=== PATIENT | female | born 1960 | race African-American/Black ===

== ENCOUNTER 2020-07-20 08:44 | Outpatient (CLI) | payer OTHER, SELFPAY | END 2020-07-20 08:45 | disposition home or self-care (01) | LOC: ANHAUDIO 08:46 | DX: H69.91 Unspecified Eustachian tube disorder, right ear (principal) | CPT/HCPCS: 92557; 92567 ==

== ENCOUNTER 2025-01-16 16:36 | Emergency (ER) | payer MEDICARE, MEDICAID, SELFPAY ==
--- OUTSIDE RECORDS SUMMARY | 2025-01-16 16:38 | XMS_ITS | Clinical Summary ---
Author Organization [facility] at [facility] Office Center Address [address] [place] [address] Care Team Providers Care Gis Consultant Name Role Phone CathyRossana beasley IRONER HAND Unavailable [phone] Kenroy Sheikh MD Unavailable [phone] Adry Shay MD Primary Care Provider [phone] Jerson Shoemaker Unavailable Unavailable Kiera Sanders MD Unavailable [phone] Allergies No known active allergies Medications budesonide-formo teroL (Symbicort) 160-4.5 mcg/actuation inhalerIndicatio ns:Moderate persistent asthma with acute exacerbation Inhale 2 puffs 2 (two) times a day Rinse mouth with water after use. Do not swallow. 10.2 g 5 05/20/20 24 Active blood glucose diagnostic (glucose blood) stripIndications :Type 2 diabetes mellitus with diabetic neuropathy, without long-term current use of insulin (HCC) Use to check blood sugar twice a day 200 each 3 07/08/20 24 025 Active baclofen (LIORESAL) 10 mg tablet Take 1 tablet (10 mg total) by mouth 3 (three) times a day as needed for muscle spasms 90 tablet 5 09/16/20 24 025 Active albuterol HFA (PROVENTIL HFA,VENTOLIN HFA,PROAIR HFA) 90 mcg/actuation inhalerIndicatio ns:Moderate persistent asthma with acute exacerbation INHALE TWO PUFFS BY MOUTH EVERY FOUR TO SIX HOURS NEEDED 1 each 9 10/04/20 24 Active blood glucose diagnostic (glucose blood) stripIndications :Type 2 diabetes mellitus with diabetic neuropathy, without long-term current use of insulin (HCC) Use to check blood sugar once a day 100 each 3 10/27/19 25 026 Active blood-glucose meter kitIndications:T ype 2 diabetes mellitus with diabetic neuropathy, without long-term current use of insulin (HCC) Use to check blood sugar once a day 1 kit 10/27/19 25 Active lancets (GrowlifeTouch Delica Plus Lancet) 33 gauge miscIndications: Type 2 diabetes mellitus with diabetic neuropathy, without long-term current use of insulin (HCC) USE TO TEST BLOOD SUGAR ONCE DAILY 100 each 3 10/27/19 25 Active rosuvastatin (CRESTOR) 40 mg tablet Take 1 tablet (40 mg total) by mouth daily 90 tablet 1 10/27/19 25 Active lidocaine (LIDODERM) 5 % Place 1 patch on the skin daily Remove & discard patch within 12 hours or as directed by MD. 15 patch 1 10/27/[address] (PROTONIX) 40 mg EC tablet Take 1 tablet (40 mg total) by mouth daily 30 tablet 5 11/05/19 25 026 Active potassium chloride (KAYCIEL) solution 20 mEq/15 mL TAKE 15 MLS BY MOUTH ONCE EVERY DAY. 750 mL 3 11/10/19 25 Active nicotine (NICODERM CQ) 14 mgIndications:Samantha boswell nicotine dependence without complication Place 1 patch on the skin daily 30 patch 2 11/11/19 25 Active benzonatate (TESSALON) 100 mg capsuleIndicatio ns:Cough Take 1 capsule (100 mg total) by mouth every 8 (eight) hours 21 capsule 11/22/19 25 Active acetaminophen (TYLENOL) 500 mg tablet Take 1 tablet (500 mg total) by mouth every 6 (six) hours as needed for pain 30 tablet 11/22/19 25 Active guaiFENesin (ROBITUSSIN) syrup 100 mg/5 mL Take 5-10 mL (100-200 mg total) by mouth every 4 (four) hours as needed for cough 60 mL 11/22/19 25 Active famotidine (PEPCID) 20 mg tablet Take 1 tablet (20 mg total) by mouth 2 (two) times a day 30 tablet 12/10/19 25 Active Jardiance 25 mg tablet TAKE 1 TABLET BY MOUTH DAILY 90 tablet 01/01/20 25 Active fluticasone propionate (FLONASE) 50 mcg/actuation nasal spray ADMINISTER 1 SPRAY INTO EACH NOSTRIL DAILY 1 each 1 01/11/20 25 Active fluticasone propionate (FLONASE) 50 mcg/actuation nasal spray ADMINISTER 1 SPRAY INTO EACH NOSTRIL DAILY 1 each 2 09/27/20 24 025 Discontinued empagliflozin (Jardiance) 25 mg tablet TAKE 1 TABLET BY MOUTH DAILY 90 tablet 10/25/19 25 025 Discontinued Active Problems Problem Noted Date Diagnosed Date Encounter for screening for lung cancer 04/13/20 24 Assessment & Plan (04/13/2024 11:19 AM CDT): Patient is scheduled for lung scan today and she is followed by the circuit court clerk Epigastric pain 10/14/2023 Assessment & Plan (10/14/2023 1:11 PM HOSPITALITY HOST): Patient with chronic epigastric pain and heartburn. Will start her on Prilosec 40 mg daily and make a referral to see a beater engineer helper for further evaluation Allergic rhinitis 09/08/2023 Left sided sciatica 09/08/2023 Assessment & Plan (09/08/2023 4:33 PM HOSPITALITY HOST): Patient with left side sciatica. Tylenol does not help. Will start her on lidocaine patch, 12 hours on and 12 hours off. Will order MRI of the lumbar spine for further evaluation. Near syncope 09/08/2023 Assessment & Plan (07/07/2024 12:41 PM CDT): Patient complains of episodes of dizziness and near-syncope. Her Accu-Chek in the office is 110. Will order Accu-Chek machine and told her to check her sugar at least twice daily. Her blood pressure is on the low side. Stop amlodipine. Advised to follow up with her bi tri operator for these symptoms. Blood work was ordered. Will obtain CT of the head with no contrast. Will make a referral to see a neurologist. Seem that she had similar symptoms last year and I ordered CT of the head and Neurology referral but she never followed up on that. Discussed with her the importance of compliance with that. Advised to go to the ER for recurrent symptoms. I recommended that she does not drive for the time being till she gets evaluated. Will see her again for follow-up in about 3 weeks. Assessment & Plan (09/08/2023 4:32 PM HOSPITALITY HOST): Patient with headache and near-syncope. Exam is unremarkable. Will obtain CT of the head and make a referral to see a neurologist for further evaluation. Neck pain 08/13/2023 Sore throat 08/13/2023 Cervical cancer screening 08/11/2023 Encounter for well woman ifrah umñiz with routine gynecological exam 08/11/2023 Assessment & Plan (08/11/2023 5:30 PM HOSPITALITY HOST): Pap smear with HPV cotesting completed. Mammogram on file. We will notify the patient of all results. Follow up in one year or sooner if needed. Patient verbalizes understanding regarding plan of care and all questions answered. Left ear pain 07/14/2023 Assessment & Plan (07/14/2023 2:31 PM CDT): Patient with left earache. Was treated in the emergency room with Augmentin for 10 days. She has persistent symptoms. Ear exam is normal. She has mild tenderness in the left temporomandibular joint. Most likely she has TMJ. She was advised to take Aleve or Advil as needed. Patient can follow-up with her dentist Left knee pain 05/21/2023 Dysuria 05/21/2023 Assessment & Plan (08/11/2023 5:30 PM HOSPITALITY HOST): UA unremarkable. Discussed MOA of Jardiance and that she will likely get used to medication. Advised her to trial medication and follow up with Dr. Shay. Dental abscess 05/21/2023 Chest pain, unspecified type 04/12/2023 Localized swelling of left foot 04/12/2023 BMI 32.0-32.9,adult 02/17/2023 Colitis 11/18/2022 Assessment & Plan (11/18/2022 4:21 PM HOSPITALITY HOST): Patient was diagnosed with colitis and she was treated with antibiotics. She has no GI complaints. Diabetic neuropathy, type II diabetes mellitus 0 11/18/2022 Assessment & Plan (10/27/2024 3:59 PM HOSPITALITY HOST): Continue current medications, discussed low carbohydrate diet, advised to exercise on regular basis, advised to have annual eye exam. We will continue to monitor. Assessment & Plan (07/07/2024 7:50 AM CDT): Hemoglobin A1c 6.7. Continue current medications. Advised to have annual eye exam. Assessment & Plan (04/13/2024 7:48 AM CDT): Hemoglobin A1c 6.7. Continue current medications. Advised to have annual eye exam. Assessment & Plan (01/13/2024 12:07 PM CDT): Hemoglobin A1c 6.7. Continue current medications. Advised to have annual eye exam. Assessment & Plan (10/14/2023 1:11 PM HOSPITALITY HOST): Hemoglobin A1c 7.3. Increase Jardiance to 25 mg daily. Continue gabapentin. Advised to have annual eye exam. Assessment & Plan (05/21/2023 4:03 PM CDT): Hemoglobin A1c 7.3. Increase Jardiance to 25 mg daily. Continue gabapentin. Advised to have annual eye exam. Assessment & Plan (02/17/2023 4:22 PM CDT): Last hemoglobin A1c was 6.7. Increase gabapentin to 300 mg t.i.d.. Side effects were explained. Continue low carb diet. Discussed weight loss. Repeat hemoglobin A1c Chronic left maxillary sinusitis 11/12/2022 Seasonal allergic rhinitis due to pollen 023 Cellulitis of face 09/06/2022 Assessment & Plan (09/06/2022 10:36 AM HOSPITALITY HOST): Patient with mild cellulitis of the face that is improving. She will continue Keflex. She was advised strongly to call us back if she has persistent or recurrent symptoms. Screening for lung cancer 07/02/2022 Assessment & Plan (04/13/2024 7:53 AM CDT): Advised to have annual lung scan. Followed by the circuit court clerk Assessment & Plan (01/13/2024 12:10 PM CDT): Patient is followed by the circuit court clerk for lung cancer screening and advised to do the test every year. Assessment & Plan (07/02/2022 11:05 AM CDT): Patient is followed by the circuit court clerk for lung cancer screening and advised to do the test every year. I will order the test for her Mixed hyperlipidemia 03/01/2022 Assessment & Plan (10/27/2024 3:59 PM HOSPITALITY HOST): Continue Crestor and low-fat diet. Advised to have blood work done Assessment & Plan (07/07/2024 7:50 AM CDT): Continue Crestor and low-fat diet. Advised to have blood work done Assessment & Plan (04/13/2024 7:51 AM CDT): Continue Crestor and low-fat diet. Advised to have blood work done Assessment & Plan (01/13/2024 12:09 PM CDT): Cholesterol is elevated. Increase Crestor to 40 mg q.h.s.. Discussed low-fat diet. Repeat blood work in few months. Assessment & Plan (10/14/2023 1:11 PM HOSPITALITY HOST): Controlled on current medications. Continue low-fat diet. Will continue to monitor . Assessment & Plan (05/21/2023 12:42 PM CDT): Controlled on current medications. Continue low-fat diet. Will continue to monitor . Assessment & Plan (02/17/2023 12:15 PM CDT): Controlled on current medications. Continue low-fat diet. Will continue to monitor . Assessment & Plan (11/18/2022 3:23 PM HOSPITALITY HOST): Recent lipid panel looks good. I discussed again heart healthy diet. Recent labs reviewed with it. Lipid I am going to repeat her fasting lipids and the LFTs prior to next appointment. Encouraged her to be active as much as she can. Her soreness is the reproducible after she did the pushups. Advised her to contact me or you he has any persistent symptoms Assessment & Plan (09/06/2022 10:36 AM HOSPITALITY HOST): Controlled on current medications. Continue low-fat diet. Will continue to monitor . Assessment & Plan (07/02/2022 11:07 AM CDT): Patient said that she does not take Crestor. We discussed the importance of compliance with medication and low-fat diet. I will resume the medication. Order blood work before next visit. Assessment & Plan (03/29/2022 12:37 PM CDT): Controlled on Crestor and low-fat diet Encounter for colonoscopy due to history of colo elver polyp 02/08/2022 Systemic viral illness 02/08/2022 Gall bladder stones 01/10/2022 Assessment & Plan (01/10/2022 10:52 AM CDT): Surgical referral for possible cholecystectomy Mixed stress and urge urinary incontinence 11/23 LIZ (obstructive sleep apnea) 10/03/2021 Assessment & Plan (04/13/2024 7:51 AM CDT): Patient uses CPAP machine Assessment & Plan (01/13/2024 12:09 PM CDT): Patient uses CPAP machine Assessment & Plan (05/21/2023 12:42 PM CDT): Patient uses CPAP machine Assessment & Plan (02/17/2023 12:15 PM CDT): Patient uses CPAP machine Assessment & Plan (11/13/2022 2:51 PM HOSPITALITY HOST): Patient continue to wear her CPAP at 10 cm water pressure while sleeping. Her DME is [employer]. I did encourage the patient to increase the use of her CPAP. The patient states that she has seen an software release engineer. The patient states she is going to metal pickling equipment operator the medication that the software release engineer prescribed. The patient states that she did not tolerate a fullface mask. Assessment & Plan (08/07/2022 3:02 PM CDT): I did send an order over to [employer] to have the machine repaired/troubleshoot to determined functionality of the CPAP machine. Patient will continue CPAP at 10 cm water pressure. I have also ordered a full set of supplies. DME [employer] Assessment & Plan (07/29/2022 12:56 PM CDT): Patient continue to wear her CPAP at 10 cm water pressure while sleeping. DME [employer]. The patient was educated on the need to continue CPAP therapy at least 4 hours a night on 70% of the nights to reach optimal benefit of therapy. Assessment & Plan (07/02/2022 8:01 AM CDT): Patient does not use CPAP machine. She could not tolerate it Assessment & Plan (03/29/2022 12:34 PM CDT): Patient could not tolerate CPAP machine Assessment & Plan (12/21/2021 12:06 PM CDT): Patient could not tolerate CPAP machine. She was advised to follow up with the sleep specialist Assessment & Plan (10/03/2021 11:22 AM HOSPITALITY HOST): Due to the slightly elevated AHI and the patient stating that she is not getting enough pressure in the machine. I have turned the CPAP machine up to 10 cm water pressure. DME [employer]. The patient was educated on the need to continue CPAP therapy at least 4 hours a night on 70% of the nights to reach optimal benefit of therapy. Cough 09/21/2021 Assessment & Plan (09/21/2021 11:46 AM HOSPITALITY HOST): Patient was advised to continue Proventil inhaler p.r.n. and she can try Mucinex. If she has worsened symptoms or if she has fever or if she developed discolored mucus she will call back Dysphagia 03/14/2021 Assessment & Plan (09/21/2021 8:55 AM HOSPITALITY HOST): Managed by the beater engineer helper Assessment & Plan (06/22/2021 9:50 AM CDT): Status post dilatation Assessment & Plan (03/22/2021 9:34 AM CDT): Status post esophageal dilatation with persistent symptoms. She is followed by the GI doctor and she will have manometric study Helicobacter pylori gastritis 12/06/2020 Assessment & Plan (12/06/2020 10:23 AM HOSPITALITY HOST): Patient was started on antibiotics and she will continue the medications and she has follow-up with the beater engineer helper Spinal stenosis of lumbar re gion without neurogenic claudication 12/06/2020 Assessment & Plan (07/07/2024 7:51 AM CDT): Patient has history of spinal stenosis. We ordered MRI of the lumbar spine which was not done and we made a referral to see pain management which seems that she did not follow-up with that. Assessment & Plan (01/13/2024 12:09 PM CDT): Patient with history of severe spinal stenosis and chronic back pain. Will repeat MRI of the lumbar spine. We will make a referral to see pain management again. She has not interested in surgery. Assessment & Plan (10/14/2023 1:12 PM HOSPITALITY HOST): Advised to follow-up with the orthopedic doctor Assessment & Plan (05/21/2023 12:42 PM CDT): Patient is on gabapentin and followed by the orthopedic surgeon Assessment & Plan (07/02/2022 8:01 AM CDT): Patient is on gabapentin and followed by the orthopedic surgeon Assessment & Plan (03/29/2022 12:33 PM CDT): Patient takes gabapentin and followed by the computer specialist Assessment & Plan (09/21/2021 8:56 AM HOSPITALITY HOST): Continue gabapentin Assessment & Plan (06/22/2021 9:50 AM CDT): Continue gabapentin Assessment & Plan (03/22/2021 8:07 AM CDT): Patient is maintained on gabapentin currently stable Assessment & Plan (12/06/2020 10:23 AM HOSPITALITY HOST): Asymptomatic Chronic bilateral low back pain with left-sided sciatica 11/01/2020 Assessment & Plan (10/27/2024 3:58 PM HOSPITALITY HOST): Patient to follow-up with the pain management. She is on lidocaine patches. Assessment & Plan (01/13/2024 12:07 PM CDT): Patient complains of chronic back pain. She was seen by work station support specialist and pain management. She had injections in the past. Will repeat MRI of the lumbar spine Assessment & Plan (12/21/2021 12:05 PM CDT): Patient is currently stable Assessment & Plan (12/06/2020 10:23 AM HOSPITALITY HOST): X-ray showed degenerative disc disease and MRI from 2017 showed spinal stenosis. The patient is currently stable Assessment & Plan (11/01/2020 10:44 AM HOSPITALITY HOST): Patient was started recently on gabapentin. Patient has mild intermittent chronic back pain. She does not need pain medications at this time. Hypertension, essential 08/17/2020 Assessment & Plan (10/27/2024 4:00 PM HOSPITALITY HOST): Blood pressure is stable without medications Assessment & Plan (07/07/2024 12:41 PM CDT): Blood pressure is on the low side. There is no orthostasis. Stop amlodipine. Will evaluate her again in 3 weeks. Assessment & Plan (04/13/2024 7:49 AM CDT): Continue current medications. Discussed low-salt diet. Discussed exercise on regular basis. Will continue to monitor Assessment & Plan (01/13/2024 12:08 PM CDT): Continue current medications. Discussed low-salt diet. Discussed exercise on regular basis. Will continue to monitor Assessment & Plan (10/14/2023 1:11 PM HOSPITALITY HOST): Continue current medications. Discussed low-salt diet. Discussed exercise on regular basis. Will continue to monitor Assessment & Plan (05/21/2023 12:42 PM CDT): Continue current medications. Discussed low-salt diet. Discussed exercise on regular basis. Will continue to monitor Assessment & Plan (02/17/2023 12:15 PM CDT): Continue current medications. Discussed low-salt diet. Discussed exercise on regular basis. Will continue to monitor Assessment & Plan (11/18/2022 3:22 PM HOSPITALITY HOST): Blood pressure is well controlled. Continue low-salt diet and amlodipine. Assessment & Plan (07/02/2022 8:01 AM CDT): Continue current medications. Discussed low-salt diet. Discussed exercise on regular basis. Will continue to monitor Assessment & Plan (03/29/2022 8:05 AM CDT): Continue current medications. Discussed low-salt diet. Discussed exercise on regular basis. Will continue to monitor Assessment & Plan (12/21/2021 12:05 PM CDT): Continue current medications. Discussed low-salt diet. Discussed exercise on regular basis. Will continue to monitor Assessment & Plan (09/21/2021 8:56 AM HOSPITALITY HOST): Continue current medications. Discussed low-salt diet. Discussed exercise on regular basis. Will continue to monitor Assessment & Plan (06/22/2021 9:50 AM CDT): Continue current medications. Discussed low-salt diet. Discussed exercise on regular basis. Will continue to monitor Assessment & Plan (03/22/2021 8:06 AM CDT): Continue current medications. Discussed low-salt diet. Discussed exercise on regular basis. Will continue to monitor Assessment & Plan (12/06/2020 10:22 AM HOSPITALITY HOST): Continue current medications. Discussed low-salt diet. Discussed exercise on regular basis. Will continue to monitor Assessment & Plan (11/01/2020 10:44 AM HOSPITALITY HOST): Continue amlodipine and low-salt diet Allergic rhinitis due to allergen 08/17/2020 Assessment & Plan (12/21/2021 12:05 PM CDT): Continue Flonase and I will add Claritin 10 mg daily Assessment & Plan (11/01/2020 10:44 AM HOSPITALITY HOST): Controlled on Claritin and Flonase GERD (gastroesophageal reflux disease) 0 Assessment & Plan (05/14/2024 11:58 AM CDT): Patient with the chronic gastroesophageal reflux symptoms. She is on Prilosec 40 mg twice daily. She went to the ER because of burning sensation in the chest wall area. The workup was negative. She also was evaluated by ENT Few days ago. Patient was advised to follow up with her beater engineer helper as she continues to have these symptoms on chronic basis. She was advised to avoid food that triggers the symptoms. Further recommendations per the beater engineer helper Assessment & Plan (04/13/2024 7:48 AM CDT): Maintained on Prilosec and followed by the Gastroenterology Assessment & Plan (01/10/2022 10:52 AM CDT): Maintained on Prilosec and followed by the Gastroenterology Assessment & Plan (12/06/2020 10:22 AM HOSPITALITY HOST): Continue Prilosec Prediabetes 06/15/2020 Overview (05/21/2023): A1C 6.4 10/2019 Abnormal EKG 02/23/2020 Shortness of breath 02/23/2020 Assessment & Plan (01/10/2022 10:53 AM CDT): Patient went to the ER because of shortness breath and cough. The workup was essentially unremarkable. Chest x-ray was unremarkable. Blood work was okay. Patient is currently asymptomatic. She has follow-up to see circuit court clerk. Discussed smoking cessation. Advised to try nicotine patches. Other chest pain 02/23/2020 Assessment & Plan (11/18/2022 4:20 PM HOSPITALITY HOST): Patient with atypical chest pain. Most likely it is muscular in origin. It had subsided. She is followed by bi tri operator. Recent cardiac workup was negative. Assessment & Plan (11/01/2020 10:44 AM HOSPITALITY HOST): Patient has atypical chest pain. She had normal stress test in February 2020. I advised her to follow up with the bi tri operator. She had an appointment with him recently but she did not keep it. We give her the information to call the bi tri operator and make a follow-up. She understands the importance of that. Preoperative clearance 02/23/2020 Tobacco abuse 02/23/2020 Assessment & Plan (04/13/2024 11:19 AM CDT): Patient quit smoking in November 2022 but she started smoking again last month. She smokes less than 5 cigarettes daily. She wants to quit smoking. We will start her on nicotine patches. Assessment & Plan (01/13/2024 12:10 PM CDT): Patient quit smoking in November 2022 Assessment & Plan (05/21/2023 12:42 PM CDT): Patient quit smoking in November 2022 Assessment & Plan (02/17/2023 4:24 PM CDT): Patient quit smoking in November 2022 Assessment & Plan (11/18/2022 3:22 PM HOSPITALITY HOST): She quit smoking 2 months ago. Encouraged her to abstain from smoking. Assessment & Plan (07/02/2022 8:02 AM CDT): Discussed smoking cessation and different methods to help with that. Discussed the risks of smoking including COPD, CAD and lung cancer etc. Total time spent was 3 minutes. Assessment & Plan (03/29/2022 8:05 AM CDT): Discussed smoking cessation again Assessment & Plan (01/10/2022 10:52 AM CDT): Discussed smoking cessation and different methods to help with that. Discussed the risks of smoking including COPD, CAD and lung cancer etc. Total time spent was 3 minutes. Assessment & Plan (12/21/2021 12:05 PM CDT): Discussed smoking cessation and different methods to help with that. Discussed the risks of smoking including COPD, CAD and lung cancer etc. Total time spent was 3 minutes. Will try her on nicotine patches Assessment & Plan (09/21/2021 11:47 AM HOSPITALITY HOST): Discussed smoking cessation and different methods to help with that. Discussed the risks of smoking including COPD, CAD and lung cancer etc. patient does CT lung screen through the circuit court clerk. Total time spent was 3 minutes. Assessment & Plan (06/22/2021 9:51 AM CDT): Patient said that she smokes five cigarettes daily. Discussed smoking cessation and different methods to help with that. Discussed the risks of smoking including COPD, CAD and lung cancer etc. Total time spent was 3 minutes. Assessment & Plan (03/22/2021 9:35 AM CDT): Discussed smoking cessation and different methods to help with that. Discussed the risks of smoking including COPD, CAD and lung cancer etc. patient will be started on nicotine patch and side effects were explained. Total time spent was 4 minutes. Assessment & Plan (12/06/2020 10:22 AM HOSPITALITY HOST): Discussed smoking cessation and different methods to help with that. Discussed the risks of smoking including COPD, CAD and lung cancer etc. Total time spent was 3 minutes. Assessment & Plan (11/01/2020 10:44 AM HOSPITALITY HOST): Discussed smoking cessation and different methods to help with that. Discussed the risks of smoking including COPD, CAD and lung cancer etc. Total time spent was 3 minutes. Serous otitis media 09/15/2019 Acute sinusitis 09/15/2019 Assessment & Plan (04/13/2024 11:18 AM CDT): Patient was seen in the ER couple of days ago for possible sinus infection. She was started on doxycycline. She has an appointment to see the ENT doctor next week. Acute otitis media 09/15/2019 COPD (chronic obstructive pulmonary disease) Assessment & Plan (10/27/2024 4:00 PM HOSPITALITY HOST): Patient is maintained on Symbicort and followed by the circuit court clerk Assessment & Plan (07/07/2024 7:53 AM CDT): Patient is maintained on Symbicort and followed by the circuit court clerk Resolved Problems Problem Noted Date Diagnosed Date Resolved Date Controlled type 2 diabetes m ellitus without complication, without long-term current use of insulin 03/29/2022 02/16/2023 Assessment & Plan (11/18/2022 4:21 PM HOSPITALITY HOST): Continue low calorie diet and encouraged exercise on regular basis Assessment & Plan (07/02/2022 8:02 AM CDT): Continue current medications, discussed low carbohydrate diet, advised to exercise on regular basis, advised to have annual eye exam. We will continue to monitor. Assessment & Plan (03/29/2022 8:10 AM CDT): Hemoglobin A1c 6.9. We had very lengthy discussion about the importance of keeping sugar under control with diet and exercise. Discussed medications. Advised to have annual eye exam. Discussed complications of diabetes including CAD and CVA and chronic kidney disease and others Hypersomnia 05/11/2021 08/07/2022 Snoring 03/22/2021 08/07/2022 Assessment & Plan (05/11/2021 12:37 PM CDT): I recommended that the patient completed a nocturnal polysomnogram split night protocol if necessary, no MSLT. Assessment & Plan (03/22/2021 9:34 AM CDT): Will make a referral for sleep study Encounters Date Type Department Care Team Description 12/10/2024 [facility] Outreach [facility] Accountable Care Organization [address] [place] [id number] Keisha Wright MA 12/09/2024 7:06 AM HOSPITALITY HOST - 12/09/2024 11:45 AM [facility] Emergency [address] [address] Gastroesophageal reflux disease without esophagitis (Primary Dx) Discharge Disposition: Discharge to home or self care 11/22/2024 10:39 AM HOSPITALITY HOST - 11/22/2024 11:25 AM [facility] Emergency [address] [address] COVID-19 (Primary Dx) Discharge Disposition: Discharge to home or self care 11/11/2024 10:30 AM HOSPITALITY HOST Office Visit [facility] Pulmonology [facility] [address] [phone] Kiera Sanders MD Chronic obstructive pulmonary disease, unspecified COPD type (HCC) (Primary Dx); Moderate persistent asthma without complication; Chronic rhinitis; Cigarette nicotine dependence without complication 11/10/2024 Telephone [facility] Internal Medicine [address] [place] [phone] Yohannes Hernandez MA 11/05/2024 Telephone [facility] Internal Medicine [address] [place] [phone] Adry Shay MD Med Refill 11/03/2024 2:30 PM HOSPITALITY HOST Lab [facility] Lab [address] [place] [id number] Near syncope; Type 2 diabetes mellitus with diabetic neuropathy, without long-term current use of insulin ([facility]); Mixed hyperlipidemia; Low blood potassium 11/03/2024 1:13 PM HOSPITALITY HOST - 11/03/2024 11:59 PM HOSPITALITY HOST Hospital Encounter [facility] Respiratory [address] [place] [phone] Moderate persistent asthma without complication; Chronic obstructive pulmonary disease, unspecified COPD type ([facility]) Discharge Disposition: Discharge to home or self care 10/27/2024 3:45 PM HOSPITALITY HOST Office Visit [facility] Internal Medicine [address] [place] [phone] Adry Shay MD Chronic bilateral low back pain with left-sided sciatica (Primary Dx); Type 2 diabetes mellitus with diabetic neuropathy, without long-term current use of insulin (HCC); BMI 24.0-24.9, adult; Screening for tuberculosis; Mixed hyperlipidemia; Simple chronic bronchitis (HCC) from Last 3 Months Immunizations Immunization Administration Dates Next Due Influenza, Quadrivalent, Spl it, Preservative Free, Intramuscular 07/14/2023,07/02/2022,09/21/2021 Influenza, Trivalent, Preser vative Free, Intramuscular 10/27/2024 Moderna SARS-CoV-2 Monovalen t Vaccination (12+ YRS) 06/15/2021 PPD TEST 11/03/2024,10/27/2024 Pfizer SARS-CoV-2 Monovalent Vaccination (12+ Yrs) PURPLE 05/27/2022 Pneumococcal Polysaccharide PPV23 09/06/2022 Tdap 11/01/2020 ZOSTER Recombinant 02/28/2024 Surgical History Surgery Date Site/Laterality Comments TUBAL LIGATION TOTAL ABDOMINAL HYSTERECTOMY W/ BILATERAL SALPINGOOPHORECTOMY 10/06/1997 - 10/05/1998 she has a CERVIX UPPER GASTROINTESTINAL ENDOSCOPY LAPAROSCOPIC CHOLECYSTECTOMY 05/20/2022 ESOPHAGOGASTRODUODENOSCOPY Medical History Medical History Date Comments Allergic rhinitis 08/17/2020 GERD (gastroesophageal reflux disease) 0 Neuropathy Spinal stenosis Dysphagia Patient takes me dications with apple sauce Chronic constipation LIZ (obstructive sleep apnea) History of esophageal dilatation Lumbar facet arthropathy Anterolisthesis of lumbosacral spine 01/08/2022 Grade 1 L5 on S1 DDD (degenerative disc disease), lumbar Lumbarization, vertebra 01/08/2022 S1 Kidney stone Hypertension Controlled type 2 diabetes m ellitus without complication, without long-term current use of insulin ([facility]) 03/29/2022 COPD (chronic obstructive pu lmonary disease) ([facility]) Diabetes ([facility]) Acid reflux disease Ear problems Family History Medical History Relation Name Comments Hypertension Father Hypertension Maternal Grandmother Hypertension Mother Relation Name Status Comments Father Maternal Grandmother Mother Social History Tobacco Use Types Packs/Day Years Used Date Smoking Tobacco: Former Cigarettes 1.5 45.8 1 977 - 04/05/2024 Passive Smoke Exposure: Past Smokeless Tobacco: Never Tobacco Cessation:Counseling Given: Not Answered Alcohol Use Standard Drinks/Week Comments Not Currently 0 (1 standard drink = 0.6 oz pur e alcohol) seldom Social Connection and Isolat ion Panel [NHANES] Answer Date Recorded In a typical week, how many times do you talk on the phone with family, friends, or neighbors? More than three times a week 04/14/2023 How often do you get togethe r with friends or relatives? More than three times a week 04/14/2023 How often do you attend chur [employer] or caodaism services? Never 04/14/2023 Do you belong to any clubs o r organizations such as jewish groups, unions, fraternal or athletic groups, or school groups? No 04/14/2023 How often do you attend meet ings of the clubs or organizations you belong to? Never 04/14/2023 Are you , , di vorced, , never , or living with a partner? Never 04/14/2023 AUDIT-C Answer Date Recorded Q1: How often do you have a drink containing alc ohol? Monthly or less 10/27/2024 Q2: How many drinks containi ng alcohol do you have on a typical day when you are drinking? 1 or 2 10/27/2024 Q3: How often do you have si x or more drinks on one occasion? Never 10/27/2024 Overall Financial Resource Strain (CARDIA) Answe r Date Recorded How hard is it for you to pa y for the very basics like food, housing, medical care, and heating? Not very hard 04/14/2023 PHQ-2 Answer Date Recorded PHQ-2 Total Score (If total score is 3 or more points, staff should administer the PHQ-9) 0 10/27/2024 Hunger Vital Sign Answer Date Recorded Within the past 12 months, y ou worried that your food would run out before you got the money to buy more. Never true 04/14/20 23 Within the past 12 months, t he food you bought just didn't last and you didn't have money to get more. Never true 04/14/2023 PRAPARE - Transportation Answer Date Re corded In the past 12 months, has l ack of transportation kept you from medical appointments or from getting medications? No 04/05 In the past 12 months, has l ack of transportation kept you from meetings, work, or from getting things needed for daily living? No 04/14/2023 Housing Stability Vital Sign Answer Daljit e Recorded In the last 12 months, was t here a time when you were not able to pay the mortgage or rent on time? No 04/14/2023 In the last 12 months, how many places have you lived? 1 04/14/2023 In the last 12 months, was t here a time when you did not have a steady place to sleep or slept in a senior living (including now)? No 04/14/2023 Personal Safety Answer Date Recorded Have you ever been in or are you currently in a harmful physical or emotional relationship or is someone making you feel afraid or unsafe? Denies 12/09/2024 Comments No Sex and Gender Information Value Date Recorded Sex Assigned at Not on file Legal Sex Female 12:24 AM HOSPITALITY HOST Gender Identity Not on file Sexual Orientation Not on file Obstetrics History Para Term AB IAB SAB Ectopic Multiple Livin g Live Births 5 5 5 5 5 Date Outcome GA Total Labor Labor//3rd Weight Sex Type Anes PTL Sejal A1 A5 Name Clin 1973 Term F Vag-S pont Living 1977 Term M Vag-S pont Living 1978 Term F Vag-S pont Living 1979 Term F Vag-S pont Living 1980 Term F Vag-S pont Living Last Filed Vital Signs Vital Sign Reading Time Taken Comments Blood Pressure 165/93 12/09/2024 11:34 AM HOSPITALITY HOST Pulse 63 12/09/2024 11:34 AM HOSPITALITY HOST Temperature 36.9 C (98.4 F) 12/09/2024 6:36 AM HOSPITALITY HOST Respiratory Rate 21 12/09/2024 11:34 AM HOSPITALITY HOST Oxygen Saturation 95% 12/09/2024 11:34 AM HOSPITALITY HOST Inhaled Oxygen Concentration - - Weight 73 kg (160 lb 15 oz) 12/09/2024 6:[address] Height 170 cm (5' 6.93 ) 12/09/2024 6:36 AM HOSPITALITY HOST Body Mass Index 25.26 12/09/2024 6:36 AM HOSPITALITY HOST Plan of Treatment Health Maintenance Due Date Last Done Comments Osteoporosis Screening-Bone Density Scan 1960 Hepatitis B Screening 12/17/1977 Foot Exam 07/02/2023 07/02/2022 Pneumococcal vaccine 65+ (2 of 2 - PCV) 09/06/2023 09/06/2022 Zoster Vaccine (2 of 2) 04/24/2024 02/28/2024 Albumin Creatinine Ratio, Urine 05/21/2024 , 07/02/2022 Covid-19 Vaccine (2023-2 5 season) 2024 05/27/2022, 05/27/2022, 06/15/2021, Additional history exists Dilated Eye Exam 07/03/2024 07/03/2023 Well Visit 65+ 12/17/2024 08/11/2023, 01/17/2021 Breast Cancer Screening-Mammogram 12/29/2024 12/30/2023, 10/17/2022, 02/22/2021, Additional history exists Lung Cancer Screening 04/14/2025 04/13/2024 , 07/24/2022, 05/29/2021, Additional history exists Hemoglobin A1C 05/03/2025 11/03/2024, 12/05, 05/21/2023, Additional history exists Depression Screening 10/27/2025 10/27/2024, 07/07/2024, 04/13/2024, Additional history exists Fall Risk Assessment 10/27/2025 10/27/2024, 07/07/2024, 04/13/2024, Additional history exists Lipid Panel 11/03/2025 11/03/2024, 07/0 06/2024, 12/30/2023, Additional history exists eGFR 12/09/2025 12/09/2024, 10/07, 09/14/2024, Additional history exists Colon Cancer Screening-Colonoscopy 03/17/2027 03/17/2024, 11/24/2020 DTaP/Tdap/Td Vaccine (2 - Td or Tdap) 11/01/2030 11/01/2020 Hepatitis C Screening Completed 05/21/2023 Cervical Cancer Screening Discontinued 08/11/2023, 04/2021 Colon Cancer Screening-CT Colonography Discontinued 03/17/2024, 11/24/2020 Colon Cancer Screening-DNA Stool Discontinued 03/17/20, 11/24/2020 Colon Cancer Screening-FIT Discontinued 03/17/2024, Colon Cancer Screening-Sigmoidoscopy Discontinued 03/17/2024, 11/24/2020 Influenza Vaccine Completed 10/27/2024, , 07/02/2022, Additional history exists Procedures Procedure Name Priority Date/Time Associated Diagnosis Comments TROPONIN T HIGH-SENSITIVITY 4-HR Timed 12/09/2024 10:30 AM HOSPITALITY HOST URINALYSIS AND REFLEX TO MICROSCOPIC AND CULTURE STAT 12/09/2024 9:[address] CHEST ABDOMEN PELVIS W CONTRAST ED 12/09/2024 9:06 AM HOSPITALITY HOST XR CHEST 1 VIEW ED 12/09/2024 7:13 AM HOSPITALITY HOST EGFR STAT 12/09/2024 6:53 AM HOSPITALITY HOST DIFFERENTIAL AUTO STAT 12/09/2024 6:5 3 AM HOSPITALITY HOST LIPASE STAT 12/09/2024 6:53 AM HOSPITALITY HOST TROPONIN T HIGH-SENSITIVITY SERIES (BASELINE, 2HR, 4HR, 6HR) STAT 12/09/2024 6:53 AM HOSPITALITY HOST COMPREHENSIVE METABOLIC PANEL STAT 12/09/2024 6:53 AM HOSPITALITY HOST CBC WITH AUTO DIFFERENTIAL STAT 12/09/2024 6:53 AM HOSPITALITY HOST INFLUENZA A/B, RSV, AND COVID-19 PCR STAT 12/09/2024 6:53 AM HOSPITALITY HOST STREPTOCOCCUS GROUP A PCR STAT 12/09/2024 6:53 AM HOSPITALITY HOST ECG 12-LEAD STAT 12/09/2024 6:44 AM HOSPITALITY HOST XR CHEST PA LATERAL 2 VIEWS ED 11/22/2024 10:20 AM HOSPITALITY HOST STREPTOCOCCUS GROUP A PCR STAT 11/22/2024 10:04 AM HOSPITALITY HOST INFLUENZA A/B, RSV, AND COVID-19 PCR STAT 11/22/2024 10:04 AM HOSPITALITY HOST PULMONARY FUNCTION TEST (PFT) Routine 11/03/2024 2:31 PM HOSPITALITY HOST Moderate persistent asthma without complication Chronic obstructive pulmonary disease, unspecified COPD type (HCC) EGFR Routine 11/03/2024 1:28 PM HOSPITALITY HOST Type 2 diabetes mellitus with diabetic neuropathy, without long-term current use of insulin (HCC) DIFFERENTIAL AUTO Routine 11/03/2024 1:2 8 PM HOSPITALITY HOST Near syncope COMPREHENSIVE METABOLIC PANEL Routine 11/03/2024 1:28 PM HOSPITALITY HOST Type 2 diabetes mellitus with diabetic neuropathy, without long-term current use of insulin (HCC) LIPID PANEL Routine 11/03/2024 1:28 PM HOSPITALITY HOST Type 2 diabetes mellitus with diabetic neuropathy, without long-term current use of insulin (HCC) Mixed hyperlipidemia HEMOGLOBIN A1C Routine 11/03/2024 1:28 PM HOSPITALITY HOST Type 2 diabetes mellitus with diabetic neuropathy, without long-term current use of insulin (HCC) CBC WITH AUTO DIFFERENTIAL Routine 11/03/2024 1:28 PM HOSPITALITY HOST Near syncope PPD TEST Routine 11/01/2024 1:00 PM HOSPITALITY HOST Encounter for PPD test CT LUNG CANCER SCREENING Schedule Routine, Read Routine (OP Routine) 04/13/2024 1:04 PM CDT Personal history of nicotine dependence COLONOSCOPY Routine 03/17/2024 2:28 PM CDT SCREENING MAMMOGRAM BILATERAL W DARIUSZ Schedule Routine, Read Routine (OP Routine) 12/30/2023 1:35 PM CDT Breast cancer screening by mammogram PAP AND HIGH RISK HPV, REFLEX TO GENOTYPING Routine 08/11/2023 11:56 AM HOSPITALITY HOST Cervical cancer screening HM DIABETES EYE EXAM Routine 07/03/2023 HEPATITIS C ANTIBODY Routine 05/21/2023 4:28 PM CDT Screening due ALBUMIN CREATININE RATIO, URINE Routine 05/21/2023 4:23 PM CDT Type 2 diabetes mellitus with diabetic neuropathy, without long-term current use of insulin (HCC) from Last 3 Months or Most Recently Relevant to Health Maintenance Results * Troponin T high-sensitivity 4-hour (12/09/2024 10:30 AM HOSPITALITY HOST) Trop T hs 13 <=14 ng/L Comment: Interpretive Data For further hscTnT resources including the diagnostic algorithm and an aid in interpretation, copy and paste this link: https://nrl.testcatalog.org/show/hsTrop Current Interpretive Data last revised 2020. Trop T hs delta 3 ng/L [facility] Trop T hs interp Insignificant [facility] Blood 12/09/2024 10:3 0 AM HOSPITALITY HOST 12/09/2024 10:34 AM HOSPITALITY HOST Estephanie [facility] BLOOD ORDERABLES Final Re sult Performing Organization Address [facility] Co de Phone Number HUNTER [phone] [facility] [place] [address] * (ABNORMAL) Urinalysis reflex to microscopic and culture Urine (12/09/2024 9:57 AM HOSPITALITY HOST) Color, ur Straw Yellow Clarity, ur Clear Clear [facility] Specific gravity, ur 1.038(H) 1.003 - 1.[address] [facility] pH, urine 7.[address] [facility] Comment: Interpretive Data U rine pH is affected by diet, medications, systemic acid-base disturbances, and renal tubular function. pH may affect urinary stone formation. For example, urine pH below 6.0 may help reduce the tendency for calcium phosphate stones and pH greater than 6.0 may reduce the tendency for uric acid stone formation. Source: [facility] Current Interpretive Data was last revised on 2017 Protein, ur ql Negative Negative [facility] Glucose, ur ql 3+(A) Negative [facility] Ketones, ur Negative Negative [facility] Bilirubin, ur Negative Negative [facility] Blood, ur Negative Negative [facility] Urobilinogen, ur <2.0 <2.0 mg/dL [facility] Nitrite, ur Negative Negative [facility] Leukocyte esterase, ur Negative Negative [facility] UA reflex comment Reflex conditions for microscopic UA and culture not met. [facility] Urine 12/09/2024 9:57 AM HOSPITALITY HOST 12/09/2024 10:01 AM HOSPITALITY HOST Estephanie [facility] MICROBIOLOGY - GENERAL OR DERABLES Final Result Performing Organization Address [facility]ZIP Co de Phone Number HUNTER [address] [facility] [place] [address] * CT Chest Abdomen Pelvis W Contrast (12/09/2024 9:06 AM HOSPITALITY HOST) Anatomical Region Laterality Modality Body N/A Computed Tomogra phy 12/09/2024 9:53 AM HOSPITALITY HOST Narrative 12/09/2024 10:05 AM HOSPITALITY HOST EXAM DESCRIPTION: CT CHEST ABDOMEN PELVIS W CONTRAST REASON FOR STUDY: heartburn, upper abd pain, N/V Patient complains of a sore throat for 2 days with epigastric pain and nausea and vomiting. History of hysterectomy and lap sriram TECHNIQUE: CT scan of the chest, abdomen, and pelvis performed with intravenous and without oral contrast using helical scanning technique with dynamic intravenous contrast injection. Reconstructed coronal and sagittal MPR images reviewed. All images stored on PACS. Automated exposure control was used as a dose optimization technique for this examination. CONTRAST TYPE/DOSE: 100mL of IOVERSOL 350 MG IODINE/ML INTRAVENOUS SYRINGE injected via intravenous COMPARISON: 09/14/2024, 07/09/2024, 05/07/2024, 09/03/2023 FINDINGS: CHEST LUNGS: There is no pneumonic consolidation within either lung. There is minimal scarring and atelectasis present. There is atelectasis within the medial right middle lobe, similar to the prior study. Granuloma in the lateral right lower lobe. Central airways patent. PLEURA: No effusion. No pneumothorax. MEDIASTINUM/JAYLON: The visualized thyroid gland is unremarkable. There are scattered mediastinal nodes, including calcified nodes most evident in the right hilar and subcarinal stations. There is mild thickening of the mid and distal esophagus suggested. Consider reflux or esophagitis. Small hiatal hernia HEART: The heart is normal in size without a pericardial effusion. There are coronary artery calcifications. VASCULATURE CHEST: Thoracic aorta is normal in caliber. No dissection. Atherosclerotic changes are noted. There is mild enlargement of the main pulmonary trunk as can be seen in the setting of pulmonary artery hypertension. AXILLA: No adenopathy. CHEST WALL: No masses. No subcutaneous air. HARDWARE/LINES/TUBES: None. MUSCULOSKELETAL CHEST: There is cervical and thoracic spondylosis with degenerative disc disease. Small sclerotic focus in the T4 vertebral body is stable. ABDOMEN/PELVIS LIVER: The liver is stable in size. Mild steatosis. Subcentimeter hypodensity in the centrum of the liver on axial image number 29 is stable. No suspicious hepatic lesion. GALLBLADDER: Surgically absent. BILE DUCTS: Within normal limits post cholecystectomy, grossly stable from prior examination. SPLEEN: Normal size. Granulomas. PANCREAS: No identified cystic or solid masses. No significant calcifications. No adjacent inflammation or peripancreatic fluid collections. Pancreatic duct not dilated. ADRENALS: Subtle thickening of the adrenal glands, nonspecific, stable. KIDNEYS/URINARY TRACT: No suspicious cystic or solid mass. No hydronephrosis or hydroureter. The urinary bladder is unremarkable. GI: The stomach is decompressed, accentuating wall thickness, similar to the prior examination. Duodenal sweep is normal in configuration. Small bowel loops are normal in caliber. No wall thickening or obstruction. The appendix is normal. There is mild increased stool burden within the right hemicolon. The left hemicolon is largely decompressed, limiting evaluation. PERITONEUM: There is no free intraperitoneal air. There is no free fluid. No mesenteric lymphadenopathy. RETROPERITONEUM: No retroperitoneal mass or adenopathy. REPRODUCTIVE: No significant abnormality. VASCULATURE ABDOMEN: Abdominal aorta is atherosclerotic, without aneurysm or dissection. There is lumbar spondylosis and degenerative disc disease. This leads to central canal stenosis and neural foraminal narrowing which appears moderate to severe at the L 4 -5 level. This can be further evaluated with MRI. There is mild osteoarthritis of the hips. No acute osseous abnormality. MUSCULOSKELETAL ABDOMEN PELVIS: No acute finding. OTHER: No significant abnormality. IMPRESSION: Mild thickening of the mid and distal esophagus with small hiatal hernia.. Consider reflux or esophagitis. This can be further evaluated with endoscopy. Mild prominence of gastric wall is likely due to decompression though could also be evaluated with endoscopy if warranted clinically. No consolidation, effusion or pneumothorax. No bowel obstruction, free air or free fluid. Mild increased stool burden within the right hemicolon. Lumbar spondylosis and degenerative disc disease causing what appears to be moderate to severe stenosis at the L4-5 level. This can be further evaluated with MRI. Additional findings as above. THIS IS AN ELECTRONICALLY VERIFIED FINAL REPORT 12/09/2024 10:05 AM - Electronically signed by Ginny Yuen M.D. TW T: Report ID: [id number] Reading Location: [id number] Procedure Note Ginny Yuen MD - 12/09/2024 EXAM DESCRIPTION: CT CHEST ABDOMEN PELVIS W CONTRAST REASON FOR STUDY: heartburn, upper abd pain, N/V Patient complains of a sore throat for 2 days with epigastric pain andnausea and vomiting. History of hysterectomy and lap sriram TECHNIQUE: CT scan of the chest, abdomen, and pelvis performed with intravenous and without oral contrast using helical scanning techniquewith dynamic intravenous contrast injection. Reconstructed coronal and sagittalMPR images reviewed. All images stored on PACS. Automated exposure control was used as a dose optimization technique for this examination. CONTRAST TYPE/DOSE: 100mL of IOVERSOL 350 MG IODINE/ML INTRAVENOUS SYRINGE injected via intravenous COMPARISON: 09/14/2024, 07/09/2024, 05/07/2024, 09/03/2023 FINDINGS: CHEST LUNGS: There is no pneumonic consolidation within either lung. There is minimal scarring and atelectasis present. There is atelectasis within the medial right middle lobe, similar to the prior study. Granuloma in the lateral right lower lobe. Central airways patent. PLEURA: No effusion. No pneumothorax. MEDIASTINUM/JAYLON: The visualized thyroid gland is unremarkable. Thereare scattered mediastinal nodes, including calcified nodes most evident in the right hilar and subcarinal stations. There is mild thickening of the midand distal esophagus suggested. Consider reflux or esophagitis. Small hiatal hernia HEART: The heart is normal in size without a pericardial effusion.There are coronary artery calcifications. VASCULATURE CHEST: Thoracic aorta is normal in caliber. No dissection. Atherosclerotic changes are noted. There is mild enlargement of the main pulmonary trunk as can be seen in the setting of pulmonary artery hypertension. AXILLA: No adenopathy. CHEST WALL: No masses. No subcutaneous air. HARDWARE/LINES/TUBES: None. MUSCULOSKELETAL CHEST: There is cervical and thoracic spondylosis with degenerative disc disease. Small sclerotic focus in the T4 vertebral bodyis stable. ABDOMEN/PELVIS LIVER: The liver is stable in size. Mild steatosis. Subcentimeter hypodensity in the centrum of the liver on axial image number 29 isstable. No suspicious hepatic lesion. GALLBLADDER: Surgically absent. BILE DUCTS: Within normal limits post cholecystectomy, grossly stablefrom prior examination. SPLEEN: Normal size. Granulomas. PANCREAS: No identified cystic or solid masses. No significant calcifications. No adjacent inflammation or peripancreatic fluidcollections. Pancreatic duct not dilated. ADRENALS: Subtle thickening of the adrenal glands, nonspecific, stable. KIDNEYS/URINARY TRACT: No suspicious cystic or solid mass. No hydronephrosis or hydroureter. The urinary bladder is unremarkable. GI: The stomach is decompressed, accentuating wall thickness, similar tothe prior examination. Duodenal sweep is normal in configuration. Smallbowel loops are normal in caliber. No wall thickening or obstruction. Theappendix is normal. There is mild increased stool burden within the righthemicolon. The left hemicolon is largely decompressed, limiting evaluation. PERITONEUM: There is no free intraperitoneal air. There is no freefluid. No mesenteric lymphadenopathy. RETROPERITONEUM: No retroperitoneal mass or adenopathy. REPRODUCTIVE: No significant abnormality. VASCULATURE ABDOMEN: Abdominal aorta is atherosclerotic, withoutaneurysm or dissection. There is lumbar spondylosis and degenerative disc disease.This leads to central canal stenosis and neural foraminal narrowing whichappears moderate to severe at the L 4 -5 level. This can be further evaluatedwith MRI. There is mild osteoarthritis of the hips. No acute osseousabnormality. MUSCULOSKELETAL ABDOMEN PELVIS: No acute finding. OTHER: No significant abnormality. IMPRESSION: Mild thickening of the mid and distal esophagus with small hiatalhernia.. Consider reflux or esophagitis. This can be further evaluated withendoscopy. Mild prominence of gastric wall is likely due to decompression thoughcould also be evaluated with endoscopy if warranted clinically. No consolidation, effusion or pneumothorax. No bowel obstruction, free air or free fluid. Mild increased stool burden within the right hemicolon. Lumbar spondylosis and degenerative disc disease causing what appears sujata moderate to severe stenosis at the L4-5 level. This can be furtherevaluated with MRI. Additional findings as above. THIS IS AN ELECTRONICALLY VERIFIED FINAL REPORT 12/09/2024 10:05 AM - Electronically signed by Ginny Yuen M.D. TW T: Report ID: [id number] Reading Location: [id number] Estephanie GERMAN IMG CT PROCEDURES Final Resul t * XR Chest 1 Vw Portable (if patient condition/safety warrant portable) (12/09/2024 7:13 AM HOSPITALITY [facility]OST) Anatomical Region Laterality Modality Body, Chest N/A Computed Radiogr aphy 12/09/2024 7:19 AM HOSPITALITY [facility]OST Narrative 12/09/2024 7:19 AM [facility]OSPITAL[facility]OST EXAM DESCRIPTION: XR CHEST 1 VIEW REASON FOR STUDY: chest pain Pt states I woke up from acid reflux, it felt like it was burning the back of my throat. I usually take tums for my acid reflux. My throat just feels sore now. I've also had this pain in my left side of my stomach for a few days. Pt reports epigastric pain this am, denies SOB, reports hx of GERD. TECHNIQUE: Single-view COMPARISON: 11/22/2024 FINDINGS: Central vascularity have normal caliber. Aortic arch well-defined on the left. Lungs are well expanded without consolidation, effusion or pneumothorax. Bony hypertrophic changes obscures the apices. Granulomatous calcifications hilar regions. IMPRESSION: No acute findings. THIS IS AN ELECTRONICALLY VERIFIED FINAL REPORT 12/09/2024 7:19 AM - Electronically signed by Lorenzo Maria M.D. RB T: Report ID: [id number] Reading Location: [id number] Procedure Note Lorenzo Maria MD - 12/09/2024 EXAM DESCRIPTION: XR CHEST 1 VIEW REASON FOR STUDY: chest pain Pt states I woke up from acid reflux, it felt like it was burning theback of my throat. I usually take tums for my acid reflux. My throat just feelssore now. I've also had this pain in my left side of my stomach for a fewdays. Pt reports epigastric pain this am, denies SOB, reports hx of GERD. TECHNIQUE: Single-view COMPARISON: 11/22/2024 FINDINGS: Central vascularity have normal caliber. Aortic arch well-defined on theleft. Lungs are well expanded without consolidation, effusion or pneumothorax. Bony hypertrophic changes obscures the apices. Granulomatouscalcifications hilar regions. IMPRESSION: No acute findings. THIS IS AN ELECTRONICALLY VERIFIED FINAL REPORT 12/09/2024 7:19 AM - Electronically signed by Lorenzo Maria M.D. RB T: Report ID: [id number] Reading Location: [id number] Estephanie GERMAN IMG XR PROCEDURES Final Resul t * Troponin T high-sensitivity series (baseline, 2hr, 4hr, 6hr) (12/09/2024 6:53 AM HOSPITAL[facility]OST) Trop T hs 10 <=14 ng/L Comment: Interpretive Data For further hscTnT resources including the diagnostic algorithm and an aid in interpretation, copy and paste this link: [email or web address].testcatalog.org/[email or web address] Current Interpretive Data last revised 2020. Blood 12/09/2024 6:53 AM HOSPITAL[facility]OST 12/09/2024 6:56 AM HOSPITAL[facility]OST Estephanie GERMAN LAB BLOOD ORDERABLES Final Re sult [facility] [address] [facility] Department [place] [address] * Influenza A/B, RSV, and COVID-19 PCR Nasopharyngeal (12/09/2024 6:53 AM HOSPITALITY HOST) [facility] COVID-19 RNA Negative Negative Influenza A RNA Negative Negative [facility] Influenza B RNA Negative Negative [facility] RSV RNA Negative Negative [facility] Comment: Interpretive data: Testing performed by [facility]. This test is performed using the [employer] Xpert Xpress CoV-2/Flu/RSV plus assay. This is a multiplex, real-time reverse transcriptase PCR assay intended for the qualitative detection of nucleic acid from SARS-CoV-2, influenza A, influenza B, and respiratory syncytial virus. This assay has been cleared by the [place] Food and Drug administration. The performance characteristics have been verified by the [facility]. Results must be considered in the clinical context, and a negative result does not rule out infection. Interpretive Data last revised 2023 Nasopharyngeal 12/09/2024 6: 53 AM [facility]PITAL[facility]OST 12/09/2024 6:56 AM H[facility]ITAL[facility]OST Narrative [facility] - 12/09/2024 7:39 AM HOSPITALITY HOST Is the Patient experiencing symptoms consistent with COVID?->Unknown Estephanie GERMAN LAB MICROBIOLOGY - GENERAL OR DERABLES Final Result Performing Organization Address [facility] Co de Phone Number [id number] [address] * Streptococcus Group A PCR Throat (12/09/2024 6:53 AM HOSPITALITY HOST) Strep A DNA Not Detected Not Detected Comment: This test is performed using the [employer] Xpert Group A Streptococcal Assay. This is a qualitative, real-time PCR assay that detects Group A Strep using throat specimens from patients suspected of having streptococcal pharyngitis. This assay does not detect other beta-hemolytic streptococci including Group C or Group G. Group C and G have been associated with pharyngitis and, occasionally, acute nephritis but do not cause rheumatic fever. If suspected, order Throat Culture, Routine. This assay has been cleared by the US Food and Drug Administration, and its performance characteristics have been verified by the performing laboratory. Throat 12/09/2024 6:53 AM HOSPITALITY [facility]OST 12/09/2024 6:56 AM HOSPITALITY HOST Estephanie GERMAN LAB MICROBIOLOGY - GENERAL OR DERABLES Final Result Performing Organization Address [facility] de Phone Number [address] [address] * eGFR (12/09/2024 6:53 AM HOSPITALITY HOST) Pathologist [facility] eGFR 86 >=60 mL/min/1. 73 m2 Comment: Interpretive Data Reference Interval Normal >/= 90 mL/min/1.73m2 Mildly decreased* 60 - 89 mL/min/1.73m2 Mildly to moderately decreased 45 - 59 mL/min/1.73m2 Moderately to severely decreased 30 - 44 mL/min/1.73m2 Severely decreased 15 - 29 mL/min/1.73m2 Kidney Failure < 15 mL/min/1.73m2 *Relative to young adult level Estimated glomerular filtration rate is determined by the 2020 CKD-EPI equation recommended by the National Kidney Foundation (A Unifying Approach to GFR Estimation: Recommendations of the NKF-ASK Task Force on Reassessing the Inclusion of Race in Diagnosing Kidney Disease, JASN 2020). The CKD-EPI equation should not be used for patients with unstable renal function and has not been validated in children and those over 70. Current interpretive data was last reviewed 2021. Blood 12/09/2024 6:53 AM HOSPITALITY HOST 12/09/2024 6:56 AM HOSPITALITY HOST us Estephanie GERMAN LAB BLOOD ORDERABLES Final Re sult [facility] [address] [facility] Department [place] [address] * Differential, auto (12/09/2024 6:53 AM HOSPITALITY HOST) Neutrophil abs 2.4 1.5 - 6.5 K/cumm Imm gran abs 0.0 0.0 - 0.1 K/cumm [facility] Lymphocyte abs 3.3 0.8 - 3.3 K/cumm [facility] Monocyte abs 0.4 0.2 - 0.8 K/cumm [facility] Eosinophil abs 0.1 0.0 - 0.5 K/cumm [facility] Basophil abs 0.0 0.0 - 0.1 K/cumm [facility] Neutrophil pct 38.8 % [facility] Comment: Interpretive Data Percent cell count reference ranges are not reported, since discordance with absolute values may lead to misinterpretation of CBC data. Current Interpretive Data was last revised on 2018. Imm gran pct 0.2 % [facility] Comment: Interpretive Data Percent cell count reference ranges are not reported, since discordance with absolute values may lead to misinterpretation of CBC data. Current Interpretive Data was last revised on 2018. Lymphocyte pct 51.9 % [facility] Comment: Interpretive Data Percent cell count reference ranges are not reported, since discordance with absolute values may lead to misinterpretation of CBC data. Current Interpretive Data was last revised on 2018. Monocyte pct 6.9 % [facility] Comment: Interpretive Data Percent cell count reference ranges are not reported, since discordance with absolute values may lead to misinterpretation of CBC data. Current Interpretive Data was last revised on 2018. Eosinophil pct 1.6 % [facility] Comment: Interpretive Data Percent cell count reference ranges are not reported, since discordance with absolute values may lead to misinterpretation of CBC data. Current Interpretive Data was last revised on 2018. Basophil pct 0.6 % [facility] Comment: Interpretive Data Percent cell count reference ranges are not reported, since discordance with absolute values may lead to misinterpretation of CBC data. Current Interpretive Data was last revised on 2018. Blood 12/09/2024 6:53 AM HOSPITALITY HOST 12/09/2024 6:56 AM HOSPITALITY HOST us Estephanie GERMAN LAB BLOOD ORDERABLES Final Re sult [place] [id number] [facility] Department [place] [address] * (ABNORMAL) CBC with auto differential (12/09/2024 6:53 AM HOSPITALITY HOST) WBC 6.3 3.8 - 9.9 K/cumm Hgb 14.7 11.9 - 15.5 g/dL [facility] Hct 45.9(H) 35.6 - 45.5 % [facility] Plt 200 150 - 400 K/cumm [facility] MPV 9.5 9.1 - 12.[address] [facility] RBC 5.12 3.90 - 5.20 M/cumm [facility] MCV 89.6 81.3 - 96.[address] [facility] MCH 28.7 27.1 - 33.[address] [facility] MCHC 32.0(L) 32.3 - 35.7 g/dL [facility] RDW CV 13.5 11.1 - 14.9 % [facility] RDW SD 44.4 35.7 - 48.[address] [facility] NRBC abs 0.00 0.00 - 0.01 K/cumm [facility] Blood Venous blood specimen / Unknown 12/09/2024 6:53 AM HOSPITALITY HOST 12/09/2024 6:56 AM HOSPITALITY HOST Etsephanie Israel [place] LAB BLOOD ORDERABLES Final Re sult Performing Organization Address [facility] Co de Phone Number [address] [address] * Lipase (12/09/2024 6:53 AM HOSPITALITY HOST) [facility] Lipase 44 10 - 99 Units/L Blood 12/09/2024 6:53 AM HOSPITALITY HOST 12/09/2024 6:56 AM HOSPITALITY HOST Estephanie Jhonatan [place] LAB BLOOD ORDERABLES Final Re sult Performing Organization Address [facility] de Phone Number [address] [address] * (ABNORMAL) Comprehensive metabolic panel (12/09/2024 6:53 AM HOSPITALITY HOST) [facility] Sodium 143 135 - 145 mmol/L Potassium, pl 3.4 3.3 - 4.9 mmol/L [facility] Chloride 106 97 - 110 mmol/L [facility] CO2 27 22 - 32 mmol/L [facility] Anion gap 10 2 - 15 mmol/L [facility] BUN 7 6 - 25 mg/dL [facility] Creatinine 0.77 0.60 - 1.10 mg/dL [facility] Glucose 110 70 - 199 mg/dL [facility] Comment: Interpretive Data Fasting glucose >/= 126 mg/dl is diagnostic for diabetes. Fasting is defined as no caloric intake for at least 8 hours. Fasting glucose between 100 mg/dl to 125 mg/dl is diagnostic of prediabetes. In a patient with classic symptoms of hyperglycemia or hyperglycemic crisis, a random glucose >/= 200 mg/dl is diagnostic for diabetes. In the absence of unequivocal hyperglycemia, results should be confirmed by repeat testing. The classification and Diagnosis of Diabetes Diabetes Care 2021; 46: S19-S40. Current interpretive data was last revised 2022. Calcium 10.9(H) 8.5 - 10.3 mg/dL [facility] Bilirubin, total 0.3 0.1 - 1.2 mg/dL [facility] Protein, pl 7.3 6.5 - 8.5 g/dL [facility] Albumin 4.3 3.5 - 5.0 g/dL [facility] Alk phos 102 40 - 130 Units/L [facility] ALT 11 7 - 45 Units/L [facility] AST 24 10 - 45 Units/L [facility] Blood 12/09/2024 6:53 AM HOSPITALITY HOST 12/09/2024 6:56 AM HOSPITALITY HOST Estephanie GERMAN LAB BLOOD ORDERABLES Final Re sult [place] [address] [facility] Department [place] [address] * ECG 12 lead (12/09/2024 6:44 AM HOSPITALITY HOST) Ventricular Rate EKG/Min 65 BPM [facility] Atrial Rate 65 BPM [facility] CT-Interval (MSEC) 144 ms [facility] QRS-Interval (MSEC) 84 ms [facility] QT-Interval (MSEC) 402 ms [facility] QTc 418 ms [facility] P [place] 65 degrees [facility] R [place] 16 degrees [facility] T [place] 230 degrees [facility] Diagnosis Normal sinus rhythm T wave abnormality, consider inferior ischemia T wave abnormality, consider anterolateral ischemia Abnormal ECG Confirmed by CHELSI PEÑA M.D. ([id number]) on 12/09/2024 4:55:50 PM [facility] 12/09/2024 6:44 AM HOSPITALITY HOST 12/09/2024 4:55 PM HOSPITALITY HOST Jimy Mccallum MD ECG ORDERABLES Final Result [facility] [employer] [facility] * XR Chest PA Lateral 2 Views (11/22/2024 10:20 AM HOSPITALITY HOST) Anatomical Region Laterality Modality Body, Chest N/A Computed Radiogr aphy 11/22/2024 10:3 6 AM HOSPITALITY HOST Narrative 11/22/2024 10:40 AM HOSPITALITY HOST EXAM DESCRIPTION: XR CHEST PA LATERAL 2 VIEWS REASON FOR STUDY: cough Pt states cough, sob, n\d, intermittent fever and chills x5 days TECHNIQUE: 2 radiographic view(s) of the chest. COMPARISON: 09/14/2024 chest radiograph and chest CT FINDINGS: LUNGS: Calcified granuloma in the right mid lung. Mild opacity at the left lung base is favored to be atelectasis. No pleural effusion or pneumothorax identified. HEART/MEDIASTINUM: Mild cardiomegaly. Mediastinal contours are otherwise unremarkable. LINES/TUBES: None. BONES: No acute displaced fracture or aggressive bone lesion is seen. Multilevel degenerative disc disease noted. Visualized upper abdomen is unremarkable. IMPRESSION: Mild left basilar opacity, favored to be atelectasis. Please correlate clinically to exclude small focus of pneumonia. Mild cardiomegaly. THIS IS AN ELECTRONICALLY VERIFIED FINAL REPORT 11/22/2024 10:40 AM - Electronically signed by Chavez Berger M.D. MZ T: Report ID: [id number] Reading Location: [place] [address] Procedure Note Chavez Berger MD - 11/22/2024 EXAM DESCRIPTION: XR CHEST PA LATERAL 2 VIEWS REASON FOR STUDY: cough Pt states cough, sob, n\d, intermittent fever and chills x5 days TECHNIQUE: 2 radiographic view(s) of the chest. COMPARISON: 09/14/2024 chest radiograph and chest CT FINDINGS: LUNGS: Calcified granuloma in the right mid lung. Mild opacityat the left lung base is favored to be atelectasis. No pleural effusion or pneumothorax identified. HEART/MEDIASTINUM: Mild cardiomegaly. Mediastinal contours are otherwise unremarkable. LINES/TUBES: None. BONES: No acute displaced fracture or aggressive bone lesion is seen. Multilevel degenerative disc disease noted. Visualized upper abdomen is unremarkable. IMPRESSION: Mild left basilar opacity, favored to be atelectasis. Please correlate clinically to exclude small focus of pneumonia. Mild cardiomegaly. THIS IS AN ELECTRONICALLY VERIFIED FINAL REPORT 11/22/2024 10:40 AM - Electronically signed by Chavez Berger M.D. MZ T: Report ID: [id number] Reading Location: [id number] Estephanie GERMAN IMG XR PROCEDURES Final Resul t * (ABNORMAL) Influenza A/B, RSV, and COVID-19 PCR Nasopharyngeal (11/22/2024 10:04 AM HOSPITALITY HOST) COVID-19 RNA Positive(A) Negative Influenza A RNA Negative Negative [facility] Influenza B RNA Negative Negative [facility] RSV RNA Negative Negative [facility] Comment: Interpretive data: Testing performed by [facility]. This test is performed using the [employer] Xpert Xpress CoV-2/Flu/RSV plus assay. This is a multiplex, real-time reverse transcriptase PCR assay intended for the qualitative detection of nucleic acid from SARS-CoV-2, influenza A, influenza B, and respiratory syncytial virus. This assay has been cleared by the [place] Food and Drug administration. The performance characteristics have been verified by the [facility]. Results must be considered in the clinical context, and a negative result does not rule out infection. Interpretive Data last revised 2023 Nasopharyngeal 11/22/2024 10 :04 AM HOSPITALITY HOST 11/22/2024 10:09 AM HOSPITALITY HOST Narrative [facility] - 11/22/2024 11:00 AM HOSPITALITY HOST Is the Patient experiencing symptoms consistent with COVID?->Yes Estephanie GERMAN LAB MICROBIOLOGY - GENERAL OR DERABLES Final Result [facility] [address] [facility] Department of Laboratories [place], [place] [id number] * Streptococcus Group A PCR Throat (11/22/2024 10:04 AM HOSPITALITY HOST) Strep A DNA Not Detected Not Detected Comment: This test is performed using the [employer] Xpert Group A Streptococcal Assay. This is a qualitative, real-time PCR assay that detects Group A Strep using throat specimens from patients suspected of having streptococcal pharyngitis. This assay does not detect other beta-hemolytic streptococci including Group C or Group G. Group C and G have been associated with pharyngitis and, occasionally, acute nephritis but do not cause rheumatic fever. If suspected, order Throat Culture, Routine. This assay has been cleared by the US Food and Drug Administration, and its performance characteristics have been verified by the performing laboratory. Throat 11/22/2024 10:0 4 AM HOSPITALITY HOST 11/22/2024 10:09 AM HOSPITALITY HOST Estephanie GERMAN LAB MICROBIOLOGY - GENERAL OR DERABLES Final Result [place] [address] [facility] Department [place] [address] * Pulmonary Function Test - (11/03/2024 2:31 PM HOSPITALITY HOST) FVC POST 1.98 L 11/03/2024 2:29 PM [facility] FEV1 POST 1.47 L 11/03/2024 2:29 PM [facility] [id number] 74.33 % 11/03/2024 2:29 PM [facility] XAM65-49% POST 1.14 L/s 11/03/2024 2:29 PM [facility] PEF POST 4.83 L/s 11/03/2024 2:29 PM [facility] DLCOc SB 11.72 ml/(min*mm Hg) 11/03/2024 2:29 PM [facility] DLCO/VA PRE 3.71 ml/(min*mm Hg*L) 11/03/2024 2:29 PM [facility] VA 3.16 L 11/03/2024 2:29 PM [facility] TLC PRE 4.35 L 11/03/2024 2:29 PM [facility] VC PRE 1.93 L 11/03/2024 2:29 PM [facility] IC PRE 1.51 L 11/03/2024 2:29 PM [facility] FRC PL PRE 2.83 L 11/03/2024 2:29 PM [facility] ERV PRE 0.40 L 11/03/2024 2:29 PM [facility] RV PRE 2.42 L 11/03/2024 2:29 PM [facility] RAW PRE 4.59 cmH2O*s/L 11/03/2024 2:29 PM [facility] VTG 3.01 L 11/03/2024 2:29 PM [facility] FVC PRE 1.90 L 11/03/2024 2:29 PM [facility] FEV1 PRE 1.46 L 11/03/2024 2:29 PM [facility] [id number] 76.66 % 11/03/2024 2:29 PM [facility] CEA46-23% PRE 1.25 L/s 11/03/2024 2:29 PM [facility] PEF PRE 5.28 L/s 11/03/2024 2:29 PM [facility] Anatomical Region Laterality Modality PFT 11/03/2024 1:43 PM HOSPITALITY HOST Impressions 11/04/2024 8:14 PM HOSPITALITY HOST 1. Normal spirometry and lung volumes 2. [id number] gas trapping 3. Moderate diffusion impairment 4. During 6 minute walk test the patient ambulated 830 ft on ambient air with lowest oxygen saturation of 96% Electronically signed by Tuan Joseph MD Pulmonary & Critical Care Narrative 11/04/2024 8:14 PM HOSPITALITY HOST PULMONARY FUNCTION TESTS Yarelis Javier 63 y.o. 11/04/2024 INTERPRETATION Please see technologist's comments mentioned in attached results report. SPIROMETRY: Pre bronchodilator FEV1 is 74 % predicted, FVC is 76 % predicted, FEV1/FVC is 0.77 Bronchodilator response: No Inspection of the patient's flow-volume loops shows: Normal configuration of the inspiratory and expiratory limbs. LUNG VOLUMES: Lung volumes by body plethysmography: TLC is 91 % predicted, RV is 126 % predicted DLCO: Unadjusted for hemoglobin and carboxyhemoglobin DLCO is 54 % predicted us Kiera Sanders MD PFT ORDERABLES Final Result * eGFR (11/03/2024 1:28 PM HOSPITALITY HOST) eGFR 81 >=60 mL/min/1. 73 m2 Comment: Interpretive Data Reference Interval Normal >/= 90 mL/min/1.73m2 Mildly decreased* 60 - 89 mL/min/1.73m2 Mildly to moderately decreased 45 - 59 mL/min/1.73m2 Moderately to severely decreased 30 - 44 mL/min/1.73m2 Severely decreased 15 - 29 mL/min/1.73m2 Kidney Failure < 15 mL/min/1.73m2 *Relative to young adult level Estimated glomerular filtration rate is determined by the 2020 CKD-EPI equation recommended by the National Kidney Foundation (A Unifying Approach to GFR Estimation: Recommendations of the NKF-ASK Task Force on Reassessing the Inclusion of Race in Diagnosing Kidney Disease, JASN 2020). The CKD-EPI equation should not be used for patients with unstable renal function and has not been validated in children and those over 70. Current interpretive data was last reviewed 2021. Blood 11/03/2024 1:28 PM HOSPITALITY HOST 11/03/2024 1:46 PM HOSPITALITY HOST Adry Shay MD LAB BLOOD ORDERABLES Final Result [place] [address] [facility] Department [place] [address] * (ABNORMAL) Differential, auto (11/03/2024 1:28 PM HOSPITALITY HOST) Neutrophil abs 2.3 1.5 - 6.5 K/cumm Imm gran abs 0.0 0.0 - 0.1 K/cumm [facility] Lymphocyte abs 3.7(H) 0.8 - 3.3 K/cumm [facility] Monocyte abs 0.5 0.2 - 0.8 K/cumm [facility] Eosinophil abs 0.1 0.0 - 0.5 K/cumm [facility] Basophil abs 0.0 0.0 - 0.1 K/cumm [facility] Neutrophil pct 34.9 % [facility] Comment: Interpretive Data Percent cell count reference ranges are not reported, since discordance with absolute values may lead to misinterpretation of CBC data. Current Interpretive Data was last revised on 2018. Imm gran pct 0.2 % [facility] Comment: Interpretive Data Percent cell count reference ranges are not reported, since discordance with absolute values may lead to misinterpretation of CBC data. Current Interpretive Data was last revised on 2018. Lymphocyte pct 55.5 % [facility] Comment: Interpretive Data Percent cell count reference ranges are not reported, since discordance with absolute values may lead to misinterpretation of CBC data. Current Interpretive Data was last revised on 2018. Monocyte pct 7.4 % [facility] Comment: Interpretive Data Percent cell count reference ranges are not reported, since discordance with absolute values may lead to misinterpretation of CBC data. Current Interpretive Data was last revised on 2018. Eosinophil pct 1.4 % [facility] Comment: Interpretive Data Percent cell count reference ranges are not reported, since discordance with absolute values may lead to misinterpretation of CBC data. Current Interpretive Data was last revised on 2018. Basophil pct 0.6 % [facility] Comment: Interpretive Data Percent cell count reference ranges are not reported, since discordance with absolute values may lead to misinterpretation of CBC data. Current Interpretive Data was last revised on 2018. Blood 11/03/2024 1:28 PM [facility]OSPITAL[facility]OST 11/03/2024 1:55 PM HOSPITALITY HOST Adry Shay MD LAB BLOOD ORDERABLES Final Result [facility] [address] [facility] Department [place] [address] * CBC with auto differential (11/03/2024 1:28 PM HOSPITALITY HOST) WBC 6.7 3.8 - 9.9 K/cumm Hgb 14.7 11.9 - 15.5 g/dL [facility] Hct 45.5 35.6 - 45.5 % [facility] Plt 199 150 - 400 K/cumm [facility] MPV 9.3 9.1 - 12.[address] [facility] RBC 5.01 3.90 - 5.20 M/cumm [facility] MCV 90.8 81.3 - 96.[address] [facility] MCH 29.3 27.1 - 33.[address] [facility] MCHC 32.3 32.3 - 35.7 g/dL [facility] RDW CV 13.2 11.1 - 14.9 % [facility] RDW SD 44.2 35.7 - 48.[address] [facility] NRBC abs 0.00 0.00 - 0.01 K/cumm [facility] Blood 11/03/2024 1:28 PM HOSPITALITY HOST 11/03/2024 1:55 PM HOSPITALITY HOST Adry Shay MD LAB BLOOD ORDERABLES Final Result Performing Organization Address [facility] de Phone Number [address] [place] [address] * (ABNORMAL) Hemoglobin A1c (11/03/2024 1:28 PM HOSPITALITY HOST) Hgb A1C 6.8(H) 4.0 - 5.6 % Estimated Average Glucose 148 mg/dL [facility] Comment: The ADA recommends reporting an estimated Average Glucose (eAG) with all Hemoglobin A1c results using the equation derived from a study of 507 normal and diabetic adults. Minority populations were underrepresented and children were not included. (Diabetes Care 31:7988-4541, 2008). The eAG is not equivalent to a fasting glucose. Blood 11/03/2024 1:28 PM HOSPITALITY HOST 11/03/2024 1:46 PM HOSPITALITY HOST Adry Shay MD LAB BLOOD ORDERABLES Final Result Performing Organization Address [facility] Co de Phone Number [address] [address] * Lipid panel (11/03/2024 1:28 PM HOSPITALITY HOST) Cholesterol 142 30 - 199 mg/dL Comment: Interpretive Data Ages < or = 19 years Acceptable: <170 mg/dL Borderline high: 170-199 mg/dL High: >or= 200 mg/dL Ages > or = 20 years Desirable: <200 mg/dL Borderline high: 200-239 mg/dL High: >or= 240 mg/dL Literature References: 1. Expert Panel on Integrated Guidelines for Cardiovascular Health and Risk Reduction in Children and Adolescents. Pediatrics 2011;128:S213 2. NCEP Expert Panel. Circulation 2004;110:227 Current Interpretive Data was last revised on 2018. Triglycerides 108 <=149 mg/dL [facility] Comment: Interpretive Data Ages < or = 9 years Acceptable: <75 mg/dL Borderline high: 75-99 mg/dL High: >or= 100 mg/dL Ages 10 to 20 years Acceptable: <90 mg/dL Borderline high: 90-129 mg/dL High: >or= 130 mg/dL Ages > or = 20 years Desirable: <150 mg/dL Borderline high: 150-199 mg/dL High: 200-499 mg/dL Very high: >or= 499 mg/dL Literature References: 1. Expert Panel on Integrated Guidelines for Cardiovascular Health and Risk Reduction in Children and Adolescents. Pediatrics 2011;128:S213 2. NCEP Expert Panel. Circulation 2004;110:227 Current Interpretive Data was last revised on 2018. HDL 67 >=40 mg/dL [facility] Comment: Interpretive Data Ages < or = 19 years Acceptable: >45 mg/dL Borderline low: 40-45 mg/dL Low: <40 mg/dL Ages > or = 20 years Desirable: >or= 60 mg/dL Low: <40 mg/dL Literature References: 1. Expert Panel on Integrated Guidelines for Cardiovascular Health and Risk Reduction in Children and Adolescents. Pediatrics 2011;128:S213 2. NCEP Expert Panel. Circulation 2004;110:227 Current Interpretive Data was last revised on 2018. LDL, calculated 56 <=129 mg/dL [facility] Comment: Interpretive Data Ages < or = 19 years Acceptable: <110 mg/dL Borderline high: 110-129 mg/dL High: >or= 130 mg/dL Ages > or = 20 years Optimal: <100 mg/dL Near optimal: 100-129 mg/dL Borderline high: 130-159 mg/dL High: >160 mg/dL Calculated using the Shahid LDL-C estimating equation. This equation was implemented on 2024. Prior to this date LDL-C was estimated using the Friedewald equation. Literature References: 1. Expert Panel on Integrated Guidelines for Cardiovascular Health and Risk Reduction in Children and Adolescents. Pediatrics 2011;128:S213 2. NCEP Expert Panel. Circulation 2004;110:227 3. Shahid Muñiz et al. LACEY Cardiol. 2020 February 03;5(5):540-548. doi: 10.1001/[email or web address].2020.0013 Current Interpretive Data was last revised on 2024. Non-HDL Cholesterol 75 mg/dL [facility] Comment: Interpretive Data Ages < or = 19 years Acceptable: <120 mg/dL Borderline high: 120-144 mg/dL High: >145 mg/dL Ages > or = 20 years When triglycerides are >200 mg/dL, Non-HDL cholesterol is a secondary target of therapy with treatment goals that are 30 mg/dL greater than the LDL cholesterol target. Literature References: 1. Expert Panel on Integrated Guidelines for Cardiovascular Health and Risk Reduction in Children and Adolescents. Pediatrics 2011;128:S213 2. NCEP Expert Panel. Circulation 2004;110:227 Current Interpretive Data was last revised on 2018. Chol/HDL ratio 2 [facility] Blood 11/03/2024 1:28 PM HOSPITALITY HOST 11/03/2024 1:46 PM HOSPITALITY HOST Narrative [facility] - 11/03/2024 2:22 PM HOSPITALITY HOST Has the patient been fasting for 8 hours or more?->Yes Adry Shay MD LAB BLOOD ORDERABLES Final Result [place] [id number] [facility] Department [place] [address] * (ABNORMAL) Comprehensive metabolic panel (11/03/2024 1:28 PM HOSPITALITY HOST) Sodium 142 135 - 145 mmol/L Potassium, pl 3.2(L) 3.3 - 4.9 mmol/L [facility] Chloride 106 97 - 110 mmol/L [facility] CO2 25 22 - 32 mmol/L [facility] Anion gap 11 2 - 15 mmol/L [facility] BUN 7 6 - 25 mg/dL [facility] Creatinine 0.81 0.60 - 1.10 mg/dL [facility] Glucose 119 70 - 199 mg/dL [facility] Comment: Interpretive Data Fasting glucose >/= 126 mg/dl is diagnostic for diabetes. Fasting is defined as no caloric intake for at least 8 hours. Fasting glucose between 100 mg/dl to 125 mg/dl is diagnostic of prediabetes. In a patient with classic symptoms of hyperglycemia or hyperglycemic crisis, a random glucose >/= 200 mg/dl is diagnostic for diabetes. In the absence of unequivocal hyperglycemia, results should be confirmed by repeat testing. The classification and Diagnosis of Diabetes Diabetes Care 2021; 46: S19-S40. Current interpretive data was last revised 2022. Calcium 10.4(H) 8.5 - 10.3 mg/dL [facility] Bilirubin, total 0.2 0.1 - 1.2 mg/dL [facility] Protein, pl 7.2 6.5 - 8.5 g/dL [facility] Albumin 4.2 3.5 - 5.0 g/dL [facility] Alk phos 99 40 - 130 Units/L [facility] ALT <5(L) 7 - 45 Units/L [facility] AST 20 10 - 45 Units/L [facility] Blood 11/03/2024 1:28 PM HOSPITALITY HOST 11/03/2024 1:46 PM HOSPITALITY HOST Adry Shay MD LAB BLOOD ORDERABLES Final Result [facility] [address] [facility] Department [place] [address] * PPD Test (11/01/2024 1:00 PM HOSPITALITY HOST) TB Skin Test Negative Negative Induration 0 mm Other 11/01/2024 1:00 PM HOSPITALITY HOST Adry Shay MD POINT OF CARE TEST ORDERABL ES Final Result * CT Lung Cancer Screening (04/13/2024 1:04 PM CDT) Anatomical Region Laterality Modality Chest N/A Computed Tomogra phy 04/14/2024 11:0 0 AM CDT Narrative 04/14/2024 11:05 AM CDT EXAM DESCRIPTION: CT LUNG CANCER SCREENING REASON FOR STUDY: Screening CT of the chest in a former smoker with a 92 pack year smoking history. Additional history: The patient stopped smoking 2 years ago.. TECHNIQUE: Low dose CT scan of the chest was performed without intravenous contrast using helical scanning technique. The exam extends from the lung apices through the lung bases. Automatic exposure control was used as a dose optimization technique. NOTE: This study was performed for the specific purposes of lung cancer screening and is not an alternative to diagnostic chest CT. RADIATION DOSE: CT dose index volume (CTDIvol) = 1.53 mGy COMPARISON: CT chest 04/12/2023 FINDINGS: SMOKING RELATED LUNG DISEASE: Minimal upper lobe predominant pulmonary emphysema. LUNG NODULES: No suspicious lung nodules identified. CORONARY ARTERY CALCIFICATION: Severe coronary artery calcifications. OTHER: A calcified lung granulomas noted in the right lower lobe. No focal consolidation, pneumothorax, or pleural effusion. The central airways are clear. No mediastinal mass. No enlarged thoracic lymph nodes. Calcified mediastinal and hilar nodes are consistent with prior granulomatous disease. The heart is normal in size. No pericardial effusion. Mild atherosclerotic calcifications of the thoracic aorta. No thoracic aortic aneurysm. No acute fractures or suspicious osseous lesions. The visualized upper abdomen is normal. IMPRESSION: No suspicious lung nodules. Mild pulmonary emphysema. Severe coronary artery calcifications. Lung-RADS category 1S: Negative. Finding other than a pulmonary nodule which is potentially clinically significant. Recommendation: Low dose Screening CT of chest in 12 months. THIS IS AN ELECTRONICALLY VERIFIED FINAL REPORT 04/14/2024 11:05 AM - Electronically signed by Jimy Vargas M.D. KR T: Report ID: [id number] Reading Location: [place] [address] Procedure Note Jimy Vargas MD - 04/14/2024 EXAM DESCRIPTION: CT LUNG CANCER SCREENING REASON FOR STUDY: Screening CT of the chest in a former smoker with a92 pack year smoking history. Additional history: The patient stopped smoking2 years ago.. TECHNIQUE: Low dose CT scan of the chest was performed without intravenous contrast using helical scanning technique. The exam extends from the lung apices through the lung bases. Automatic exposure control was used as adose optimization technique. NOTE: This study was performed for the specific purposes of lung cancer screening and is not an alternative to diagnostic chest CT. RADIATION DOSE: CT dose index volume (CTDIvol) = 1.53 mGy COMPARISON: CT chest 04/12/2023 FINDINGS: SMOKING RELATED LUNG DISEASE: Minimal upper lobe predominant pulmonary emphysema. LUNG NODULES: No suspicious lung nodules identified. CORONARY ARTERY CALCIFICATION: Severe coronary artery calcifications. OTHER: A calcified lung granulomas noted in the right lower lobe. Nofocal consolidation, pneumothorax, or pleural effusion. The central airways are clear. No mediastinal mass. No enlarged thoracic lymph nodes. Calcified mediastinal and hilar nodes are consistent with prior granulomatousdisease. The heart is normal in size. No pericardial effusion. Mildatherosclerotic calcifications of the thoracic aorta. No thoracic aortic aneurysm. Noacute fractures or suspicious osseous lesions. The visualized upper abdomen is normal. IMPRESSION: No suspicious lung nodules. Mild pulmonary emphysema. Severe coronary artery calcifications. Lung-RADS category 1S: Negative. Finding other than a pulmonary nodulewhich is potentially clinically significant. Recommendation: Low dose Screening CT of chest in 12 months. THIS IS AN ELECTRONICALLY VERIFIED FINAL REPORT 04/14/2024 11:05 AM - Electronically signed by Jimy Vargas M.D. KR T: Report ID: [id number] Reading Location: [id number] Kiera Sanders MD IMG CT PROCEDURES Final Resul t * Colonoscopy (03/17/2024 2:28 PM CDT) Anatomical Region Laterality Modality Other [facility] Provider ENDOSCOPY PROCEDURES Gail l Result * Screening Mammogram Bilateral W Dariusz (12/30/2023 1:35 PM CDT) Anatomical Region Laterality Modality Breast Bilateral Mammography Impressions 12/30/2023 3:06 PM CDT BI-RADS ATLAS category (overall): 1 - Negative There is no mammographic evidence of malignancy. A 1 year screening mammogram is recommended. The patient has been or will be contacted. We recommend annual screening mammography for women at average risk of breast cancer beginning at age 40, based on guidelines of the [employer] (ACR Practice Parameter for the Performance of Screening and Diagnostic Mammography) and [employer]. For women with and elevated risk of breast cancer, please refer to the ACR Practice Parameter for specific screening recommendations. The patient will be entered into a reminder system with a target due date of 1 year for her next screening exam. Narrative 12/30/2023 3:06 PM CDT Screening Mammogram Bilateral W Dariusz: 12/30/23 The study was acquired using full field digital technology and interpreted from soft copy. 2D digital mammographic views, as well as 3D digital tomosynthesis were performed in the CC and MLO projections. CLINICAL: Breast cancer screening by mammogram. No relevant medical history has been documented for this patient. No known family history of breast cancer. COMPARISONS: 10/17/2022 Screening Mammogram Bilateral W Dariusz 02/22/2021 Screening Mammogram Bilateral W Dariusz BREAST TISSUE: The breasts are almost entirely fatty. FINDINGS: No suspicious masses, suspicious calcifications, or other suspicious findings are seen within either breast. There has been no suspicious change. Adry Shay MD IMG MAMMO PROCEDURES Final Result * Pap and High Risk HPV and Genotyping (Cytology Component) (08/11/2023 11:56 AM HOSPITALITY HOST) Thin prep (Pap test) 08/11/2023 11:56 AM HOSPITALITY HOST 08/12/2023 11:56 AM HOSPITALITY HOST Narrative PATHOLOGY [facility] - 08/18/2023 10:[address] [facility] Department of Pathology [address] [place] [address] Final Report with Addendum Note to Patients: This report may contain a detailed description of human tissue sent by a health care provider to the laboratory for pathologic evaluation. The content of this report is essential for diagnosis and may provide important critical findings. This information may be unfamiliar to patients to review without a medical professional present. It is advised that the patient review this report in the presence of a health care provider who can answer questions and explain the details. Patient Name: YARELIS JAVIER Address: [address] [place] [address] Gender: F : 1960 (Age: 62) Service: Location: [facility] : [id number] [facility] #: [id number] Patient Type: [facility] SPECIMEN Taken: 08/11/2023 Received: 08/12/2023 Accessioned:: 08/12/2023 Reported: 08/18/2023 Physician(s): Mai Casas NP [facility] Diagnosis: SOURCE OF SPECIMEN SCREENING THIN PREP IMAGED PAP w/ HPV: STATEMENT OF ADEQUACY - Specimen satisfactory for interpretation; endocervical/transformation zone component absent or insufficient GENERAL CATEGORIZATION: - Negative for intraepithelial lesion or malignancy MIREYA Kwong(ASCP)MIREYA Goode(ASCP) Report Electronically Reviewed and Signed Out By MIREYA Goode(ASCP) 08/18/2023 10:04:14Addenda: HPV Test Interpretation (Normal-Negative for High Risk HPV) HPV HR 16 vaginal- Negative HPV HR 18 vaginal- Negative HPV HR non 16/18 vaginal- Negative Comment: The following High Risk HPV types were not detected: 31, 33, 35, 39, 45, 51, 52, 56, 58, 59, 66, and 68 ADDITIONAL INFORMATION Testing was performed using the dinah HPV assay ([employer] This test has been modified from the digital program manager's instructions. Its performance characteristics were determined by [facility] in a manner consistent with CLIA requirements. This test has not been cleared or approved by the U.S. Food and Drug Administration. Test Performed by: [place] [address] Rate Marker: Lokesh Christianson M.D. Ph.D.; CLIA# [id number] MIREYA Kwong(ASCP)Report Electronically Reviewed and Signed Out By RAFFAELE KwongASCP) 08/15/2023 14:58:55 Specimen(s) Received: A: SCREENING THIN PREP IMAGED PAP w/ HPV Clinical History: Last Menstrual Period: >10 years Menstrual History: Supra-Cervical Hysterectomy Previous Negative Pap Contraceptive History: No The Pap test is a screening test used to aid in the detection of cervical cancer and its precursors. It should not be the sole means by which malignant and premalignant lesions are diagnosed. Both false negative and false positive results may occur. It also has poor sensitivity for the detection of endometrial lesions and should not be used to evaluate suspected endometrial abnormalities. For these reasons it is most important to obtain Pap tests at regular intervals. The performance characteristics of some immunohistochemical stains, fluorescence in-situ hybridization tests and immunophenotyping by flow cytometry cited in this report (if any) were determined by the Surgical Pathology Department at [facility] as part of an ongoing manager quality compliance program and in compliance with federally mandated regulations drawn from the Clinical Laboratory Improvement Act of 1988 (CLIA '88). Some of these tests rely on the use of analyte specific reagents and are subject to specific labeling requirements by the US Food and Drug Administration. Such diagnostic tests may only be performed in a facility that is certified by the Department of Health and Human Services as a high complexity laboratory under CLIA '88. The FDA has determined that such clearance or approval is not necessary. This test is used for clinical purposes. It should not be regarded as investigational or for research. Nevertheless, federal rules concerning the medical use of analyte specific reagents require that the following disclaimer be attached to the report: This test was developed and its performance characteristics determined by the Surgical Pathology Department [facility]. It has not been cleared or approved by the U. S. Food and Drug Administration. Mai Casas NP LAB CYTOLOGY ORDERABLES Final Result PATHOLOGY [facility] * DIABETES EYE EXAM (07/03/2023) Impressions Jensen Bradford - 07/03/2023 No Diabetic Retiopathy Historical Provider HEALTH MAINTENANCE Final Result * Hepatitis C antibody (05/21/2023 4:28 PM CDT) Hep C Ab Nonreactive Nonreactive [facility] Comment: Interpretive Data Nonreactive: Antibodies to HCV not detected. Does NOT exclude the possibility of recent exposure to HCV. Equivocal: Equivocal for HCV antibodies. Supplemental molecular testing will be automatically performed to determine infection status in accordance with current CDC screening recommendations. Reactive: Positive for HCV antibodies. This may represent current or past HCV infection. Supplemental molecular testing will be automatically performed to determine current infection status in accordance with current CDC screening recommendations. Interpretive data was last revised on 2019. Blood 05/21/2023 4:28 PM CDT 05/21/2023 5:14 PM CDT Adry Shay MD LAB MICROBIOLOGY - GENERAL ORDERABLES Final Result Performing Organization Address [facility] de Phone Number [facility] [address] [address] * Albumin Creatinine Ratio, Urine (05/21/2023 4:23 PM CDT) Albumin Ur 38.8 mg/L [facility] Comment: Interpretive Data No reference range established. Current interpretive data was last revised 2019. Creatinine Ur 393.0 mg/dL [facility] Comment: Interpretive Data No reference range established. Current interpretive data was last revised 2019. Albumin Creatinine Ratio, Ur 10 1 - 29 mg/g [facility] Urine 05/21/2023 4:23 PM CDT 05/21/2023 4:42 PM CDT Adry Shay MD LAB URINE ORDERABLES Final Result Performing Organization Address [facility] de Phone Number [facility] [address] [address] from Last 3 Months or Most Recently Relevant to Health Maintenance Additional Health Concerns Infection Onset Date Last Indicated COVID: Recovered Comment:Added based on recent COVID infection. 12/02/2024 025 Insurance [facility] MEDICARE IDPA MEDICARE [facility] Advance Directives For more information, please contact: [phone] * Full Code (Latest Code Status on File) Date Activated Date Inactivated Comments 04/12/2023 12:57 PM 04/14/2023 9:33 PM * Full Code Date Activated Date Inactivated Comments 08/16/2021 1:02 PM 08/16/2021 7:27 PM * Full Code Date Activated Date Inactivated Comments 05/09/2021 1:52 PM 05/09/2021 7:11 PM * Full Code Date Activated Date Inactivated Comments 03/14/2021 4:50 PM 03/16/2021 3:17 PM Care Teams Gis Consultant Relationship Specialty Start Date End Date Adry Shay MD [address] [facility] [place] [address] PCP - General Internal Medicine 10/02/20 Rossana Nayak NP 12/09/19 Kenroy Sheikh MD [facility] [facility] [address] Senior It Auditor Cardiology 02/23/20 Jerson Shoemaker, RESIDENCE SUPERVISOR Speech Language Pathologist Speech Therapy 09/12/22 Kiera Sanders MD [address] [facility] [address] [facility] [place] [address] Consulting Physician Pulmonary Disease 09/21/24
--- OUTSIDE RECORDS SUMMARY | 2025-01-16 16:39 | XMS_ITS | Clinical Summary ---
Author Organization [facility] Address [address] [place] [address] Care Team Providers Care Geophysics Teacher Name Role Phone Rossana Nayak KATARZYNA-OPERATIONS TECH Primary Care Provider Source Comments [facility],non-owned Affiliates and Associated Physician Practices is amultiple site organization consisting of ambulatory clinics and hospital sitesin [place], [place], [place] and [place]. This disclosure is being madepursuant to the Care Everywhere program and may not contain all information available regarding this patient. Last updated 18.[facility] Allergies No known active allergies Medications * Be aware that medications may not be up to date on this document. Alwaysverify current medications with the patient. amLODIPine (NORVASC) 10 MG tablet Take 10 mg by mouth DAILY. 7 Active methocarbamol (ROBAXIN) 750 MG tablet 7 Active losartan (COZAAR) 25 MG tablet Take by mouth. 7 Active cyclobenzaprine (FLEXERIL) 10 MG tablet 7 Active naproxen (NAPROSYN) 500 MG tablet Take 1 tablet by mouth 2 times daily 30 tablet 1 0 Active diclofenac sodium (VOLTAREN) 1 % gel Apply 2 (two) g to affected area 4 times daily 100 g 1 1 Active gabapentin (NEURONTIN) 100 MG capsule Take 1 (one) capsule by mouth at bedtime 30 capsule 1 1 Active lidocaine (LIDODERM) 5 % patchIndications: Lumbar stenosis with neurogenic claudication Apply 1 (one) patch to skin once daily as needed Apply to low back once daily, as needed. 5 patch 1 2 Active Social History Tobacco Use Types Packs/Day Years Used Date Smoking Tobacco: Every Day Cigarettes Smokeless Tobacco: Never Comments Unknown Sex and Gender Information Value Date Recorded Sex Assigned at Not on file Legal Sex Female 5:14 PM CLINICAL INFORMATICS SPEC Gender Identity Not on file Sexual Orientation Not on file Last Filed Vital Signs Vital Sign Reading Time Taken Comments Blood Pressure 156/94 01/16/2022 9:30 PM CDT Pulse 58 01/16/2022 9:23 PM CDT Temperature 36.7 C (98 F) 01/16/2022 9:23 PM CDT Respiratory Rate 14 01/16/2022 9:23 PM CDT Oxygen Saturation 98% 01/16/2022 9:30 PM CDT Inhaled Oxygen Concentration - - Weight 78 kg (172 lb) 01/02/2022 2:19 PM CDT Height 160 cm (5' 3 ) 11/26/2019 9:07 AM CLINICAL INFORMATICS SPEC Body Mass Index 30.47 11/26/2019 9:07 AM CLINICAL INFORMATICS SPEC Plan of Treatment Health Maintenance Due Date Last Done Comments BONE DENSITY TESTING 1960 COLOGUARD (AGES 45-75) - COL ON CA SCREENING [address] COLONOGRAPHY - COLON CA SCREENING 1960 FIT - COLON CA SCREENING 1959 FLEX SIG - COLON CA SCREENING 1960 MAMMOGRAM 1959 PAP SMEAR 1959 HIV SCREENING 12/17/1974 HEPATITIS C SCREENING 12/13/1977 DTAP/TDAP/TD VACCINES (1 - Tdap) 12/17/1978 PNEUMOCOCCAL VACCINE 50+ (1 of 2 - PCV) 12/17/1978 PNEUMOCOCCAL VACCINE (1 of 2 - PCV) 12/17/1978 ZOSTER VACCINE (1 of 2) 12/17/2009 COVID-19 VACCINE (3 - 2023-2 5 season) 2024 06/15/2021, 05/15/2021 DEPRESSION SCREENING 10/06/2024 INFLUENZA VACCINE (Season Ended) 2025 09/21/2021 LIPID TESTING 01/10/2027 01/10/2022 COLONOSCOPY - COLON CA SCREENING 11/24/2030 11/24/2020 Colorectal Cancer Screening 11/24/2030 Respiratory Syncytial Virus (RSV) Vaccine Pt: or over 60 yrs (1 - 1-dose 75+ series) 12/17/2034 HEPATITIS B VACCINE Aged Out No longe r eligible based on patient's age to complete this topic HIB VACCINE Aged Out No longer eligi ble based on patient's age to complete this topic HPV VACCINE Aged Out No longer eligi ble based on patient's age to complete this topic MENINGOCOCCAL (Group B) VACCINE SHARED DECISION-MAKING Aged Out No longer eligible based on patient's age to complete this topic MENINGOCOCCAL GROUPS A/C/Y/W VACCINE Aged Out No longer eligible b ased on patient's age to complete this topic Insurance [facility] Care Teams Geophysics Teacher Relationship Specialty Start Date End Date Rossana Nayak APRN-JERI [address] [place] [phone] PCP - General 03/05/17
--- OUTSIDE RECORDS SUMMARY | 2025-01-16 16:39 | XMS_ITS | Encounter Summary ---
Author Organization [facility] Address [address] [place] [address] Care Team Providers Care Finishing Pan Operator Name Role Phone Rossana Nayak NP Primary Care Provider [phone] Deondre Donnelly MD Unavailable [phone] Encounter Details Date Type Department Care Team (Late st Contact Info) Description 12/09/2019 Abstract [facility] at [facility], [facility] [address] [place] [address] Car [place] MA Social History Tobacco Use Types Packs/Day Years Used Date Smoking Tobacco: Every Day Cigarettes Smokeless Tobacco: Never Alcohol Use Standard Drinks/Week Comments Not Currently 0 (1 standard drink = 0.6 oz pur e alcohol) Comments No Sex and Gender Information Value Date Recorded Sex Assigned at Not on file Legal Sex Female 6:47 PM CDT Gender Identity Not on file Sexual Orientation Not on file documented as of this encounter Plan of Treatment Not on file documented as of this encounter Procedures Procedure Name Priority Date/Time Associated Diagnosis Comments CBC (OUTSIDE LAB) Routine 11/29/2019 BASIC METABOLIC PANEL Routine 11/29/2019 CBC (OUTSIDE LAB) Routine 11/02/2019 COMPREHENSIVE METABOLIC PANEL Routine 11/02/2019 documented in this encounter Results * CBC (OUTSIDE LAB) (11/29/2019) [facility] WBC 5.2 HGB 14.5 HCT 45 PLT 240 11/29/2019 us Doc [facility] Abstract LAB-OUTSIDE/ABSTRACTED Final Result * BASIC METABOLIC PANEL (11/29/2019) SODIUM S/P/B 140 POTASSIUM S/P/B 3.8 CO2 26 CHLORIDE S/P/B 101 BUN 7 CREATININE S/P/B 1.0 0.5 - 1.0 EGFR NON-AFR. AMER. 73 <=90 11/29/2019 us Doc [facility] Abstract LABORATORY Final Result * CBC (OUTSIDE LAB) (11/02/2019) WBC 5.8 HGB 14.6 HCT 45.3 PLT 267 11/02/2019 us Doc [facility] Abstract LAB-OUTSIDE/ABSTRACTED Final Result * COMPREHENSIVE METABOLIC PANEL (11/02/2019) SODIUM S/P/B 138 POTASSIUM S/P/B 3.5 CO2 26 CHLORIDE S/P/B 103 GLUCOSE 117 mg/dL CALCIUM S/P/B 9.6 BUN 7 CREATININE S/P/B 0.8 0.5 - 1.0 EGFR NON-AFR. AMER. 75 <=90 ALKALINE PHOSPHATASE S/P/B 72 ALT 10 AST 13 BILIRUBIN TOTAL S/P/B 0.2 ALBUMIN S/P/B 4.3 3.5 - 5.0 TOTAL PROTEIN S/P/B 7.3 GLOBULIN 3.0 11/02/2019 us Doc [facility] Abstract LABORATORY Final Result documented in this encounter Visit Diagnoses Not on filedocumented in this encounter Care Teams Finishing Pan Operator Relationship Specialty Start Date End Date Rossana Nayak NP [address] [facility] [address] [place] [address] PCP - General 02/15/17 Deondre Donnelly MD [facility]. [address] [place] [address] [place] Sales Enablement Analyst CARDIOVASCULAR DISEASE 12/05/19 documented as of this encounter
--- OUTSIDE RECORDS SUMMARY | 2025-01-16 16:39 | XMS_ITS | Clinical Summary ---
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 Gender Identity Not on file Sexual Orientation Not on file Plan of Treatment Health Maintenance Due Date Last Done Comments Hepatitis C Virus (HCV) Screening 1960 TdaP Immunization 1960 Pap Smear 12/17/1980 Cervical Cancer Screening (CCS) 12/17/1989 HPV/Cotest 12/17/1989 Colonoscopy 12/17/2004 Colorectal Cancer Screening 12/17/2004 Cologuard 12/17/2009 Immunochemical Fecal Occult Blood 12/17/2009 Mammogram 12/17/2009 Pneumococcal Immunization (5 0+ years) (1 of 1 - PCV) 12/17/2009 Zoster Immunization (1 of 2) 12/17/2009 Influenza Immunization (#1) 2024 SARS-COV-2 Immunization (2023-25 season) 2024 Respiratory Syncytial Virus (RSV) Immunization (Adult) (1 - 1-dose 75+ series) 12/17/2034 Hepatitis B Immunization Aged Out No longer eligible based on patient's age to complete this topic Meningococcal Immunization (ACWY) Aged Out No longer eligible based on patient's age to complete this topic Pneumococcal Immunization Combined Aged Out No longer eligible based on patient's age to complete this topic Rotavirus Immunization Aged Out No lo nger eligible based on patient's age to complete this topic
--- OUTSIDE RECORDS SUMMARY | 2025-01-16 16:39 | XMS_ITS | Referral Summary ---
Author Organization [facility] (formerly [facility] Address [address] [place] [address] Care Team Providers Care Master In Chancery Name Role Phone Rossana Nayak TRACTOR DRIVER TEAMSTER Unavailable [phone] Kenroy Sheikh MD Unavailable [phone] Adry Shay MD Primary Care Provider [phone] Jerson Shoemaker Unavailable Unavailable Kiera Sanders MD Unavailable [phone] Encounters Date Type Department Care Team Description 12/10/2024 [facility] Outreach [facility] Accountable Care Organization [address] [place] [id number] Keisha Wright MA 12/09/2024 7:06 AM PLANT OPERATIONS ENGINEER - 12/09/2024 11:45 AM PLANT OPERATIONS ENGINEER Emergency [address] [address] Gastroesophageal reflux disease without esophagitis (Primary Dx) Discharge Disposition: Discharge to home or self care 11/22/2024 10:39 AM PLANT OPERATIONS ENGINEER - 11/22/2024 11:25 AM PLANT OPERATIONS ENGINEER Emergency [address] [address] COVID-19 (Primary Dx) Discharge Disposition: Discharge to home or self care 11/11/2024 10:30 AM PLANT OPERATIONS ENGINEER Office Visit [facility] Pulmonology [address] [phone] Kiera Sanders MD Chronic obstructive pulmonary disease, unspecified COPD type (HCC) (Primary Dx); Moderate persistent asthma without complication; Chronic rhinitis; Cigarette nicotine dependence without complication 11/10/2024 Telephone [facility] Internal Medicine [address] [place] [phone] Yohannes Hernandez MA 11/05/2024 Telephone [facility] Internal Medicine [address] [place] [phone] Adry Shay MD Med Refill 11/03/2024 2:30 PM PLANT OPERATIONS ENGINEER Lab [facility] Lab [address] [place] [phone] Near syncope; Type 2 diabetes mellitus with diabetic neuropathy, without long-term current use of insulin ([facility]); Mixed hyperlipidemia; Low blood potassium 11/03/2024 1:13 PM PLANT OPERATIONS ENGINEER - 11/03/2024 11:59 PM PLANT OPERATIONS ENGINEER Hospital Encounter [facility] Respiratory [address] [place] [phone] Moderate persistent asthma without complication; Chronic obstructive pulmonary disease, unspecified COPD type (HCC) Discharge Disposition: Discharge to home or self care 10/27/2024 3:45 PM PLANT OPERATIONS ENGINEER Office Visit [facility] Internal Medicine [address] [place] [phone] Adry Shay MD Chronic bilateral low back pain with left-sided sciatica (Primary Dx); Type 2 diabetes mellitus with diabetic neuropathy, without long-term current use of insulin ([facility]); BMI 24.0-24.9, adult; Screening for tuberculosis; Mixed hyperlipidemia; Simple chronic bronchitis (HCC) from Last 3 Months Allergies No known active allergies Medications budesonide-formo teroL (Symbicort) 160-4.5 mcg/actuation inhalerIndicatio ns:Moderate persistent asthma with acute exacerbation Inhale 2 puffs 2 (two) times a day Rinse mouth with water after use. Do not swallow. 10.2 g 5 05/20/20 24 Active blood glucose diagnostic (glucose blood) stripIndications :Type 2 diabetes mellitus with diabetic neuropathy, without long-term current use of insulin ([facility]) Use to check blood sugar twice a [...] neuropathy, without long-term current use of insulin ([facility]) Use to check blood sugar once a day 100 each 3 10/27/19 25 026 Active blood-glucose meter kitIndications:T ype 2 diabetes mellitus with diabetic neuropathy, without long-term current use of insulin ([facility]) Use to check blood sugar once a day 1 kit 10/27/19 25 Active lancets (Reimageuch Delica Plus Lancet) 33 gauge miscIndications: Type 2 diabetes mellitus with diabetic neuropathy, without long-term current use of insulin ([facility]) USE TO TEST BLOOD SUGAR ONCE DAILY 100 each 3 10/27/19 25 Active rosuvastatin (CRESTOR) 40 mg tablet Take 1 tablet (40 mg total) by mouth daily 90 tablet 1 10/27/19 25 Active lidocaine (LIDODERM) 5 % Place 1 patch on the skin daily Remove & discard patch within 12 hours or as directed by . 15 patch 1 10/27/19 25 Active pantoprazole [...] today and she is followed by the hair clipper power Epigastric pain 10/14/2023 Assessment & Plan (10/14/2023 1:11 PM PLANT OPERATIONS ENGINEER): Patient with chronic epigastric pain and heartburn. Will start her on Prilosec 40 mg daily and make a referral to see a government gauger for further evaluation Allergic rhinitis 09/08/2023 Left sided sciatica 09/08/2023 Assessment & Plan (09/08/2023 4:33 PM PLANT OPERATIONS ENGINEER): Patient with left side sciatica. Tylenol does [...] amlodipine. Advised to follow up with her non destructive evaluation specialist for these symptoms. Blood work was ordered. [...] weeks. Assessment & Plan (09/08/2023 4:32 PM PLANT OPERATIONS ENGINEER): Patient with headache and near-syncope. Exam is unremarkable. Will obtain CT of the head and make a referral to see a neurologist for further evaluation. Neck pain 08/13/2023 Sore throat 08/13/2023 Cervical cancer screening 08/11/2023 Encounter for well woman ifrah muñiz with routine gynecological exam 08/11/2023 Assessment & Plan (08/11/2023 5:30 PM PLANT OPERATIONS ENGINEER): Pap smear with HPV cotesting completed. Mammogram [...] 05/21/2023 Assessment & Plan (08/11/2023 5:30 PM PLANT OPERATIONS ENGINEER): UA unremarkable. Discussed MOA of Jardiance and that she will likely get used to medication. Advised her to trial medication and follow up with Dr. Shay. Dental abscess 05/21/2023 Chest pain, unspecified type 04/12/2023 Localized swelling of left foot 04/12/2023 BMI 32.0-32.9,adult 02/17/2023 Colitis 11/18/2022 Assessment & Plan (11/18/2022 4:21 PM PLANT OPERATIONS ENGINEER): Patient was diagnosed with colitis and she was treated with antibiotics. She has no GI complaints. Diabetic neuropathy, type II diabetes mellitus 0 11/18/2022 Assessment & Plan (10/27/2024 3:59 PM PLANT OPERATIONS ENGINEER): Continue current medications, discussed low carbohydrate diet, [...] exam. Assessment & Plan (10/14/2023 1:11 PM PLANT OPERATIONS ENGINEER): Hemoglobin A1c 7.3. Increase Jardiance to 25 [...] 09/06/2022 Assessment & Plan (09/06/2022 10:36 AM PLANT OPERATIONS ENGINEER): Patient with mild cellulitis of the face that is improving. She will continue Keflex. She was advised strongly to call us back if she has persistent or recurrent symptoms. Screening for lung cancer 07/02/2022 Assessment & Plan (04/13/2024 7:53 AM CDT): Advised to have annual lung scan. Followed by the hair clipper power Assessment & Plan (01/13/2024 12:10 PM CDT): Patient is followed by the hair clipper power for lung cancer screening and advised to do the test every year. Assessment & Plan (07/02/2022 11:05 AM CDT): Patient is followed by the hair clipper power for lung cancer screening and advised to do the test every year. I will order the test for her Mixed hyperlipidemia 03/01/2022 Assessment & Plan (10/27/2024 3:59 PM PLANT OPERATIONS ENGINEER): Continue Crestor and low-fat diet. Advised to [...] months. Assessment & Plan (10/14/2023 1:11 PM PLANT OPERATIONS ENGINEER): Controlled on current medications. Continue low-fat diet. Will continue to monitor . Assessment & Plan (05/21/2023 12:42 PM CDT): Controlled on current medications. Continue low-fat diet. Will continue to monitor . Assessment & Plan (02/17/2023 12:15 PM CDT): Controlled on current medications. Continue low-fat diet. Will continue to monitor . Assessment & Plan (11/18/2022 3:23 PM PLANT OPERATIONS ENGINEER): Recent lipid panel looks good. I discussed [...] symptoms Assessment & Plan (09/06/2022 10:36 AM PLANT OPERATIONS ENGINEER): Controlled on current medications. Continue low-fat diet. [...] machine Assessment & Plan (11/13/2022 2:51 PM PLANT OPERATIONS ENGINEER): Patient continue to wear her CPAP at 10 cm water pressure while sleeping. Her DME is [employer]. I did encourage the patient to increase the use of her CPAP. The patient states that she has seen an cellophane worker. The patient states she is going to pickle pumper the medication that the cellophane worker prescribed. The patient states that she did not tolerate a fullface mask. Assessment & Plan (08/07/2022 3:02 PM CDT): I did send an order over to [facility] to have the machine repaired/troubleshoot to determined functionality of the CPAP machine. Patient will continue CPAP at 10 cm water pressure. I have also ordered a full set of supplies. DME [employer] Assessment & Plan (07/29/2022 12:56 PM CDT): Patient continue to wear her CPAP at 10 cm water pressure while sleeping. DME company [employer]. The patient was educated on the need [...] specialist Assessment & Plan (10/03/2021 11:22 AM PLANT OPERATIONS ENGINEER): Due to the slightly elevated AHI and the patient stating that she is not getting enough pressure in the machine. I have turned the CPAP machine up to 10 cm water pressure. [facility] [employer]. The patient was educated on the need to continue CPAP therapy at least 4 hours a night on 70% of the nights to reach optimal benefit of therapy. Cough 09/21/2021 Assessment & Plan (09/21/2021 11:46 AM PLANT OPERATIONS ENGINEER): Patient was advised to continue Proventil inhaler p.r.n. and she can try Mucinex. If she has worsened symptoms or if she has fever or if she developed discolored mucus she will call back Dysphagia 03/14/2021 Assessment & Plan (09/21/2021 8:55 AM PLANT OPERATIONS ENGINEER): Managed by the government gauger Assessment & Plan (06/22/2021 9:50 AM CDT): Status post dilatation Assessment & Plan (03/22/2021 9:34 AM CDT): Status post esophageal dilatation with persistent symptoms. She is followed by the GI doctor and she will have manometric study Helicobacter pylori gastritis 12/06/2020 Assessment & Plan (12/06/2020 10:23 AM PLANT OPERATIONS ENGINEER): Patient was started on antibiotics and she will continue the medications and she has follow-up with the government gauger Spinal stenosis of lumbar re gion without [...] surgery. Assessment & Plan (10/14/2023 1:12 PM PLANT OPERATIONS ENGINEER): Advised to follow-up with the orthopedic doctor Assessment & Plan (05/21/2023 12:42 PM CDT): Patient is on gabapentin and followed by the orthopedic surgeon Assessment & Plan (07/02/2022 8:01 AM CDT): Patient is on gabapentin and followed by the orthopedic surgeon Assessment & Plan (03/29/2022 12:33 PM CDT): Patient takes gabapentin and followed by the corrections specialist Assessment & Plan (09/21/2021 8:56 AM PLANT OPERATIONS ENGINEER): Continue gabapentin Assessment & Plan (06/22/2021 9:50 AM CDT): Continue gabapentin Assessment & Plan (03/22/2021 8:07 AM CDT): Patient is maintained on gabapentin currently stable Assessment & Plan (12/06/2020 10:23 AM PLANT OPERATIONS ENGINEER): Asymptomatic Chronic bilateral low back pain with left-sided sciatica 11/01/2020 Assessment & Plan (10/27/2024 3:58 PM PLANT OPERATIONS ENGINEER): Patient to follow-up with the pain management. She is on lidocaine patches. Assessment & Plan (01/13/2024 12:07 PM CDT): Patient complains of chronic back pain. She was seen by orthopedic specialist and pain management. She had injections in the past. Will repeat MRI of the lumbar spine Assessment & Plan (12/21/2021 12:05 PM CDT): Patient is currently stable Assessment & Plan (12/06/2020 10:23 AM PLANT OPERATIONS ENGINEER): X-ray showed degenerative disc disease and MRI from 2017 showed spinal stenosis. The patient is currently stable Assessment & Plan (11/01/2020 10:44 AM PLANT OPERATIONS ENGINEER): Patient was started recently on gabapentin. Patient has mild intermittent chronic back pain. She does not need pain medications at this time. Hypertension, essential 08/17/2020 Assessment & Plan (10/27/2024 4:00 PM PLANT OPERATIONS ENGINEER): Blood pressure is stable without medications Assessment [...] monitor Assessment & Plan (10/14/2023 1:11 PM PLANT OPERATIONS ENGINEER): Continue current medications. Discussed low-salt diet. Discussed [...] monitor Assessment & Plan (11/18/2022 3:22 PM PLANT OPERATIONS ENGINEER): Blood pressure is well controlled. Continue low-salt [...] monitor Assessment & Plan (09/21/2021 8:56 AM PLANT OPERATIONS ENGINEER): Continue current medications. Discussed low-salt diet. Discussed [...] monitor Assessment & Plan (12/06/2020 10:22 AM PLANT OPERATIONS ENGINEER): Continue current medications. Discussed low-salt diet. Discussed exercise on regular basis. Will continue to monitor Assessment & Plan (11/01/2020 10:44 AM PLANT OPERATIONS ENGINEER): Continue amlodipine and low-salt diet Allergic rhinitis due to allergen 08/17/2020 Assessment & Plan (12/21/2021 12:05 PM CDT): Continue Flonase and I will add Claritin 10 mg daily Assessment & Plan (11/01/2020 10:44 AM PLANT OPERATIONS ENGINEER): Controlled on Claritin and Flonase GERD (gastroesophageal reflux disease) Assessment & Plan (05/14/2024 11:58 AM CDT): Patient with the chronic gastroesophageal reflux symptoms. She is on Prilosec 40 mg twice daily. She went to the ER because of burning sensation in the chest wall area. The workup was negative. She also was evaluated by ENT Few days ago. Patient was advised to follow up with her government gauger as she continues to have these symptoms on chronic basis. She was advised to avoid food that triggers the symptoms. Further recommendations per the government gauger Assessment & Plan (04/13/2024 7:48 AM CDT): Maintained on Prilosec and followed by the Gastroenterology Assessment & Plan (01/10/2022 10:52 AM CDT): Maintained on Prilosec and followed by the Gastroenterology Assessment & Plan (12/06/2020 10:22 AM PLANT OPERATIONS ENGINEER): Continue Prilosec Prediabetes 06/15/2020 Overview (05/21/2023): A1C 6.4 10/2019 Abnormal EKG 02/23/2020 Shortness of breath 02/23/2020 Assessment & Plan (01/10/2022 10:53 AM CDT): Patient went to the ER because of shortness breath and cough. The workup was essentially unremarkable. Chest x-ray was unremarkable. Blood work was okay. Patient is currently asymptomatic. She has follow-up to see hair clipper power. Discussed smoking cessation. Advised to try nicotine patches. Other chest pain 02/23/2020 Assessment & Plan (11/18/2022 4:20 PM PLANT OPERATIONS ENGINEER): Patient with atypical chest pain. Most likely it is muscular in origin. It had subsided. She is followed by non destructive evaluation specialist. Recent cardiac workup was negative. Assessment & Plan (11/01/2020 10:44 AM PLANT OPERATIONS ENGINEER): Patient has atypical chest pain. She had normal stress test in February 2020. I advised her to follow up with the non destructive evaluation specialist. She had an appointment with him recently but she did not keep it. We give her the information to call the non destructive evaluation specialist and make a follow-up. She understands the [...] 2022 Assessment & Plan (11/18/2022 3:22 PM PLANT OPERATIONS ENGINEER): She quit smoking 2 months ago. Encouraged [...] patches Assessment & Plan (09/21/2021 11:47 AM PLANT OPERATIONS ENGINEER): Discussed smoking cessation and different methods to help with that. Discussed the risks of smoking including COPD, CAD and lung cancer etc. patient does CT lung screen through the hair clipper power. Total time spent was 3 minutes. Assessment [...] minutes. Assessment & Plan (12/06/2020 10:22 AM PLANT OPERATIONS ENGINEER): Discussed smoking cessation and different methods to help with that. Discussed the risks of smoking including COPD, CAD and lung cancer etc. Total time spent was 3 minutes. Assessment & Plan (11/01/2020 10:44 AM PLANT OPERATIONS ENGINEER): Discussed smoking cessation and different methods to [...] disease) Assessment & Plan (10/27/2024 4:00 PM PLANT OPERATIONS ENGINEER): Patient is maintained on Symbicort and followed by the hair clipper power Assessment & Plan (07/07/2024 7:53 AM CDT): Patient is maintained on Symbicort and followed by the hair clipper power Resolved Problems Problem Noted Date Diagnosed Date Resolved Date Controlled type 2 diabetes mary kay tripathi without complication, without long-term current use of insulin 03/29/2022 02/16/2023 Assessment & Plan (11/18/2022 4:21 PM PLANT OPERATIONS ENGINEER): Continue low calorie diet and encouraged exercise [...] Will make a referral for sleep study Immunizations Immunization Administration Dates Next Due Influenza, Quadrivalent, Spl it, Preservative Free, Intramuscular 07/14/2023,07/02/2022,09/21/2021 Influenza, Trivalent, Preser vative Free, Intramuscular 10/27/2024 Moderna SARS-CoV-2 Monovalen t Vaccination (12+ YRS) 06/15/2021 PPD TEST 11/03/2024,10/27/2024 Pfizer SARS-CoV-2 Monovalent Vaccination (12+ Yrs) PURPLE 05/27/2022 Pneumococcal Polysaccharide PPV23 09/06/2022 Tdap 11/01/2020 ZOSTER Recombinant 02/28/2024 Social History Tobacco Use Types Packs/Day Years [...] 04/14/2023 How often do you attend chur ch or judaism services? Never 04/14/2023 Do you belong to any clubs o r organizations such as judaism groups, unions, fraternal or athletic groups, or [...] on file Legal Sex Female 12:24 AM PLANT OPERATIONS ENGINEER Gender Identity Not on file Sexual Orientation Not on file Last Filed Vital Signs Vital Sign Reading Time Taken Comments Blood Pressure 165/93 12/09/2024 11:34 AM PLANT OPERATIONS ENGINEER Pulse 63 12/09/2024 11:34 AM PLANT OPERATIONS ENGINEER Temperature 36.9 C (98.4 F) 12/09/2024 6:36 AM PLANT OPERATIONS ENGINEER Respiratory Rate 21 12/09/2024 11:34 AM PLANT OPERATIONS ENGINEER Oxygen Saturation 95% 12/09/2024 11:34 AM PLANT OPERATIONS ENGINEER Inhaled Oxygen Concentration - - Weight 73 kg (160 lb 15 oz) 12/09/2024 6:[address] Height 170 cm (5' 6.93 ) 12/09/2024 6:36 AM PLANT OPERATIONS ENGINEER Body Mass Index 25.26 12/09/2024 6:36 AM PLANT OPERATIONS ENGINEER Plan of Treatment Not on file Procedures Procedure Name Priority Date/Time Associated Diagnosis Comments TROPONIN T HIGH-SENSITIVITY 4-HR Timed 12/09/2024 10:30 AM PLANT OPERATIONS ENGINEER URINALYSIS AND REFLEX TO MICROSCOPIC AND CULTURE STAT 12/09/2024 9:57 AM PLANT OPERATIONS ENGINEER CT CHEST ABDOMEN PELVIS W CONTRAST ED 12/09/2024 9:06 AM PLANT OPERATIONS ENGINEER XR CHEST 1 VIEW ED 12/09/2024 7:13 AM PLANT OPERATIONS ENGINEER EGFR STAT 12/09/2024 6:53 AM PLANT OPERATIONS ENGINEER DIFFERENTIAL AUTO STAT 12/09/2024 6:5 3 AM PLANT OPERATIONS ENGINEER LIPASE STAT 12/09/2024 6:53 AM PLANT OPERATIONS ENGINEER TROPONIN T HIGH-SENSITIVITY SERIES (BASELINE, 2HR, 4HR, 6HR) STAT 12/09/2024 6:53 AM PLANT OPERATIONS ENGINEER COMPREHENSIVE METABOLIC PANEL STAT 12/09/2024 6:53 AM PLANT OPERATIONS ENGINEER CBC WITH AUTO DIFFERENTIAL STAT 12/09/2024 6:53 AM PLANT OPERATIONS ENGINEER INFLUENZA A/B, RSV, AND COVID-19 PCR STAT 12/09/2024 6:53 AM PLANT OPERATIONS ENGINEER STREPTOCOCCUS GROUP A PCR STAT 12/09/2024 6:53 AM PLANT OPERATIONS ENGINEER ECG 12-LEAD STAT 12/09/2024 6:44 AM PLANT OPERATIONS ENGINEER XR CHEST PA LATERAL 2 VIEWS ED 11/22/2024 10:20 AM PLANT OPERATIONS ENGINEER STREPTOCOCCUS GROUP A PCR STAT 11/22/2024 10:04 AM PLANT OPERATIONS ENGINEER INFLUENZA A/B, RSV, AND COVID-19 PCR STAT 11/22/2024 10:04 AM PLANT OPERATIONS ENGINEER PULMONARY FUNCTION TEST (PFT) Routine 11/03/2024 2:31 PM PLANT OPERATIONS ENGINEER Moderate persistent asthma without complication Chronic obstructive pulmonary disease, unspecified COPD type (HCC) EGFR Routine 11/03/2024 1:28 PM PLANT OPERATIONS ENGINEER Type 2 diabetes mellitus with diabetic neuropathy, without long-term current use of insulin (HCC) DIFFERENTIAL AUTO Routine 11/03/2024 1:2 8 PM PLANT OPERATIONS ENGINEER Near syncope COMPREHENSIVE METABOLIC PANEL Routine 11/03/2024 1:28 PM PLANT OPERATIONS ENGINEER Type 2 diabetes mellitus with diabetic neuropathy, without long-term current use of insulin (HCC) LIPID PANEL Routine 11/03/2024 1:28 PM PLANT OPERATIONS ENGINEER Type 2 diabetes mellitus with diabetic neuropathy, without long-term current use of insulin (HCC) Mixed hyperlipidemia HEMOGLOBIN A1C Routine 11/03/2024 1:28 PM PLANT OPERATIONS ENGINEER Type 2 diabetes mellitus with diabetic neuropathy, without long-term current use of insulin (HCC) CBC WITH AUTO DIFFERENTIAL Routine 11/03/2024 1:28 PM PLANT OPERATIONS ENGINEER Near syncope PPD TEST Routine 11/01/2024 1:00 PM PLANT OPERATIONS ENGINEER Encounter for PPD test CT LUNG CANCER SCREENING Schedule Routine, Read Routine (OP Routine) 04/13/2024 1:04 PM CDT Personal history of nicotine dependence COLONOSCOPY Routine 03/17/2024 2:28 PM CDT SCREENING MAMMOGRAM BILATERAL W DARIUSZ Schedule Routine, Read Routine (OP Routine) 12/30/2023 1:35 PM CDT Breast cancer screening by mammogram PAP AND HIGH RISK HPV, REFLEX TO GENOTYPING Routine 08/11/2023 11:56 AM PLANT OPERATIONS ENGINEER Cervical cancer screening HM DIABETES EYE EXAM Routine 07/03/2023 HEPATITIS C ANTIBODY Routine 05/21/2023 4:28 PM CDT Screening due ALBUMIN CREATININE RATIO, URINE Routine 05/21/2023 4:23 PM CDT Type 2 diabetes mellitus with diabetic neuropathy, without long-term current use of insulin (HCC) from Last 3 Months or Most Recently Relevant to Health Maintenance Results * Troponin T high-sensitivity 4-hour (12/09/2024 10:30 AM PLANT OPERATIONS ENGINEER) Trop T hs 13 <=14 ng/L Comment: Interpretive Data For further hscTnT resources including the diagnostic algorithm and an aid in interpretation, copy and paste this link: [email or web address].testcatalog.org/[email or web address] Current Interpretive Data last revised 2020. Trop T hs delta 3 ng/L [facility] Trop T hs interp Insignificant [facility] Blood 12/09/2024 10:3 0 AM PLANT OPERATIONS ENGINEER 12/09/2024 10:34 AM PLANT OPERATIONS ENGINEER Estephanie [facility] BLOOD ORDERABLES Final Re sult [facility] [address] [facility] Department [place] [address] * (ABNORMAL) Urinalysis reflex to microscopic and culture Urine (12/09/2024 9:57 AM PLANT OPERATIONS ENGINEER) Pathologist [facility] Color, ur Straw Yellow Clarity, ur Clear Clear [facility] Specific gravity, ur 1.038(H) 1.003 - 1.030 [facility] pH, urine 7.0 [facility] Comment: Interpretive Data U rine pH is affected by diet, medications, systemic acid-base disturbances, and renal tubular function. pH may affect urinary stone formation. For example, urine pH below 6.0 may help reduce the tendency for calcium phosphate stones and pH greater than 6.0 may reduce the tendency for uric acid stone formation. Source: [facility] Current Interpretive Data was last revised on 2017 Protein, ur ql Negative Negative [facility] Glucose, ur ql 3+(A) Negative [facility] Ketones, ur Negative Negative [facility] Bilirubin, ur Negative Negative [facility] Blood, ur Negative Negative [facility] Urobilinogen, ur <2.0 <2.0 mg/dL [facility] Nitrite, ur Negative Negative [facility] Leukocyte esterase, ur Negative Negative [facility] UA reflex comment Reflex conditions for microscopic UA and culture not met. [facility] Urine 12/09/2024 9:57 AM PLANT OPERATIONS ENGINEER 12/09/2024 10:01 AM PLANT OPERATIONS ENGINEER [facility] MICROBIOLOGY - GENERAL OR DERABLES Final Result [facility] [address] [facility] Department [place] [address] * CT Chest Abdomen Pelvis W Contrast (12/09/2024 9:06 AM PLANT OPERATIONS ENGINEER) Anatomical Region Laterality Modality Body N/A Computed Tomogra phy 12/09/2024 9:53 AM PLANT OPERATIONS ENGINEER Narrative 12/09/2024 10:05 AM PLANT OPERATIONS ENGINEER EXAM DESCRIPTION: CT CHEST ABDOMEN PELVIS W [...] Ginny Yuen M.D. TW T: Report ID: [id number] Reading Location: [id number] Procedure Note Ginny Yuen MD - 12/09/2024 [...] Ginny Yuen M.D. TW T: Report ID: [id number] Reading Location: [place] [address] PROCEDURES Final Resul t * XR Chest 1 Vw Portable (if patient condition/safety warrant portable) (12/09/2024 7:13 AM PLANT OPERATIONS ENGINEER) Anatomical Region Laterality Modality Body, Chest N/A Computed Radiogr aphy 12/09/2024 7:19 AM PLANT OPERATIONS ENGINEER Narrative 12/09/2024 7:19 AM PLANT OPERATIONS ENGINEER EXAM DESCRIPTION: XR CHEST 1 VIEW REASON [...] Lorenzo Maria M.D. RB T: Report ID: [id number] Reading Location: [id number] Procedure Note Lorenzo Maria MD - 12/09/2024 [...] Lorenzo Maria M.D. RB T: Report ID: [id number] Reading Location: [place] [address] Estephanie GERMAN IMG XR PROCEDURES Final Resul t * Troponin T high-sensitivity series (baseline, 2hr, 4hr, 6hr) (12/09/2024 6:53 AM PLANT OPERATIONS ENGINEER) Trop T hs 10 <=14 ng/L Comment: Interpretive Data For further hscTnT resources including the diagnostic algorithm and an aid in interpretation, copy and paste this link: [email or web address].testcatalog.org/show/hsTrop Current Interpretive Data last revised 2020. Blood 12/09/2024 6:53 AM PLANT OPERATIONS ENGINEER 12/09/2024 6:56 AM PLANT OPERATIONS ENGINEER Estephanie GERMAN LAB BLOOD ORDERABLES Final Re sult [facility] [address] [facility] Department [place] [address] * Influenza A/B, RSV, and COVID-19 PCR Nasopharyngeal (12/09/2024 6:53 AM PLANT OPERATIONS ENGINEER) Pathologist [facility] COVID-19 RNA Negative Negative Influenza A RNA Negative Negative [facility] Influenza B RNA Negative Negative [facility] RSV RNA Negative Negative [facility] Comment: Interpretive data: Testing performed by [facility]. This test is performed using the EDUS Xpert Xpress CoV-2/Flu/RSV plus assay. This is a multiplex, real-time reverse transcriptase PCR assay intended for the qualitative detection of nucleic acid from SARS-CoV-2, influenza A, influenza B, and respiratory syncytial virus. This assay has been cleared by the [place] Food and Drug administration. The performance characteristics have been verified by the [facility]. Results must be considered in the clinical context, and a negative result does not rule out infection. Interpretive Data last revised 2023 Nasopharyngeal 12/09/2024 6: 53 AM PLANT OPERATIONS ENGINEER 12/09/2024 6:56 AM PLANT OPERATIONS ENGINEER N[facility]ative [facility] 12/09/2024 7:39 AM PLANT OPERATIONS ENGINEER Is the Patient experiencing symptoms consistent with COVID?->Unknown [facility] Jhonatan PA LAB MICROBIOLOGY - GENERAL OR DERABLES Final Result Performing Organization Address [facility] Co de Phone Number [address] [address] * Streptococcus Group A PCR Throat (12/09/2024 6:53 AM PLANT OPERATIONS ENGINEER) Pathologist [facility] Strep A DNA Not Detected Not Detected Comment: This test is performed using the EDUS Xpert Group A Streptococcal Assay. This is [...] the performing laboratory. Throat 12/09/2024 6:53 AM PLANT OPERATIONS ENGINEER 12/09/2024 6:56 AM PLANT OPERATIONS ENGINEER [facility] Jhonatan OR LAB MICROBIOLOGY - GENERAL OR DERABLES Final Result Performing Organization Address [facility] de Phone Number [address] [address] * eGFR (12/09/2024 6:53 AM PLANT OPERATIONS ENGINEER) Pathologist [facility] eGFR 86 >=60 mL/min/1. 73 m2 Comment: [...] last reviewed 2021. Blood 12/09/2024 6:53 AM PLANT OPERATIONS ENGINEER 12/09/2024 6:56 AM PLANT OPERATIONS ENGINEER us Estephanie GERMAN LAB BLOOD ORDERABLES Final Re sult [place] [id number] [facility] Department of Laboratories [place], [place] [id number] * Differential, auto (12/09/2024 6:53 AM PLANT OPERATIONS ENGINEER) Neutrophil abs 2.4 1.5 - 6.5 K/cumm Imm gran abs 0.0 0.0 - 0.1 K/cumm [facility] Lymphocyte abs 3.3 0.8 - 3.3 K/cumm [facility] Monocyte abs 0.4 0.2 - 0.8 K/cumm [facility] Eosinophil abs 0.1 0.0 - 0.5 K/cumm [facility] Basophil abs 0.0 0.0 - 0.1 K/cumm [facility] Neutrophil pct 38.8 % [facility] Comment: Interpretive Data Percent cell count reference ranges are not reported, since discordance with absolute values may lead to misinterpretation of CBC data. Current Interpretive Data was last revised on 2018. Imm gran pct 0.2 % [facility] Comment: Interpretive Data Percent cell count reference ranges are not reported, since discordance with absolute values may lead to misinterpretation of CBC data. Current Interpretive Data was last revised on 2018. Lymphocyte pct 51.9 % [facility] Comment: Interpretive Data Percent cell count reference ranges are not reported, since discordance with absolute values may lead to misinterpretation of CBC data. Current Interpretive Data was last revised on 2018. Monocyte pct 6.9 % [facility] Comment: Interpretive Data Percent cell count reference ranges are not reported, since discordance with absolute values may lead to misinterpretation of CBC data. Current Interpretive Data was last revised on 2018. Eosinophil pct 1.6 % [facility] Comment: Interpretive Data Percent cell count reference ranges are not reported, since discordance with absolute values may lead to misinterpretation of CBC data. Current Interpretive Data was last revised on 2018. Basophil pct 0.6 % [facility] Comment: Interpretive Data Percent cell count reference ranges are not reported, since discordance with absolute values may lead to misinterpretation of CBC data. Current Interpretive Data was last revised on 2018. Blood 12/09/2024 6:53 AM PLANT OPERATIONS ENGINEER 12/09/2024 6:56 AM PLANT OPERATIONS ENGINEER us Estephanie GERMAN LAB BLOOD ORDERABLES Final Re sult [facility] [address] [facility] Department [place] [address] * (ABNORMAL) CBC with auto differential (12/09/2024 6:53 AM PLANT OPERATIONS ENGINEER) WBC 6.3 3.8 - 9.9 K/cumm Hgb 14.7 11.9 - 15.5 g/dL [facility] Hct 45.9(H) 35.6 - 45.5 % [facility] Plt 200 150 - 400 K/cumm [facility] MPV 9.5 9.1 - 12.3 fL [facility] RBC 5.12 3.90 - 5.20 M/cumm [facility] MCV 89.6 81.3 - 96.4 fL [facility] MCH 28.7 27.1 - 33.3 pg [facility] MCHC 32.0(L) 32.3 - 35.7 g/dL [facility] RDW CV 13.5 11.1 - 14.9 % [facility] RDW SD 44.4 35.7 - 48.1 fL [facility] NRBC abs 0.00 0.00 - 0.01 K/cumm [facility] Blood Venous blood specimen / Unknown 12/09/2024 6:53 AM PLANT OPERATIONS ENGINEER 12/09/2024 6:56 AM PLANT OPERATIONS ENGINEER Estephanie Avelaro PA LAB BLOOD ORDERABLES Final Re sult Performing Organization Address [facility] Co de Phone Number [address] [place] [address] * Lipase (12/09/2024 6:53 AM PLANT OPERATIONS ENGINEER) Pathologist [facility] Lipase 44 10 - 99 Units/L Blood 12/09/2024 6:53 AM PLANT OPERATIONS ENGINEER 12/09/2024 6:56 AM PLANT OPERATIONS ENGINEER Estephanie Jhonatan OR LAB BLOOD ORDERABLES Final Re sult Performing Organization Address [facility] de Phone Number [address] [address] * (ABNORMAL) Comprehensive metabolic panel (12/09/2024 6:53 AM PLANT OPERATIONS ENGINEER) [facility] Sodium 143 135 - 145 mmol/L Potassium, pl 3.4 3.3 - 4.9 mmol/L [facility] Chloride 106 97 - 110 mmol/L [facility] CO2 27 22 - 32 mmol/L [facility] Anion gap 10 2 - 15 mmol/L [facility] BUN 7 6 - 25 mg/dL [facility] Creatinine 0.77 0.60 - 1.10 mg/dL [facility] Glucose 110 70 - 199 mg/dL [facility] Comment: Interpretive Data Fasting glucose >/= [...] classification and Diagnosis of Diabetes Diabetes Care 202; 46: S19-S40. Current interpretive data was last revised 2022. Calcium 10.9(H) 8.5 - 10.3 mg/dL [facility] Bilirubin, total 0.3 0.1 - 1.2 mg/dL [facility] Protein, pl 7.3 6.5 - 8.5 g/dL [facility] Albumin 4.3 3.5 - 5.0 g/dL [facility] Alk phos 102 40 - 130 Units/L [facility] ALT 11 7 - 45 Units/L [facility] AST 24 10 - 45 Units/L [facility] Blood 12/09/2024 6:53 AM PLANT OPERATIONS ENGINEER 12/09/2024 6:56 AM PLANT OPERATIONS ENGINEER us Estephanie GERMAN LAB BLOOD ORDERABLES Final Re sult Performing Organization Address [facility] Co de Phone Number [facility] [address] [facility] Department [place] [address] * ECG 12 lead (12/09/2024 6:44 AM PLANT OPERATIONS ENGINEER) Ventricular Rate EKG/Min 65 BPM [facility] Atrial Rate 65 BPM [facility] MD-Interval (MSEC) 144 ms [facility] QRS-Interval (MSEC) 84 ms [facility] QT-Interval (MSEC) 402 ms [facility] QTc 418 ms [facility] P [place] 65 degrees [facility] R [place] 16 degrees [facility] T [place] 230 degrees [facility] Diagnosis Normal sinus rhythm T wave abnormality, consider inferior ischemia T wave abnormality, consider anterolateral ischemia Abnormal ECG Confirmed by CHELSI PEÑA M.D. ([id number]) on 12/09/2024 4:55:50 PM [facility] 12/09/2024 6:44 AM PLANT OPERATIONS ENGINEER 12/09/2024 4:55 PM PLANT OPERATIONS ENGINEER us Jimy Mccallum MD ECG ORDERABLES Final Result Performing Organization Address [facility] Co de Phone Number [facility] * XR Chest PA Lateral 2 Views (11/22/2024 10:20 AM PLANT OPERATIONS ENGINEER) Anatomical Region Laterality Modality Body, Chest N/A Computed Radiogr aphy 11/22/2024 10:3 6 AM PLANT OPERATIONS ENGINEER Narrative 11/22/2024 10:40 AM PLANT OPERATIONS ENGINEER EXAM DESCRIPTION: XR CHEST PA LATERAL 2 [...] Chavez Berger M.D. MZ T: Report ID: [id number] Reading Location: [id number] Procedure Note Chavez Berger MD - 11/22/2024 [...] Chavez Berger M.D. MZ T: Report ID: [id number] Reading Location: [id number] Estephanie GERMAN IMG XR PROCEDURES Final Resul t * (ABNORMAL) Influenza A/B, RSV, and COVID-19 PCR Nasopharyngeal (11/22/2024 10:04 AM PLANT OPERATIONS ENGINEER) Pathologist [facility] COVID-19 RNA Positive(A) Negative Influenza A RNA Negative Negative [facility] Influenza B RNA Negative Negative [facility] RSV RNA Negative Negative [facility] Comment: Interpretive data: Testing performed by [facility]. This test is performed using the EDUS Xpert Xpress CoV-2/Flu/RSV plus assay. This is a multiplex, real-time reverse transcriptase PCR assay intended for the qualitative detection of nucleic acid from SARS-CoV-2, influenza A, influenza B, and respiratory syncytial virus. This assay has been cleared by the [place] Food and Drug administration. The performance characteristics have been verified by the [facility]. Results must be considered in the clinical context, and a negative result does not rule out infection. Interpretive Data last revised 2023 Nasopharyngeal 11/22/2024 10 :04 AM PLANT OPERATIONS ENGINEER 11/22/2024 10:09 AM PLANT OPERATIONS ENGINEER Narrative [facility] - 11/22/2024 11:00 AM PLANT OPERATIONS ENGINEER Is the Patient experiencing symptoms consistent with COVID?->Yes Estephanie GERMAN LAB MICROBIOLOGY - GENERAL OR DERABLES Final Result [facility] [address] [facility] Department [place] [address] * Streptococcus Group A PCR Throat (11/22/2024 10:04 AM PLANT OPERATIONS ENGINEER) Strep A DNA Not Detected Not Detected Comment: This test is performed using the EDUS Xpert Group A Streptococcal Assay. This is [...] performing laboratory. Throat 11/22/2024 10:0 4 AM PLANT OPERATIONS ENGINEER 11/22/2024 10:09 AM PLANT OPERATIONS ENGINEER Estephanie GERMAN LAB MICROBIOLOGY - GENERAL OR DERABLES Final Result [facility] [address] [facility] Department [place] [address] * Pulmonary Function Test - (11/03/2024 2:31 PM PLANT OPERATIONS ENGINEER) FVC POST 1.98 L 11/03/2024 2:29 PM [facility] FEV1 POST 1.47 L 11/03/2024 2:29 PM [facility] [id number] 74.33 % 11/03/2024 2:29 PM [facility] KXZ88-88% POST 1.14 L/s 11/03/2024 2:29 PM [facility] PEF POST 4.83 L/s 11/03/2024 2:29 PM [facility] DLCOc SB 11.72 ml/(min*mm Hg) 11/03/2024 2:29 PM [facility] DLCO/VA PRE 3.71 ml/(min*mm Hg*L) 11/03/2024 2:29 PM [facility] VA 3.16 L 11/03/2024 2:29 PM [facility] TLC PRE 4.35 L 11/03/2024 2:29 PM [facility] VC PRE 1.93 L 11/03/2024 2:29 PM [facility] IC PRE 1.51 L 11/03/2024 2:29 PM [facility] FRC PL PRE 2.83 L 11/03/2024 2:29 PM [facility] ERV PRE 0.40 L 11/03/2024 2:29 PM [facility] RV PRE 2.42 L 11/03/2024 2:29 PM [facility] RAW PRE 4.59 cmH2O*s/L 11/03/2024 2:29 PM [facility] VTG 3.01 L 11/03/2024 2:29 PM [facility] FVC PRE 1.90 L 11/03/2024 2:29 PM [facility] FEV1 PRE 1.46 L 11/03/2024 2:29 PM [facility] [id number] 76.66 % 11/03/2024 2:29 PM [facility] WEA95-51% PRE 1.25 L/s 11/03/2024 2:29 PM [facility] PEF PRE 5.28 L/s 11/03/2024 2:29 PM [facility] Anatomical Region Laterality Modality PFT 11/03/2024 1:43 PM PLANT OPERATIONS ENGINEER Impressions 11/04/2024 8:14 PM PLANT OPERATIONS ENGINEER 1. Normal spirometry and lung volumes 2. [id number]-dh-[id number] gas trapping 3. Moderate diffusion impairment 4. During 6 minute walk test the patient ambulated 830 ft on ambient air with lowest oxygen saturation of 96% Electronically signed by Tuan Joseph MD Pulmonary & Critical Care Narrative 11/04/2024 8:14 PM PLANT OPERATIONS ENGINEER PULMONARY FUNCTION TESTS Yarelis Leora Javier 63 y.o. 11/04/2024 INTERPRETATION Please see [...] Final Result * eGFR (11/03/2024 1:28 PM PLANT OPERATIONS ENGINEER) eGFR 81 >=60 mL/min/1. 73 m2 Comment: [...] last reviewed 2021. Blood 11/03/2024 1:28 PM PLANT OPERATIONS ENGINEER 11/03/2024 1:46 PM PLANT OPERATIONS ENGINEER Adry Shay MD LAB BLOOD ORDERABLES Final Result [place] [id number] [facility] Department [place] [address] * (ABNORMAL) Differential, auto (11/03/2024 1:28 PM PLANT OPERATIONS ENGINEER) Pathologist [facility] Neutrophil abs 2.3 1.5 - 6.5 K/cumm Imm gran abs 0.0 0.0 - 0.1 K/cumm [facility] Lymphocyte abs 3.7(H) 0.8 - 3.3 K/cumm [facility] Monocyte abs 0.5 0.2 - 0.8 K/cumm [facility] Eosinophil abs 0.1 0.0 - 0.5 K/cumm [facility] Basophil abs 0.0 0.0 - 0.1 K/cumm [facility] Neutrophil pct 34.9 % [facility] Comment: Interpretive Data Percent cell count reference ranges are not reported, since discordance with absolute values may lead to misinterpretation of CBC data. Current Interpretive Data was last revised on 2018. Imm gran pct 0.2 % [facility] Comment: Interpretive Data Percent cell count reference ranges are not reported, since discordance with absolute values may lead to misinterpretation of CBC data. Current Interpretive Data was last revised on 2018. Lymphocyte pct 55.5 % [facility] Comment: Interpretive Data Percent cell count reference ranges are not reported, since discordance with absolute values may lead to misinterpretation of CBC data. Current Interpretive Data was last revised on 2018. Monocyte pct 7.4 % [facility] Comment: Interpretive Data Percent cell count reference ranges are not reported, since discordance with absolute values may lead to misinterpretation of CBC data. Current Interpretive Data was last revised on 2018. Eosinophil pct 1.4 % [facility] Comment: Interpretive Data Percent cell count reference ranges are not reported, since discordance with absolute values may lead to misinterpretation of CBC data. Current Interpretive Data was last revised on 2018. Basophil pct 0.6 % [facility] Comment: Interpretive Data Percent cell count reference ranges are not reported, since discordance with absolute values may lead to misinterpretation of CBC data. Current Interpretive Data was last revised on 2018. Blood 11/03/2024 1:28 PM PLANT OPERATIONS ENGINEER 11/03/2024 1:55 PM PLANT OPERATIONS ENGINEER Adry Shay MD LAB BLOOD ORDERABLES Final Result [facility] [address] [facility] Department of Laboratories [place], [place] [id number] * CBC with auto differential (11/03/2024 1:28 PM PLANT OPERATIONS ENGINEER) Pathologist [facility] WBC 6.7 3.8 - 9.9 K/cumm Hgb 14.7 11.9 - 15.5 g/dL [facility] Hct 45.5 35.6 - 45.5 % [facility] Plt 199 150 - 400 K/cumm [facility] MPV 9.3 9.1 - 12.3 fL [facility] RBC 5.01 3.90 - 5.20 M/cumm [facility] MCV 90.8 81.3 - 96.4 fL [facility] MCH 29.3 27.1 - 33.3 pg [facility] MCHC 32.3 32.3 - 35.7 g/dL [facility] RDW CV 13.2 11.1 - 14.9 % [facility] RDW SD 44.2 35.7 - 48.1 fL [facility] NRBC abs 0.00 0.00 - 0.01 K/cumm [facility] Blood 11/03/2024 1:28 PM PLANT OPERATIONS ENGINEER 11/03/2024 1:55 PM PLANT OPERATIONS ENGINEER Adry Shay MD LAB BLOOD ORDERABLES Final Result Performing Organization Address [facility] de Phone Number [address] [place] [address] * (ABNORMAL) Hemoglobin A1c (11/03/2024 1:28 PM PLANT OPERATIONS ENGINEER) Hgb A1C 6.8(H) 4.0 - 5.6 % Estimated Average Glucose 148 mg/dL [facility] Comment: The ADA recommends reporting an estimated Average Glucose (eAG) with all Hemoglobin A1c results using the equation derived from a study of 507 normal and diabetic adults. Minority populations were underrepresented and children were not included. (Diabetes Care 31:7967-6329, 2008). The eAG is not equivalent to a fasting glucose. Blood 11/03/2024 1:28 PM PLANT OPERATIONS ENGINEER 11/03/2024 1:46 PM PLANT OPERATIONS ENGINEER Adry Shay MD LAB BLOOD ORDERABLES Final Result Performing Organization Address [facility] Co de Phone Number [address] [place] [address] * Lipid panel (11/03/2024 1:28 PM PLANT OPERATIONS ENGINEER) Pathologist [facility] Cholesterol 142 30 - 199 mg/dL Comment: [...] mg/dL High: >160 mg/dL Calculated using the Key LDL-C estimating equation. This equation was implemented on 2024. Prior to this date LDL-C was estimated using the Friedewald equation. Literature References: 1. Expert Panel on Integrated Guidelines for Cardiovascular Health and Risk Reduction in Children and Adolescents. Pediatrics 2011;128:S213 2. NCEP Expert Panel. Circulation 2004;110:227 3. Shahid M et al. LACEY Cardiol. 2020 February 03;5(5):540-548. doi: 10.1001/jamacardio.2020.0013 Current Interpretive Data was last revised on 2024. Non-HDL Cholesterol 75 mg/dL [facility] Comment: Interpretive Data Ages < or = [...] last revised on 2018. Chol/HDL ratio 2 [facility] Blood 11/03/2024 1:28 PM PLANT OPERATIONS ENGINEER 11/03/2024 1:46 PM PLANT OPERATIONS ENGINEER Narrative [facility] - 11/03/2024 2:22 PM PLANT OPERATIONS ENGINEER Has the patient been fasting for 8 hours or more?->Yes Adry Shay MD LAB BLOOD ORDERABLES Final Result [facility] [address] [facility] Department [place] [address] * (ABNORMAL) Comprehensive metabolic panel (11/03/2024 1:28 PM PLANT OPERATIONS ENGINEER) Pathologist [facility] Sodium 142 135 - 145 mmol/L Potassium, pl 3.2(L) 3.3 - 4.9 mmol/L [facility] Chloride 106 97 - 110 mmol/L [facility] CO2 25 22 - 32 mmol/L [facility] Anion gap 11 2 - 15 mmol/L [facility] BUN 7 6 - 25 mg/dL [facility] Creatinine 0.81 0.60 - 1.10 mg/dL [facility] Glucose 119 70 - 199 mg/dL [facility] Comment: Interpretive Data Fasting glucose >/= [...] 2022. Calcium 10.4(H) 8.5 - 10.3 mg/dL [facility] Bilirubin, total 0.2 0.1 - 1.2 mg/dL [facility] Protein, pl 7.2 6.5 - 8.5 g/dL [facility] Albumin 4.2 3.5 - 5.0 g/dL [facility] Alk phos 99 40 - 130 Units/L [facility] ALT <5(L) 7 - 45 Units/L [facility] AST 20 10 - 45 Units/L [facility] Blood 11/03/2024 1:28 PM PLANT OPERATIONS ENGINEER 11/03/2024 1:46 PM PLANT OPERATIONS ENGINEER Adry Shay MD LAB BLOOD ORDERABLES Final Result Performing Organization Address City/State/[facility] Co de Phone Number [facility] [address] [facility] Department [place] [address] * PPD Test (11/01/2024 1:00 PM PLANT OPERATIONS ENGINEER) TB Skin Test Negative Negative Induration 0 mm Other 11/01/2024 1:00 PM PLANT OPERATIONS ENGINEER Adry Shay MD POINT OF CARE TEST [...] Jimy Vargas M.D. KR T: Report ID: [id number] Reading Location: [id number] Procedure Note Jimy Vargas MD - 04/14/2024 [...] Jimy Vargas M.D. KR T: Report ID: [id number] Reading Location: [id number] Kiera Sanders MD IMG CT PROCEDURES Final Resul t * Colonoscopy (03/17/2024 2:28 PM CDT) Anatomical Region Laterality Modality Other Historical Provider ENDOSCOPY PROCEDURES Gail l Result * [...] age 40, based on guidelines of the [employer] (ACR Practice Parameter for the Performance of Screening and Diagnostic Mammography) and [employer]. For women [...] and Genotyping (Cytology Component) (08/11/2023 11:56 AM PLANT OPERATIONS ENGINEER) Thin prep (Pap test) 08/11/2023 11:56 AM PLANT OPERATIONS ENGINEER 08/12/2023 11:56 AM PLANT OPERATIONS ENGINEER Narrative PATHOLOGY [facility] - 08/18/2023 10:04 AM PLANT OPERATIONS ENGINEER [facility] Department of Pathology [address] [place] [address] Final Report with Addendum Note to Patients: [...] the details. Patient Name: YARELIS JAVIER Address: [address] [place] [address] Gender: F : 1960 (Age: 62) Service: Location: [facility] #: [id number] Patient Type: [facility] SPECIMEN Taken: 08/11/2023 Received: 08/12/2023 Accessioned:: 08/12/2023 Reported: 08/18/2023 Physician(s): Mai Casas NP [facility] Diagnosis: SOURCE OF SPECIMEN SCREENING THIN PREP IMAGED PAP w/ HPV: STATEMENT OF ADEQUACY - Specimen satisfactory for interpretation; endocervical/transformation zone component absent or insufficient GENERAL CATEGORIZATION: - Negative for intraepithelial lesion or malignancy MIREYA Kwong(ASCP)MIREYA Goode(ASCP) Report Electronically Reviewed and Signed Out By MIREYA Goode(ASC) 08/18/2023 10:04:14Addenda: HPV Test Interpretation (Normal-Negative for High Risk HPV) HPV HR 16 vaginal- Negative HPV HR 18 vaginal- Negative HPV HR non 16/18 vaginal- Negative Comment: The following High Risk HPV types were not detected: 31, 33, 35, 39, 45, 51, 52, 56, 58, 59, 66, and 68 ADDITIONAL INFORMATION Testing was performed using the dinah HPV assay ([employer] This test has been modified from the operator lights's instructions. Its performance characteristics were determined by [facility] in a manner consistent with CLIA requirements. This test has not been cleared or approved by the U.S. Food and Drug Administration. Test Performed by: [place] [address] Samples And Repairs Preparer: Lokesh Christianson M.D. Ph.D.; CLIA# [id number] MIREYA Kwong(ASC)Report Electronically Reviewed and Signed Out By RAFFAELE KwongASC) 08/15/2023 14:58:55 Specimen(s) Received: A: SCREENING THIN [...] determined by the Surgical Pathology Department at [facility] as part of an ongoing water quality specialist program and in compliance with federally mandated [...] characteristics determined by the Surgical Pathology Department [facility]. It has not been cleared or approved by the [place] Food and Drug Administration. Mai Casas NP LAB CYTOLOGY ORDERABLES Final Result PATHOLOGY [facility] * DIABETES EYE EXAM (07/03/2023) Impressions [...] GENERAL ORDERABLES Final Result Performing Organization Address [facility] Co de Phone Number HUNTER [address] [place] [address] * Albumin Creatinine Ratio, Urine (05/21/2023 4:23 [...] URINE ORDERABLES Final Result Performing Organization Address [facility] de Phone Number [id number] [address] from Last 3 Months or Most Recently Relevant to Health Maintenance Additional Health Concerns Infection Onset Date Last Indicated COVID: Recovered Comment:Added based on recent COVID infection. 12/02/2024 025 Insurance [facility] MEDICARE [employer] MEDICARE [facility] Address: [address] [address] [place] [address] [facility] Advance Directives For more information, please contact: [phone] * Full Code (Latest Code Status on File) Date Activated Date Inactivated Comments 04/12/2023 12:57 PM 04/14/2023 9:33 PM * Full Code Date Activated Date Inactivated Comments 08/16/2021 1:02 PM 08/16/2021 7:27 PM * Full Code Date Activated Date Inactivated Comments 05/09/2021 1:52 PM 05/09/2021 7:11 PM * Full Code Date Activated Date Inactivated Comments 03/14/2021 4:50 PM 03/16/2021 3:17 PM Care Teams Master In Chancery Relationship Specialty Start Date End Date Adry Shay MD [address] [place] [id number] PCP - General Internal Medicine 10/02/20 Rossana Nayak NP 12/09/19 Kenroy Sheikh MD [address] [place] [address] Manager Hvac Cardiology 02/23/20 Jerson Shoemaker, CIVIL ESTIMATOR Speech Language Pathologist Speech Therapy 09/12/22 Kiera Sanders MD [facility] [facility] [address] [facility] [place] [address] Consulting Physician Pulmonary Disease 09/21/24
--- OUTSIDE RECORDS SUMMARY | 2025-01-16 16:39 | XMS_ITS | Data Portability ---
[facility] Address [address] [place] [address] Care Team Providers Care Judicial Administrative Assistant Name Role Phone TARIK [facility]U [facility] SHAUN LIEBERMAN Primary Care Provider Assessment No assessment recorded. Plan of Treatment Reminders Order Date Submit Date Provider Last Modified By Organization Details Last Modified Time Details Appointments None recorded. Lab rapid strep group A, throat 2023 024 [place] [id number] In-Office Order, Internal Use Only DO Not Attach Compendium DO Not Attach Compendium, Do Not Delete/merge, [id number] 18:22:51 influenza virus A + B + SARS-CoV- 2 (COVID19) Ag panel, rapid IA, upper respirato ry specimen 2023 024 [place] [id number] In-Office Order, Internal Use Only DO Not Attach Compendium DO Not Attach Compendium, Do Not Delete/merge, [id number] 18:22:51 influenza virus A + B + SARS-CoV- 2 (COVID19) Ag panel, rapid IA, upper respirato ry specimen 2023 024 DOMINIK In-Office Order, Internal Use Only DO Not Attach Compendium DO Not Attach Compendium, Do Not Delete/merge, [id number] 18:21:43 rapid strep group A, throat 2023 024 DOMINIK In-Office Order, Internal Use Only DO Not Attach Compendium DO Not Attach Compendium, Do Not Delete/merge, [id number] 18:29:55 Referral orthopedi c spine surgeon referral 2020 021 SAL[facility] (Orthopedic Surgery), [address] [place], [address], 17:50:25 physical therapist referral 2020 021 freeman Not available 16:18:15 Procedures None recorded. Surgeries None recorded. Imaging None recorded. Medication Orders Zithromax Z-Víctor [address] [id number], [address] [place] [address], [id number], 5 13:26:44 Medrol (Víctor) 4 mg tablets in a dose pack [address] [facility] #[id number], [address] [place] [address], [id number], 5 13:26:43 ketorolac 30 mg/mL (1 mL) injection solution 2024 025 [email or web address] Not available 5 13:36:01 prednison e 50 mg tablet 2024 025 [email or web address] Not available 13:36:33 cetirizin e 10 mg tablet [address] [facility] #[id number], [address] [place] [address], [id number], 4 18:22:58 Pataday Once Daily Relief 0.2 % eye drops [address] [facility] #05621, [address] [place] [address], [id number], 4 18:22:56 amoxicill in 875 mg-potass ium clavulana te 125 mg tablet 2023 024 [email or web address], [facility], [address], [id number], 15:45:29 Children' s Tylenol 160 mg/5 mL oral suspensio n 2023 024 [email or web address] Not available 18:12:07 Patient TargetsNo targets recorded. Patient Instructions Encounter Date Encounter Id Patient Instructions Last Modified By Organization Details Last Modified Time 05/28/2021 [id number] plantar fasciiti s: care instructions fharry Not available 05/28/2021 15:59:42 plantar fasciiti s: exercises fharry Not available 05/28/2021 15:59:42 toenail fungus: care instructions fharry Not available 05/29/2021 11:02:43 12/29/2023 [id number] A healthy lifestyle: care instructions Not available 12/29/2023 18:05:11 Quitting Tobacco : Care Instructions Not available 12/29/2023 18:05:11 Shared decision making with pt; will tx for otitis media left ear; pt to follow up with community health advocate Not available 12/29/2023 18:43:48 01/26/2024 [id number] A healthy lifestyle: care instructions [email or web address] Not available 01/26/2024 18:22:49 rhinitis: care instructions [email or web address] Not available 01/26/2024 18:22:49 01/08/2025 [id number] A healthy lifestyle: care instructions [email or web address] Not available 01/08/2025 13:26:34 Quitting Tobacco : Care Instructions [email or web address] Not available 01/08/2025 13:26:34 Push fluids and soft diet; advance as tolerated. No juices or sodas as this will increase pain. You can also eat foods such as fruits and vegetables that are high in water content if tolerated. Cover all coughs. Warm saltwater gargles. This will not only help with sore throat but will help break up any drainage to back of throat. Do not share eating or drinking utensils. Good handwashing with soap and water. May use hand sanitizers. Consider use of honey 5 ml by mouth at night to decrease cough and use of dark chocolate; sucking on dark chocolate to assist with decreasing cough. May use over the counter acetaminophen and/or ibuprofen by mouth as needed/directed for pain/fever. May use over the counter throat lozenges to assist with sore throat or cough. Continue taking your jwlo-xwi-[id number] antihistamines. Change toothbrush after 3 days. [email or web address] Not available 01/08/2025 13:32:48 Reason for Referral Physical Therapist Referral for Lesion of left plantar nerve Referring Physician: Zain Lawrence Podiatry, Encounter Date: 05/28/2021 Orthopedic Spine Surgeon Ref erral for Lumbago with sciatica Referring Physician: Zain Lawrence Poddaniloy, Encounter Date: 05/28/2021 Results Created Date Observation Date Name Description Value Unit Range Abnormal Flag Note LastModifiedBy Organization Detail LastModifiedTime 12/29/19 24 12/29/2023 rapid strep group A, throa t Strep negati ve Not Available In-Office Order Internal Use Only DO Not Attach Compendium DO Not Attach Compendium, Do Not Delete/merge, [id number] 12/29/2023 18:04:35 12/29/19 24 12/29/2023 influ libertad virus A + B + SARS- CoV-2 (COVI D19) Ag panel , rapid IA, upper respi rator y speci men Flu A negati ve Not Available In-Office Order Internal Use Only DO Not Attach Compendium DO Not Attach Compendium, Do Not Delete/merge, [id number] 12/29/2023 18:04:29 12/29/19 24 12/29/2023 influ libertad virus A + B + SARS- CoV-2 (COVI D19) Ag panel , rapid IA, upper respi rator y speci men Flu B negati ve Not Available In-Office Order Internal Use Only DO Not Attach Compendium DO Not Attach Compendium, Do Not Delete/merge, [id number] 12/29/2023 18:04:29 12/29/19 24 12/29/2023 influ libertad virus A + B + SARS- CoV-2 (COVI D19) Ag panel , rapid IA, upper respi rator y speci men Rapid SARS CoV 2 Ag, QL IA, respiratory specimen negati ve Not Available In-Office Order Internal Use Only DO Not Attach Compendium DO Not Attach Compendium, Do Not Delete/merge, [id number] 12/29/2023 18:04:29 01/26/20 24 01/26/2024 influ libertad virus A + B + SARS- CoV-2 (COVI D19) Ag panel , rapid IA, upper respi rator y speci men Flu A negati ve Not Available In-Office Order Internal Use Only DO Not Attach Compendium DO Not Attach Compendium, Do Not Delete/merge, 01/26/2024 16:48:44 01/26/20 24 01/26/2024 influ libertad virus A + B + SARS- CoV-2 (COVI D19) Ag panel , rapid IA, upper respi rator y speci men Flu B negati ve Not Available In-Office Order Internal Use Only DO Not Attach Compendium DO Not Attach Compendium, Do Not Delete/merge, [id number] 01/26/2024 16:48:44 01/26/20 24 01/26/2024 influ libertad virus A + B + SARS- CoV-2 (COVI D19) Ag panel , rapid IA, upper respi rator y speci men Rapid SARS CoV 2 Ag, QL IA, respiratory specimen negati ve Not Available In-Office Order Internal Use Only DO Not Attach Compendium DO Not Attach Compendium, Do Not Delete/merge, 01/26/2024 16:48:44 01/26/20 24 01/26/2024 rapid strep group A, throa t Strep negati ve Not Available In-Office Order Internal Use Only DO Not Attach Compendium DO Not Attach Compendium, Do Not Delete/merge, 01/26/2024 16:48:39 Result Notes None recorded. Problems Name Problem SNOMED Code Status Onset Date Resolution Date Notes Provider Name and Address Organization Details Recorded Time Acute otitis media 4088005 Completed 201806/15/2020 Susanna guillen MD Attn: [place], [address], [place] - [facility] 0 15:03:46 Serous otitis media 71010141 Active 2018 Omar Russell PA-C Attn: Aylin agudelo,[address] [facility], [place], [address], [place] [facility] 9 20:15:31 Acute sinusitis 75870619 Completed 201806/15/2020 Susanna guillen MD Attn: Aylin agudelo,[address] [facility], [place], [address], [place] [facility] 0 15:03:49 Prediabetes 777924089 Active 2019 A1C 6.4 10/2019 Susanna guillen MD Attn: Aylin agudelo,[address] [facility], [place], [address], [place] [facility] 0 15:49:03 Mammography abnormal 774999258 Active Irene Ian null[place] [facility] 6 09:38:19 Osteoarthri tis 301339972 Active [place] [facility] 6 09:38:19 Hyperlipide mateo 41276732 Active [place] [facility] 6 09:38:19 Essential hypertensio n 56631069 Active [place] [facility] 6 09:38:19 Menopausal syndrome 172023976 Active [place] [facility] 6 09:38:19 Urticaria 462729456 Active [place] [facility] 6 09:38:19 Knee pain Active [place] [facility] 6 09:38:19 Dental abscess 404651775 Completed 01/07/2017 ASOTN Allen Attn: Accountlizz g,[address] [facility], [place], [address], [place] [facility] 7 14:34:24 Gastroesoph ageal reflux disease 920814486 Active [place] Sosa [place] [facility] 6 09:38:19 Cramp in lower limb 906739117 Active [place] S[place] [facility] 6 09:38:19 Lower abdominal pain 87606223 Active [place] S[place] [facility] 6 09:38:19 Dysuria 64490806 Completed 01/07/2017 ASTON Allen Attn: Aylin agudelo,[address] [place], [address], [place] - [facility] 7 14:34:29 Allergic rhinitis 18718563 Active [place] Sosa [place] [facility] 6 09:38:19 Smoker 88479837 Active [place] Sosa [place] [facility] 6 09:38:19 Lumbar radiculopat hy 579025271 Active Amol Mcadams MD [address] [place], [address], [facility] - [facility] 6 10:06:24 Pain in left knee Active Amol Mcadams MD [address] [place], [address], [facility] - [facility] 6 10:06:24 Problem Notes None recorded. Procedures Surgical History Date Name Laterality Status Provider Name and Address Organization Details Recorded Time 05/28/20 21 Nail Debridement completed ZAIN LAWRENCE DPM [address] [place], [address], [place] [facility] 05/29/2021 11:00:52 11/17/19 21 Injection [place], [address], [place] [facility] 11/17/2020 13:05:10 10/27/19 21 Injection completed ZAIN LAWRENCE DPM [address] [place], [address], [place] [facility] 10/27/2020 17:22:22 07/25/20 20 Flexible Laryngoscopy completed Lenard Garzon MD [address] [place], [address], [facility] - SI 07/25/2020 10:39:30 03/09/20 19 Most Recent Mammogram completed Anthony Hargrove [place] - [facility] 04/19/2019 11:24:47 01/08/20 17 Date of Last Pap Smear completed Anthony Hargrove [place] - [facility] 04/19/2019 11:23:50 04/02/20 16 Joint Injection completed Amol Mcadams MD [address], [place], [address], [facility] - [facility] 04/02/2016 10:06:26 01/22/20 16 [facility] 01/22/2016 11:31:52 08/10/20 15 Joint Injection completed [facility] - SI 08/10/2015 11:40:37 02/22/20 15 Joint Injection completed [facility] - SI 02/21/2015 17:00:30 hysterectomy completed Anthonydwayne Hargrove MA [place] - [facility] 04/19/2019 11:25:43 Imaging Results None recorded. Procedure Notes None recorded. Medical Equipment None Reported. Allergies No known drug allergies Medications Name Sig Start Date Stop Date Status Note LastModified by Organization Details LastModified Time glycopyrrol ate 1 mg tablet 11/23 completed Not Available Not Available Not Available cyclobenzap rine 10 mg tablet Take 1 tablet every day by oral route at bedtime for 30 days. 06/10 completed Not Available Not Available Not Available amoxicillin 500 mg capsule TAKE ONE CAPSULE BY MOUTH TWICE DAILY active Not Available Not Available No t Available methocarbam ol 500 mg tablet TAKE ONE Tablet BY MOUTH TWICE DAILY active Not Available Not Available No t Available bupropion HCl SR 150 mg tablet,12 hr sustained-r elease TAKE ONE Tablet BY MOUTH TWICE DAILY active Not Available Not Available No t Available gabapentin 600 mg tablet TAKE 1 TABLET BY MOUTH THREE TIMES DAILY 2021 active Not Available Not Available Not Avai lable doxycycline hyclate 100 mg capsule TAKE ONE Capsule BY MOUTH TWICE DAILY FOR 7 DAYS active Not Available Not Available No t Available venlafaxine 75 mg tablet Take 1 tablet every day by oral route for 30 days. active Not Available Not Available No t Available nicotine 14 mg/24 hr daily transdermal patch Apply 1 patch every day by transderm al route. active Not Available Not Available No t Available cetirizine 10 mg tablet TAKE 1 TABLET BY MOUTH EVERY DAY active Not Available Not Available No t Available azithromyci n 250 mg tablet TAKE 2 TABLETS (500 MG) BY ORAL ROUTE ONCE DAILY FOR 1 DAY THEN 1 TABLET (250 MG) BY ORAL ROUTE ONCE DAILY FOR 4 DAYS active Not Available Not Available No t Available pravastatin 40 mg tablet Take 1 tablet every day by oral route at bedtime for 90 days. active Not Available Not Available No t Available ibuprofen 800 mg tablet Take 1 tablet 3 times a day by oral route with meals for 30 days. 10/12 completed Not Available Not Available Not Available fluconazole 150 mg tablet Take 1 tablet every 72 hours by oral route for 9 days. 10/12 completed Not Available Not Available Not Available amoxicillin 600 mg-potassiu m clavulanate 42.9 mg/5 mL oral suspension SHAKE LIQUID AND TAKE 5 ML BY MOUTH TWICE DAILY FOR 10 DAYS. DISCARD REMAINDER 05/28 completed Not Available Not Available Not Available clarithromy jeane 500 mg tablet TAKE 1 TABLET BY MOUTH TWICE DAILY FOR 2 WEEKS DIRECTED 01/03 completed Not Available Not Available Not Available hydrocodone 5 mg-acetamin ophen 325 mg tablet Take one tablet by mouth as needed every 8 hours for severe pain. 10/01 completed Not Available Not Available Not Available sucralfate 100 mg/mL oral suspension TAKE 10 ML BY MOUTH FOUR TIMES DAILY FOR 30 DAYS active Not Available Not Available No t Available sucralfate 1 gram tablet TAKE 1 TABLET BY MOUTH THREE TIMES DAILY active Not Available Not Available No t Available prednisone 20 mg tablet active Not Available Not Available Not Available gabapentin 400 mg capsule TAKE 1 CAPSULE BY MOUTH THREE TIMES DAILY active Not Available Not Available No t Available valsartan 160 mg-hydrochl orothiazide 12.5 mg tablet one daily 2014 active rx'd Not Available Not Available Not Avai lable Mobic 7.5 mg tablet Take 1 tablet every day by oral route for 90 days. 01/07 completed Not Available Not Available Not Available promethazin e 6.25 mg-codeine 10 mg/5 mL syrup TAKE 5 ML BY MOUTH EVERY 6 HOURS NEEDED active Not Available Not Available No t Available potassium chloride ER 10 mEq tablet,exte nded release TAKE ONE Tablet BY MOUTH ONCE DAILY active Not Available Not Available No t Available amlodipine 5 mg tablet Take 1 tablet every day by oral route. active Not Available Not Available No t Available sulfamethox azole 800 mg-trimetho prim 160 mg tablet Take 1 tablet every 12 hours by oral route with meals for 7 days. 07/22 completed Not Available Not Available Not Available omeprazole 40 mg capsule,del ayed release TAKE ONE CAPSULE BY MOUTH EVERY DAY active Not Available Not Available No t Available acetaminoph en 500 mg tablet TAKE 1 TABLET BY MOUTH EVERY 6 HOURS NEEDED FOR PAIN active Not Available Not Available No t Available ketorolac 30 mg/mL (1 mL) injection solution Inject 1 mL by intramusc ular route. 2024 active Not Available Not Available Not Avai lable amoxicillin 500 mg tablet 1 g PO x1, then 500 mg PO q8h x3 days 2014 active Not Available Not Available Not Avai lable potassium chloride 20 mEq/15 mL oral liquid TAKE 7.5 ML BY MOUTH ONCE EVERY DAY active Not Available Not Available No t Available Kenalog 40 mg/mL suspension for injection Take 0.25 mL by injection route. 01/03 completed Not Available Not Available Not Available oxycodone-a cetaminophe n 5 mg-325 mg tablet Take one tablet by mouth every 8 hours as needed for severe pain 04/24 completed Not Available Not Available Not Available citalopram 20 mg tablet Take 1 tablet every day by oral route. 06/10 completed Not Available Not Available Not Available famotidine 20 mg tablet active Not Available Not Available Not Available methocarbam ol 750 mg tablet 04/24 completed Not Available Not Available Not Available DOK 100 mg capsule Take 1 capsule every day by oral route with meals for 30 days. 10/12 completed Not Available Not Available Not Available gentamicin 0.3 % eye drops INSTILL 1 DROP IN BOTH EYES EVERY 4 HOURS FOR 3 DAYS active Not Available Not Available No t Available nicotine (polacrilex ) 4 mg gum active Not Available Not Available N ot Available dicyclomine 20 mg tablet 11/23 completed Not Available Not Available Not Available amlodipine 10 mg tablet TAKE ONE Tablet BY MOUTH ONCE DAILY active Not Available Not Available No t Available cephalexin 500 mg capsule TAKE ONE Capsule BY MOUTH TWICE DAILY for 7 days active Not Available Not Available No t Available diphenhydra mine 25 mg capsule active Not Available Not Available Not Available ranitidine 150 mg tablet TAKE 1 TABLET(S) TWICE A DAY BY ORAL ROUTE BEFORE MEALS. 10/12 completed Not Available Not Available Not Available prednisone 50 mg tablet Take 1 tablet by oral route. 2024 active Not Available Not Available Not Avai lable lidocaine 5 % topical patch APPLY 1 PATCH TO PAINFUL AREA FOR 12 HOURS THEN REMOVE FOR 12 HOURS active Not Available Not Available No t Available nicotine 21 mg/24 hr daily transdermal patch APPLY ONE PATCH TRANSDERM ALLY DAILY FOR SMOKING CESSATION - ROTATE SITES DAILY FOR FOURTEEN DAYS THEN START 14MG PATCHES active Not Available Not Available No t Available hydrochloro thiazide 12.5 mg capsule TAKE 1 TABLET BY MOUTH ONCE EVERY DAY active Not Available Not Available No t Available diclofenac potassium 50 mg tablet Take 1 tablet twice a day by oral route with meals for 30 days. 01/07 completed Not Available Not Available Not Available gabapentin 300 mg capsule TAKE ONE Capsule BY MOUTH THREE TIMES DAILY FOR NEUROPATH IC PAIN active Not Available Not Available No t Available omeprazole 20 mg capsule,del ayed release TAKE 1 CAPSULE BY MOUTH EVERY DAY DIRECTED active Not Available Not Available No t Available montelukast 10 mg tablet TAKE ONE TABLET BY MOUTH EVERY DAY (FOR BREATHING ) active Not Available Not Available No t Available gabapentin 100 mg capsule TAKE ONE CAPSULE BY MOUTH TWICE DAILY active Not Available Not Available No t Available azelastine 137 mcg (0.1 %) nasal spray instill TWO SPRAYS into each nostril TWICE DAILY active Not Available Not Available No t Available ibuprofen 600 mg tablet Take 1 tablet every 8 hours by oral route as needed. 06/10 completed Not Available Not Available Not Available polyethylen e glycol 3350 17 gram/dose oral powder MIX 17gm ( MARKED INSIDE OF CAP) WITH 8 OUNCES OF WATER AND DRINK ONCE DAILY FOR CONSTIPAT ION active Not Available Not Available No t Available estradiol 0.01% (0.1 mg/gram) vaginal cream active Not Available Not Available Not Available methylpredn isolone 4 mg tablets in a dose pack FOLLOW PACKAGE DIRECTION S active Not Available Not Available No t Available albuterol sulfate HFA 90 mcg/actuati on aerosol inhaler INHALE 2 PUFFS BY MOUTH EVERY FOUR TO SIX HOURS NEEDED active Not Available Not Available No t Available cefdinir 300 mg capsule TAKE 1 CAPSULE BY MOUTH EVERY 12 HOURS 01/03 completed Not Available Not Available Not Available losartan 100 mg tablet TAKE 1 TABLET BY MOUTH ONCE EVERY DAY (FOR BLOOD PRESSURE) active Not Available Not Available No t Available fluticasone propionate 50 mcg/actuati on nasal spray,suspe nsion USE ONE SPRAY IN EACH NOSTRIL EVERY DAY active Not Available Not Available No t Available metformin ER 500 mg tablet,exte nded release 24 hr TAKE ONE Tablet BY MOUTH ONCE DAILY WITH BREAKFAST active Not Available Not Available No t Available loratadine 10 mg tablet TAKE ONE TABLET BY MOUTH EVERY DAY FOR ALLERGIES active Not Available Not Available No t Available naproxen 500 mg tablet 11/23 completed Not Available Not Available Not Available metoclopram daniel 10 mg tablet 06/10 completed Not Available Not Available Not Available amoxicillin 875 mg-potassiu m clavulanate 125 mg tablet TAKE 1 TABLET BY MOUTH EVERY 12 HOURS active Not Available Not Available No t Available nicotine 7 mg/24 hr daily transdermal patch Apply 1 patch every day by transderm al route. 11/23 completed Not Available Not Available Not Available valsartan 160 mg tablet Take 1 tablet every day by oral route. 2014 active Not Available Not Available Not Avai lable Children's Tylenol 160 mg/5 mL oral suspension Take 30 mL by oral route. 2023 active Not Available Not Available Not Avai lable nicotine 21mg/24hr-1 4mg/24hr-7m g/24hr daily transderm patches,seq uentl Apply 1 patch every day by transderm al route. 01/07 completed Not Available Not Available Not Available rosuvastati n 20 mg tablet TAKE ONE Tablet BY MOUTH ONCE DAILY active Not Available Not Available No t Available rosuvastati n 40 mg tablet TAKE ONE TABLET BY MOUTH EVERY DAY active Not Available Not Available No t Available nitrofurant oin monohydrate /macrocryst als 100 mg capsule Take 1 capsule every 12 hours by oral route for 5 days. 04/19 completed Not Available Not Available Not Available cefdinir 250 mg/5 mL oral suspension SHAKE LIQUID AND TAKE 5 ML BY MOUTH EVERY 12 HOURS active Not Available Not Available No t Available hydrochloro thiazide 12.5 mg tablet Take 1 tablet every day by oral route. 2014 active Not Available Not Available Not Avai lable Symbicort 160 mcg-4.5 mcg/actuati on HFA aerosol inhaler INHALE 2 PUFFS BY MOUTH TWICE DAILY - RINSE MOUTH AFTER USE AFTER USE - DO not swallow active Not Available Not Available No t Available Chest Congestion Relief 100 mg/5 mL oral liquid TAKE TWO TEASPOONF UL BY MOUTH FOUR TIMES DAILY NEEDED FOR COUGH active Not Available Not Available No t Available Adult Robitussin Peak Cold DM 10 mg-100 mg/5 mL oral liquid Take 10 mL 6 times a day by oral route as directed for 10 days. 06/10 completed Not Available Not Available Not Available OneTouch Verio test strips USE TO TEST BLOOD SUGAR ONCE DAILY active Not Available Not Available No t Available Chantix Starting Month Box 0.5 mg (11)-1 mg (42) tablets in dose pack 11/23 completed Not Available Not Available Not Available Jardiance 10 mg tablet take 1 tablet by mouth daily active Not Available Not Available No t Available Jardiance 25 mg tablet TAKE ONE TABLET BY MOUTH EVERY DAY active Not Available Not Available No t Available OneTouch Verio Flex Meter USE TO TEST BLOOD SUGAR ONCE DAILY active Not Available Not Available No t Available OneTouch Delica Plus Lancet 33 gauge USE TO TEST BLOOD SUGAR ONCE DAILY active Not Available Not Available No t Available M-Dryl 12.5 mg/5 mL oral liquid Take 10 mL as needed by oral route at bedtime for 30 days. 10/12 completed Not Available Not Available Not Available Pataday Once Daily Relief 0.2 % eye drops INSTILL 1 DROP INTO AFFECTED EYE(S) BY OPHTHALMI C ROUTE ONCE DAILY 2023 active Not Available Not Available Not Avai lable Paxlovid 300 mg (150 mg x 2)-100 mg tablets in a dose pack TK 2 NIRMATREL VIR TS AND 1 RITONAVIR T TOGETHER PO TWICE DAILY X 5 DAYS active Not Available Not Available No t Available Vitals Date Recorded Body height Body mass index (BMI) Body weight Heart rate Respiratory rate Body temperature Systolic blood pressure Diastolic blood pressure Provider Name and Address Organization Details Last Updated DateTime 1 160.02 cm 30.5 kg/m2 90361.8 9 g 80 /min 18 /min 97.3 [degF] 150 mm[Hg] 94 mm[Hg] Trinh Adam LPN [facility] 1 15:02:57 Date Recorded Body height Body mass index (BMI) Body weight Pain severity - 0-10 verbal numeric rating [Score] - Reported Body temperature Heart rate Systolic blood pressure Diastolic blood pressure Provider Name and Address Organization Details Last Updated DateTime 1 160.02 cm 30.5 kg/m2 66361.8 9 g 8 97.3 [degF] 80 /min 150 mm[Hg] 94 mm[Hg] Kym Covarrubias LPN [facility] 1 15:26:30 Date Recorded Body height Body mass index (BMI) Body weight Oxygen saturation Oxygen saturation in Arterial blood by Pulse oximetry Heart rate Respiratory rate Body temperature Systolic blood pressure Diastolic blood pressure Provider Name and Address Organization Details Last Updated DateTime 4 160.02 cm 30 kg/m2 76963.8 3 g 99 % 99 % 74 /min 16 /min 99.7 [degF] 128 mm[Hg] 86 mm[Hg] Lori Dailey MA [facility] SIF 4 18:02:33 Date Recorded Body height Body mass index (BMI) Body weight Oxygen saturation Oxygen saturation in Arterial blood by Pulse oximetry Heart rate Body temperature Systolic blood pressure Diastolic blood pressure Provider Name and Address Organization Details Last Updated DateTime 4 160.02 cm 30 kg/m2 91455.8 6 g 99 % 99 % 64 /min 98.6 [degF] 121 mm[Hg] 79 mm[Hg] Nolan Patton MA [facility] SI 4 16:47:42 Date Recorded Body height Body mass index (BMI) Body weight Oxygen saturation Oxygen saturation in Arterial blood by Pulse oximetry Heart rate Respiratory rate Body temperature Systolic blood pressure Diastolic blood pressure Provider Name and Address Organization Details Last Updated DateTime 5 160.02 cm 29 kg/m2 09595.7 1 g 98 % 98 % 90 /min 18 /min 98.9 [degF] 140 mm[Hg] 92 mm[Hg] Lori Dailey MA [facility] SI 5 13:16:24 Social History Question Answer Notes LastModified by Organizat ion Details LastModified Time Tobacco Smoking Status Current Every Day Smoker c RANJAN [place], [place] - [facility] 12/29/2023 17:47:51 What Is Your Level Of Alcohol Consumption? Moderate Information not available 04/19/2019 What Is Your Level Of Caffeine Consumption? Occasional Information not available 12/29/2023 In The 14 Days Before Symptom Onset, Have You Had Close Contact With A Laboratory-confi rmed COVID-19 While That Case Was Ill? No Information not available 01/26/2024 In The 14 Days Before Symptom Onset, Have You Had Close Contact With A Person Who Is Under Investigation For COVID-19 While That Person Was Ill? No Information not available 01/26/2024 Have You Been To An Area Known To Be High Risk For COVID-19? No Information not available 01/26/2024 Are You Deaf Or Do You Have Serious Difficulty Hearing? No Information not available 12/29/2023 What Type Of Diet Are You Following? REGULAR Information not available 12/29/2023 Do You Or Have You Ever Used E-cigarettes Or Vape? Never Used Electronic Cigarettes Information not available 10/12/2019 Are There Any Guns Present In Your Home? No Information not available 12/29/2023 What Was The Date Of Your Most Recent Tobacco Screening? 01/08/2025 Information not available 01/08/2025 What Is Your Current Pack Years? [email or web address] Information not available 01/26/2024 Do You Use Protection During Sex? Always When Active Information not available 04/19/2019 Do You Use Your Seat Belt Or Car Seat Routinely? Yes Information not available 12/29/2023 Are You Sexually Active? No Information not available 04/19/2019 Do You Have Smoke And Carbon Monoxide Detectors In Your Home? Yes Information not available 12/29/2023 Are You Passively Exposed To Smoke? Yes Information not available 12/29/2023 Do You Or Have You Ever Used Smokeless Tobacco? Never Used Smokeless Tobacco [email or web address] Information not available 10/12/2019 How Much Tobacco Do You Smoke? 1 PPD Information not available 04/19/2019 Do You Feel Stressed (tense, Restless, Nervous, Or Anxious, Or Unable To Sleep At Night)? [id number] Information not available 12/29/2023 Do You Use Any Illicit Or Recreational Drugs? No Information not available 12/29/2023 Do You Use Sunscreen Routinely? No Information not available 12/29/2023 Has Tobacco Cessation Counseling Been Provided? Yes [email or web address] Information not available 04/22/2019 On What Date Was Tobacco Cessation Counseling Provided? 01/08/2025 Information not available 01/08/2025 How Many Years Have You Smoked Tobacco? 10 [email or web address] Information not available 09/23/2014 Do You Or Have You Ever Used Any Other Forms Of Tobacco Or Nicotine? No Information not available 01/26/2024 Sex: Female Functional Status Question Answer Note LastModified by Organization D etails LastModified Time Are you able to care for yourself? Yes Information n ot available 12/29/2023 What is your exercise level? None Information not available 12/29/2023 Mental Status None recorded. Family History Nothing Reported. Medical History Condition Response Muscle, Joint, or Bone Problems Y Acid Reflux (GERD) Y Other Headaches/Migraines Y High Blood Pressure Y Allergies Y Gynecological History Statement/Question Response Abnormal Pap N Sexually Active? N Menses Monthly N STIs/STDs N Date of Last Pap Smear 01/07/2017 Age at Menarche 14 Current Control Method Hysterectom y Most Recent Mammogram 03/09/2019 Obstetrics History GPAL:G 5 P 0 0 0 5 Type Value Multiple Births 0 Induced 0 Spontaneous 0 Living 5 Ectopics 0 Total 5 Immunizations Vaccine Type Date Status Note Provider Senthil e and Address Organization Details Recorded Time COVID-19, mRNA, LNP-S, PF, 30 mcg/0.3 mL dose, akash-sucrose 05/27/2022 completed Fadi Barillas MD Attn: Accounting,[address] [place], [address], [facility] - SI 05/30/2022 00:46:22 Past Encounters Encounter ID Performer Location Encounter Start Date Encounter Closed Date Diagnosis/Indication Diagnosis SNOMED-CT Code Diagnosis ICD10 Code Diagnosis Note [id number] Luis Carlos e [facility] ([facility]) [address] [place] [address] 09/23/2014 14:46:33 10/04/2014 03:51:20 Allergic rhinitis 50082826 Smoker 67879474 [id number] ASTON Allen Bell[facility] e [facility] ([facility]) [address] [place] [address] 01/12/2015 10:39:11 01/13/2015 09:13:16 Osteoarthritis 714033544 Suspect OA of the low back, no red flags will defer imaging for now, will do a trail of PT, muscle relaxant as well and mobic Hyperlipidemia 97820191 I will refill her statin, patient reports some muscle aching before taking a statin will check labs just in case this is statin induced myopathy. Essential hypertension 33718125 At goal, continue current medication s Menopausal syndrome 646853982 will treat with Effexor for vasomotor symptoms. [id number] Stephany Johnston RN [facility] ([facility]) [address] [place] [address] 02/21/2015 15:59:00 02/21/2015 17:03:24 Urticaria 688592622 Ongoing for 3 weeks, no relief with Benadryl and hydrocorti sone cream OTC, will treat with singulair for generalize d itchy, and will do blood work for possible environmen osmin trigger. F/U in ten days. Knee pain 00287057 I preston l do an injection into her left knee, see procedure note for full details. [id number] ASTON Allen [place] [facility] ([facility]) [address] [place] [address] 03/02/2015 15:56:42 03/03/2015 08:40:16 Urticaria 829100473 Allergic to mold per Rast. IgE 402. Needs to be taking a daily antihistam ine (can take zyrtec or reny) Essential hypertension 89633314 Reports she could not get BP medication refilled, will send in today. Dental abscess 689210869 Encouraged that she seek apt with dentist. Will treat short term and instructed to use NSAID for pain/swell ing. 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 [id number] Tad Hartevill e FP ([facility]) [address] [place] [address] 01/22/2016 10:54:09 01/22/2016 11:36:37 Lower abdominal pain 48698139 R10.30 Described as suprapubic burning, ongoing for one month, some relief with PPI, recommend keeping pain journal, and I will increase her PPI to BID dosing, will send to GI as well patient is due for a screening colonscopy , UA done, will send off for culture. Knee pain 69903213 M25.5 62 54 yo woman with chronic left knee pain, repeat injection done today, last injection done in Aug 2015 Dysuria 34882615 R30.0 [id number] Irene Sosa [facility] [address] [place] [address] 04/02/2016 09:23:16 04/02/2016 10:09:29 Lumbar radiculopathy 511130122 M54.16 Pain in left knee 286788 8247 35953 M25.177 [id number] ASTON Allen [place] [facility] ([facility]) [address] [facility] [place] [address] 08/05/2016 10:06:05 08/06/2016 10:19:18 Low back pain 545037840 M54.5 UA negative. May try OTC pain medication , stretching and heat/ice as tolerated. Abscess 947089498 L02.91 If not better in 2-3 days should return to clinic. If area becomes bigger, more painful or if she develops fever she should report to the ER. Essential hypertension 12194959 I10 Controlled today. Continue low salt diet. Encouraged exercise. [id number] ASTON Allen e FP ([facility]) [address] [facility] [address] 01/07/2017 14:13:25 01/08/2017 12:01:07 Screening for malignant neoplasm of colon 272374831 Z12.11 Due for colonoscop y Moderate depression 3104 60089 F32.1 Positive PHQ-9. Willing to start medication for depression . Appropriat e for outpt therapy. Should report to ER for SI. See back in 2-3 weeks for medication check. Gastroesop hageal reflux disease 840812169 K21.9 Will refer to GI for continued GERD symptoms on Omeprazole . Discussed diet. Gynecologi c examination 20596773 Z01.419 PAP collected and sentDue for mammogram Essential hypertension 04952369 I10 Controlled today. Continue low salt diet. Encouraged exercise. [id number] ASTON Allen e FP ([facility]) [address] [facility] [address] 02/20/2017 10:03:55 02/21/2017 17:11:39 Low back pain 783830917 M54.5 Has MRI scheduled at [facility] at 1:30. Will refer to Neurosurge ry once imaging is available. Should return to the ER for increased pain and numbness in RLE or inability to walk. Expiratory wheezing 9763 007 R06.2 Will start albuterol inhaler for wheezing. Encouraged smoking cessation. Should return to office if needing inhaler more than 3x per week. [id number] ASTON Allen [place] [facility] ([facility]) [address] [facility] [address] 06/11/2017 10:06:21 06/12/2017 10:07:17 Lower abdominal pain 23449198 R10.30 Discussed diet. LLQ pain may be 2/2 to constipati on. Start increasing fiber in diet and discuss symptoms with GI. Gastroesop hageal reflux disease 700080863 K21.9 Encouraged to call GI for continued GERD symptoms on Omeprazole . Discussed diet. [id number] Arnoldo Ruff MD [facility] (Adult/Fa m Med) [address] [place] [address] 09/04/2017 15:35:04 09/09/2017 17:36:54 Essential hypertension 19363012 I10 Acute bronchitis 9402674 2 J20.9 [id number] ASTON Allen [facility] ([facility]) [address] [place] [address] 09/22/2017 15:40:56 10/09/2017 10:00:14 Allergic rhinitis 65679652 J30.2 -Start nasal spray-May try sinus rinse-incr ease humidity at home Lumbar radiculopathy 128 169059 M54.16 -OTC medication s for pain-Shoul d return to ortho for further eval Pain in wrist 45435210 M 25.531 Differenti al includes arthritis vs carpal tunnel syndromeEn couraged OTC pain medication and ROM exercises. [id number] ASTON Allen [facility] ([facility]) [address] [place] [address] 06/10/2018 13:49:45 07/07/2018 13:17:01 Essential hypertension 72815536 I10 Controlled today.Cont inue low salt diet.Encou raged exercise. Screening for malignant neoplasm of breast 641289313 Z12.31 Knee pain 84752053 M25.5 61 -Will need xray before she can receive injection- OTC pain medication s as needed-Hea t and ice to knee for additional comfort. 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 Urinary incontinence 165 604087 R32 with flank pain duration 2-3 mo. Dysuria-fr equency syndrome 4612003 R35.0 Painful ur ging to urinate 21299723 R30.0 Nocturia 742886400 R35.1 X 5-6 nightly mom was diabetic @ age 77 y\o r\t sepsis, kidney dx. Chronic id iopathic constipation 99399497 K59.04 Rectal abscess 712881814 K61.1 Duration X 7 days no exudate noted today patient debrided wound & cleaned very; last PM advised to RTO if S & S continue with exudate for C & S Influenza vaccination declined 258082315 Z28.21 offered & refused [id number] Omar Russell PA-C [facility] [address] [place] [address] 09/16/2019 18:41:54 09/17/2019 09:27:55 Acute otitis media 5411903 H66.91 Acute sinusitis 85454271 J01.90 Allergic rhinitis 382392 04 J30.9 Essential hypertension 60476229 I10 [id number] Glendy Nayak NP-C [facility] garcia ([facility]) [address] [place], [place] [address] [place] [address] 10/12/2019 15:33:27 10/15/2019 09:33:52 Flank pain 794117214 R10.9 -check UA in office-sen d for cx Hyperglycemia 23402102 R 73.9 -check A1C today, was pre-diabet ic in April with PHD INTERN Essential hypertension 67046790 I10 -Controlle d on current therapy.-G oals: BP < 140/90 per JNC8, prevent CV and renal comorbidit ies.-Shoul d notify office for BP less than 90/60.-Clarissa ntain a low sodium (less than 2000mg) diet and encouraged at least 30-45 minutes of aerobic activity most days of the week-Encou raged smoking cessation. Hyperlipidemia 00702666 E78.5 -check FLP-encour aged low fat diet and exercise as tolerated Lumbago with sciatica 20 2326290 M54.42 -chronic, send to PT-OTC pain medication as needed [id number] Glendy Nayak NP-[facility] [place] [facility] ([facility]) [address] [place] [address] 10/27/2019 16:22:55 11/03/2019 08:58:58 Epigastric pain 60748203 R10.13 -need CT scan from [facility] with labs-would like referral to da surgery once results are available Incomplete emptying of urinary bladder 837500272 R39.14 -UA negative-r efer to urology as this has been a chronic problem for her [id number] Susanna ortiz MD [facility] (Adult Med) [address] [place] [address] 06/15/2020 14:44:37 06/16/2020 12:07:30 Screening for disorder 790455280 Z13.9 Pt will schedule Dysfunctio n of eustachian tube 22352916 H69.92 Chronic, requests referal Essential hypertension 49239235 I10 above goal but only on one of her meds. Restart and recheck at FU. Spinal kyle nosis of lumbar region 64992672 M48.061 Request records from neurosurg - one visit available 2016. Not clear why fell out of care. Given ongoing sx, may benefit from reeval. MRI/neuros urg [id number] Lenard Garzon MD [facility] [address] [place] [address] 07/04/2020 11:53:17 07/04/2020 16:21:48 Acute sinusitis 29058834 J01.90 Eustachian tube disorder 55249064 H69.91 [id number] Lenard Garzon MD [address] [address] 07/25/2020 10:10:44 07/25/2020 13:56:42 Dysphagia 46326760 R13.10 Chronic sinusitis 589719 00 J32.9 Dysfunctio n of eustachian tube 13671637 H69.92 continue flonase [id number] Lenard Garzon MD [facility] [address] [place] [address] 09/04/2020 14:40:26 09/05/2020 16:00:44 Dysphagia 65537499 R13.10 Acute sinusitis 76816013 J01.90 [id number] Lenard Garzon MD [address] [address] 09/18/2020 10:54:13 09/18/2020 16:39:30 Chronic sinusitis 89038746 J32.9 add saline irrigation to the flonase and return if not improving [id number] ZAIN LAWRENCE DPM [address] [address] 10/27/2020 15:21:47 10/30/2020 10:51:08 Calcaneal spur of left foot 1930157880 18980 M77.32 Plantar fasciitis 829679 003 M72.2 Pain in left foot 566506 1946 42772 M79.672 Lesion of left plantar nerve 8011086676 59267 G57.62 Lumbago with sciatica 20 6977540 M54.42 Idiopathic peripheral neuropathy 49579488 G60.9 [id number] ZAIN LAWRENCE DPM [address] [address] 11/17/2020 12:10:55 11/22/2020 10:40:06 Calcaneal spur of left foot 9833811840 61895 M77.32 Plantar fasciitis 533246 003 M72.2 Pain in left foot 568357 6477 01198 M79.672 Lesion of left plantar nerve 5298275775 43387 G57.62 Lumbago with sciatica 20 3445235 M54.42 Idiopathic peripheral neuropathy 40759267 G60.9 [id number] Lenard Garzon MD [facility] [address] [place] [address] 11/23/2020 15:04:28 11/27/2020 09:32:16 Chronic sinusitis 28894892 J32.9 add saline irrigation to the flonase and return if not improving 11/23/20 Pt to follow back after upper GI [id number] Lenard Garzon MD [facility] [address] [place] [address] 11/30/2020 14:32:11 12/01/2020 10:31:44 Acute sinusitis 01908682 J01.90 Dysphagia 32278663 R13.1 0 Pt to follow back with GI [id number] ZAIN LAWRENCE DPM [facility] [address] [place] [address] 12/08/2020 11:39:39 12/12/2020 12:09:33 Calcaneal spur of left foot 1859358942 48018 M77.32 Plantar fasciitis 859780 003 M72.2 Pain in left foot 626196 4355 11515 M79.672 Lesion of left plantar nerve 4496304540 87031 G57.62 Lumbago with sciatica 20 9240867 M54.42 Idiopathic peripheral neuropathy 01394495 G60.[id number] [facility] [address] [place] [address] 01/03/2021 11:52:37 01/03/2021 13:40:46 Calcaneal spur of left foot 9957356888 80955 M77.32 Plantar fasciitis 060962 003 M72.2 Pain in left foot 830761 8767 02490 M79.672 Lesion of left plantar nerve 8171596786 96768 G57.62 Lumbago with sciatica 20 2725366 M54.42 Idiopathic peripheral neuropathy 89740872 G60.9 [id number] [facility] [address] [place] [address] 03/22/2021 14:35:54 03/22/2021 15:19:14 Chronic sinusitis 57314050 J32.9 add saline irrigation to the flonase and return if not improving 11/23/20 Pt to follow back after upper GI [id number] ZAIN LAWRENCE DPM [facility] [address] [place] [address] 03/27/2021 12:12:35 03/28/2021 15:15:00 Calcaneal spur of left foot 5259350908 94184 M77.32 Plantar fasciitis 393827 003 M72.2 Pain in left foot 381145 3749 75621 M79.672 Lesion of left plantar nerve 6502776948 30110 G57.62 Lumbago with sciatica 20 2033609 M54.42 Idiopathic peripheral neuropathy 22797935 G60.9 [id number] [facility] [address] [place] [address] 05/28/2021 14:48:45 05/28/2021 16:36:28 Acute sinusitis 92372450 J01.90 Chronic rhinitis 6629440 6 J31.0 [id number] [address] DPM [facility] [address] [place] [address] 05/28/2021 14:48:33 05/30/2021 15:20:10 Calcaneal spur of left foot 9020545165 12424 M77.32 Plantar fasciitis 224310 003 M72.2 Pain in left foot 776866 4715 75635 M79.672 Lesion of left plantar nerve 6721982376 52315 G57.62 Lumbago with sciatica 20 4549988 M54.42 Idiopathic peripheral neuropathy 33637028 G60.9 Onychomycosis 298209270 B35.1 Pain in right foot 31053 65996 25296 M79.831 [id number] Fadi Barillas MD [address] [address] 05/27/2022 17:52:44 05/28/2022 10:19:51 Administration of SARS-CoV-2 mRNA vaccine 4538676374 Z23 [id number] ARNOLDO JACOBSEN, MATT [facility] [address] [place] [address] 12/29/2023 17:44:46 12/30/2023 13:07:52 Obesity 977561814 E66.9 Smoker 40975664 F17.200 Viral syndrome 784086026 B34.9 Acute otitis media 34296 03 H66.92 [id number] GLENDY SUTHERLAND NP [facility] [address] [place] [address] 01/26/2024 16:23:32 01/27/2024 08:35:39 Obesity 359562114 E66.9 Chronic rhinitis 2063678 6 J31.0 acute on chronic [id number] JAE Verduzco [facility] [address] [place] [address] 01/08/2025 13:08:49 01/10/2025 16:20:06 Smoker 75943423 F17.200 Overweight 939676862 E66 .3 Acute sinusitis 55382108 J01.90 Health Concerns Section Related Observation LastModified by Organization Detai ls LastModified Time None Recorded Concern Status LastModified by Organization Details LastModified Time None Recorded Advance Directives Directive None Recorded Payers Encounter Date Sequence Insurance Name Policy Number Policy Pugh Covered Member ID Pugh Member ID Guarantor Name 05/28/2021 1 [facility] ON OR AFTER 04/05/21 (MEDICAID REPLACEMENT - HMO) Yarelis Javier [id number] Yarelis Javier 05/27/2022 1 [facility] PRIOR TO 04/05/2021 (MEDICAID REPLACEMENT - HMO) Yarelis Javier [id number] Yarelis Javier 12/29/2023 1 [facility] PRIOR TO 04/05/2021 (MEDICAID REPLACEMENT - HMO) Yarelis Javier [id number] Yarelis Javier 12/29/2023 1 [facility] ON OR AFTER 04/05/21 (MEDICAID REPLACEMENT - HMO) Yarelis Javier [id number] Yarelis Javier 01/26/2024 1 [facility] PRIOR TO 04/05/2021 (MEDICAID REPLACEMENT - HMO) Yarelis Javier [id number] Yarelis Javier 01/26/2024 1 [facility] - DOS ON OR AFTER 21 (MEDICAID REPLACEMENT - HMO) Yarelis Javier [id number] Yarelis Javier 01/08/2025 1 [facility] - DOS PRIOR TO 2021 (MEDICAID REPLACEMENT - HMO) Yarelis Javier [id number] Yarelis Javier 01/08/2025 1 [facility] - DOS ON OR AFTER 21 (MEDICAID REPLACEMENT - HMO) Yarelis Javier [id number] Yarelis Javier Notes Date Note Type Note Provider Name and Address Organization Details Recorded Time 05/28/2021 text/html Patient presents today for evaluation and treatment of nail deformities as well as generalized foot care. The patient states their nails are painful. The patient has been unable to provide self care due to the severe nature of the deformity and their medical condition(s). The patient is receiving medically necessary foot care in order to prevent further problems as well as to relieve irritation and discomfort. Patient states prior injury to lower back and left hip and left knee that she has seen an orthopedic surgeon. Patient also states dropping a large bowl on the left 3rd interdigital space of the forefoot leaving a scar that has been causing sharp pain for the past 10 years initiallty graded 10/10, that is today graded 5/10. patient also presents f/u sharp pain in left heel initially graded 10/10 beginning early September 2020 after a long day of walking that is today graded 0-1/10. Patient relates pain greatest with first step of the day and after periods of sitting and pain is relieved by rest with pain shooting up her legs and states she has been using the gabapentin that was prescribed at last visit ZAIN LAWRENCE, ALFRED [address] [place], [address], [facility] - [facility] 05/29/2021 11:03:41 05/28/2021 text/html patient complaining of blood each of her left ear. She has popping and pressure that seems to come and go. She has mild discomfort in her left ear as well. She does have nasal congestion drainage but said a CT scan which showed her sinuses are fairly clear. She can not tolerate Flonase. Lenard Garzon MD [address], [place], [address], [place] [facility] 05/28/2021 15:19:48 12/29/2023 text/html Pt is a 63 yo female presents with viral type sx's since yesterday ARNOLDO JACOBSEN NP Attn: Accounting, [address] [facility] [place], [address], [facility] - [facility] 12/29/2023 18:44:14 01/26/2024 text/html 63 yo female w/h x chronic rhinitis to c/o sore throat, cough, left ear pain, and left eye irritation x1 week. She was seen at on 12/29/23 with similar sx, dx with viral syndrome (negative flu/covid/strep) and left OM. She was prescribed 10-day course of Augmentin with which she reported compliance. She did felt a little better briefly but symptoms increased again over the past week. She denied SOB, CP, fever, or chills. GLENDY SUTHERLAND NP Attn: Accounting, [address] [facility], [place], [address], [facility] 01/26/2024 20:24:07 01/08/2025 text/html Patient has complaints of headache behind my left eye into my ear and my throat is sore. Onset x 4 days. Has been taking OTC cold medications without relief. Denies fevers. JAE Verduzco Attn: Accounting, [address] [place], [address], [facility] 01/08/2025 13:34:31 OBGyn Episode No OBEpisode recorded.
--- OUTSIDE RECORDS SUMMARY | 2025-01-16 16:39 | XMS_ITS | CONTINUITY OF CARE DOCUMENT ---
Author Name susan davis Address Unknown Organization [facility] Address [address] [address] [place] [address] Phone [phone] Care Team Providers Care Extract Mixer Name Role Phone Reji Fernández MD Unavailable Reji Fernández MD Unavailable [phone] INSURANCE PROVIDERS Payer name Policy type / Coverage type [place] red libertarian [place] MEDICAID (2) Medicaid [id number]
--- OUTSIDE RECORDS SUMMARY | 2025-01-16 16:39 | XMS_ITS | Clinical Summary ---
Author Organization [facility] Address [address] [place] [address] Care Team Providers Care Broaching Machine Set Up Operator Name Role Phone Malini Rossana GUTIERREZ Primary Care Provider [phone] Deondre Donnelly MD Unavailable [phone] Allergies No known active allergies Medications amlodipine 5 MG tablet Take 5 mg by mouth daily. 09/16/2019 Active losartan 100 MG tablet Take 100 mg by mouth daily. Active Active Problems Problem Noted Date Diagnosed Date Hypertension Family History Medical History Relation Comments Valve Disease Father Valve Disease Mother Relation Status Comments Father (Age 80) Mother (Age 77) Social History Tobacco Use Types Packs/Day Years [...] Sign Reading Time Taken Comments Blood Pressure 128/88 12/07/2019 3:53 PM CRAP SHOOTER Pulse 74 12/07/2019 3:53 PM CRAP SHOOTER Temperature 36.7 C (98 F) 12/07/2019 11:35 AM CRAP SHOOTER Respiratory Rate 18 12/07/2019 11:35 AM CRAP SHOOTER Oxygen Saturation 98% 12/07/2019 11:35 AM CRAP SHOOTER Inhaled Oxygen Concentration - - Weight 77.1 kg (170 lb) 12/07/2019 3:53 PM CRAP SHOOTER Height 160 cm (5' 3 ) 12/07/2019 3:53 PM CRAP SHOOTER Body Mass Index 30.11 12/07/2019 3:53 PM CRAP SHOOTER Plan of Treatment Health Maintenance Due Date Last Done Comments Colorectal Cancer Screening Colonoscopy (10 Years) 1959 Hepatitis C 12/17/1977 Mammogram Screening 1999 Zoster Vaccines (1 of 2) 12/17/2009 Pneumococcal Vaccine: 50+ Years (2 of 2 - PCV) 09/06/2023 09/06/2022 Pneumococcal Vaccine: Pediatrics (0 to 5 Years) and At-Risk Patients (6 to 49 Years) (2 of 2 - PCV) 09/06/2023 09/06/2022 COVID-19 Vaccine (3 - 2023-2 5 season) 2024 05/27/2022, 06/15/2021 Dexa Scan (General) 12/17/2024 DTaP, Tdap and Td Vaccines ( 2 - Td or Tdap) 11/01/2030 11/01/2020 RSV Immunization or 60+ Years (1 - 1-dose 75+ series) 12/17/2034 Meningococcal B Vaccine Aged Out No l onger eligible based on patient's age to complete this topic Meningococcal Vaccine Aged Out No wendy amanda eligible based on patient's age to complete this topic RSV Immunizations Under 20 Months Aged Out No longer eligible b ased on patient's age to complete this topic Insurance [facility] Care Teams Broaching Machine Set Up Operator Relationship Specialty Start Date End Date Rossana Nayak NP [address] [facility] [address] [place] [address] PCP - General 02/15/17 Deondre Donnelly MD [facility]. [address] [place] [address] [place] Seamless Tube Mill Operator CARDIOVASCULAR DISEASE 12/05/19
--- OUTSIDE RECORDS SUMMARY | 2025-01-16 16:39 | XMS_ITS | Encounter Summary ---
Author Organization [facility] Address [address] [place] [address] Care Team Providers Care Category Planner Name Role Phone Rossana Nayak NP Unavailable [phone] Kenroy Sheikh MD Unavailable [phone] Adry Shay MD Primary Care Provider [phone] Jerson Shoemaker Unavailable Unavailable Mine Patel MA Unavailable [phone] Christina Hart MA Unavailable Kiera Sanders MD Unavailable [phone] Encounter Details Date Type Department Care Team (Late st Contact Info) Description 03/17/[address] [facility] Health Information Management [address] [place] [id number] Scanning, Provider Social History Tobacco Use Types Packs/Day Years Used Date Smoking Tobacco: Former Cigarettes 0.1 10 1 - 07/2022 Passive Smoke Exposure: Past Smokeless Tobacco: Never Alcohol Use Standard Drinks/Week [...] week 04/14/2023 How often do you attend [facility] or [facility] services? Never 04/14/2023 Do you belong to any clubs o r organizations such as yarsani groups, unions, fraternal or athletic groups, or school groups? No 04/14/2023 How often do you attend meet ings of the clubs or organizations you belong to? Never 04/14/2023 Are you , , di vorced, , never , or living with a partner? Never 04/14/2023 AUDIT-C Answer Date Recorded Q1: How often do you have a drink containing alcohol? Never 01/13/2024 Q2: How many drinks containi ng alcohol do you have on a typical day when you are drinking? Patient does not drink Q3: How often do you have si x or more drinks on one occasion? Never 01/13/2024 Overall Financial Resource Strain (CARDIA) Answe r Date Recorded How hard is it for you to pa y for the very basics like food, housing, medical care, and heating? Not very hard 04/14/2023 PHQ-2 Answer Date Recorded PHQ-2 Total Score (If total score is 3 or more points, staff should administer the PHQ-9) 0 10/14/2023 Hunger Vital Sign Answer Date Recorded Within [...] place to sleep or slept in a prison (including now)? No 04/14/2023 Personal Safety Answer Date Recorded Have you ever been in or are you currently in a harmful physical or emotional relationship or is someone making you feel afraid or unsafe? Denies 11/25/2023 Comments No Sex and Gender Information Value Date Recorded Sex Assigned at Not on file Legal Sex Female 12:24 AM NOODLE MAKER Gender Identity Not on file Sexual Orientation Not on file documented as of this encounter Plan of Treatment Not on file documented as of this encounter Procedures Procedure Name Priority Date/Time Associated Diagnosis Comments SCAN - PATHOLOGY 03/17/2024 documented in this encounter Results * SCAN - PATHOLOGY (03/17/2024) us Provider Scanning Final Result documented in this encounter Visit Diagnoses Not on filedocumented in this encounter Additional Health Concerns Infection Onset Date Last Indicated Resolved Time COVID: Suspected 07/09/2024 07/09/2024 07/09/2024 10:57 AM CDT COVID: Suspected 09/14/2024 09/14/2024 09/14/2024 9:05 AM NOODLE MAKER COVID: Suspected 11/22/2024 11/22/2024 11/22/2024 11:00 AM NOODLE MAKER COVID19 11/22/2024 11/22/2024 12/02/2024 3:05 AM NOODLE MAKER COVID: Recovered Comment:Added based on recent COVID infection. 12/02/2024 12/09/2024 COVID: Suspected 12/09/2024 12/09/2024 12/09/2024 7:40 AM NOODLE MAKER documented as of this encounter Care Teams Category Planner Relationship Specialty Start Date End Date Adry Shay MD [address] [place] [address] PCP - General Internal Medicine 10/02/20 Rossana Nayak NP 12/09/19 Kenroy Sheikh MD [address] [place] [address] Power Builder Developer Cardiology 02/23/20 Jerson Shoemaker, RAWHIDE BONE ROLLER Speech Language Pathologist Speech Therapy 09/12/22 Mine Patel MA [address] [place] [address] [address] [place] [address] ACO Care Reduction Plant Supervisor 05/14/24 05/14/24 Christina Hart MA [address] [place] [address] [address] [place] [address] ACO Care Reduction Plant Supervisor 06/30/24 06/30/24 Kiera Sanders MD [facility] [facility] [address] [place] [address] Consulting Physician Pulmonary Disease 09/21/24 documented as of this encounter
[2025-01-16 16:56] VITALS: BP 129/82; PULSE 94; RESP 18; TEMP 37.2; O2SAT 97
--- OUTSIDE RECORDS SUMMARY | 2025-01-16 16:56 | XMS_ITS | CONTINUITY OF CARE DOCUMENT ---
Author Name susan davis Address Unknown Organization [facility] Address [address] [place] [address] Phone [phone] Care Team Providers Care Link Wire Fabric Machine Tender Name Role Phone Reji Fernández MD Unavailable [phone] Reji Fernández MD Unavailable INSURANCE PROVIDERS Payer name Policy type / Coverage type [place] red alliance party ID BE[place] MEDICAID (2) Medicaid [id number]
--- NOTE | 2025-01-16 17:13 | ED.URI ---
HPI - URI/Sore Throat General Chief Complaint: Headache Stated Complaint: Headache x 3 days Time Seen by Provider: 01/16/25 16:43 Source: patient Mode of arrival: ambulatory Limitations: no limitations History of Present Illness HPI Narrative: This is a 64-year-old female that presents to the emergency department for viral symptoms. Reports headache, cough, congestion, nausea, abdominal discomfort, myalgias. Denies fevers. Related Data Allergies Allergy/AdvReac Type Severity Reaction Status Date / Time No Known Allergies Allergy Verified 01/16/25 16:37 Review of Systems Review of Systems: CONSTITUTIONAL: Denies fever ENT: Reports congestion, sore throat, and otalgia. RESPIRATORY: Reports cough GASTROINTESTINAL: Reports abdominal pain, nausea MUSCULOSKELETAL: Reports back pain, and myalgia. NEUROLOGIC: Reports headache All systems reviewed & are unremarkable except as noted in HPI and below PMFSH Past Medical History Medical History (Updated 01/16/25 @ 20:17 by Mary Russell PA-C) History of diabetes mellitus Social History Social History (Updated 01/16/25 @ 17:18 by Mary Russell PA-C) Smoking status: Current some day smoker Exam Narrative: GENERAL: Well-appearing, well-nourished, and in no acute distress. HEAD: Normocephalic, atraumatic. EYES: EOMI. ENT: Nares clear, no rhinorrhea or epistaxis. Mucous membranes moist. Oropharynx without tonsillar hypertrophy exudate or other lesions. Bilateral TMs pearly heath non-bulging NECK: Supple. No adenopathy or masses. CHEST: Clear to auscultation. No respiratory distress. No wheezes rales or rhonchi HEART: Regular rate and rhythm. No murmur heard. Normal peripheral pulses. ABDOMEN: Soft, nontender, nondistended, normal active bowel sounds. EXTREMITIES: Normal range of motion. No edema. SKIN: Warm, dry, no rash. NEURO: No focal deficits. Alert and oriented x3. PSYCH: Normal mood and affect Course Course Emergency Course: Patient updated on her workup and agrees with plan of care. Requesting work note Vital Signs Vital signs: Vital Signs Temperature 99.0 F 01/16/25 16:56 Pulse Rate 94 01/16/25 16:56 Respiratory Rate 18 01/16/25 16:56 Blood Pressure 129/82 01/16/25 16:56 Pulse Oximetry 97 01/16/25 16:56 Oxygen Delivery Room Air 01/16/25 16:56 Temperature 99.0 F 01/16/25 16:56 Pulse Rate 94 01/16/25 16:56 Respiratory Rate 18 01/16/25 16:56 Blood Pressure 129/82 01/16/25 16:56 Pulse Oximetry 97 01/16/25 16:56 Oxygen Delivery Room Air 01/16/25 16:56 MDM - URI/Sore Throat MDM Narrative Medical decision making narrative: Patient presents the emergency department for viral symptoms. Ongoing over the last 2 days. Reports cough, headache, chills, nausea, myalgias. She is afebrile and nontoxic appearing. Her vitals are stable. Cbc without leukocytosis. Does show some hemoconcentration. Patient hydrated with a L of IV fluids in the ED. Metabolic panel without concerning findings. Urine without evidence of infection. Influenza, RSV and COVID screens are negative. Strep screen is also negative. Patient updated on her workup and agrees with plan of care. She is to follow up with primary provider. She was given warnings to return the ER Differential Diagnosis Differential diagnosis: Likely upper respiratory infection, otitis media, sinusitis, viral infection, bronchitis, influenza and pharyngitis Lab Data Attestation: I reviewed the patient's lab results. 01/16/25 17:40 01/16/25 17:39 Labs: Lab Results 01/16/25 01/16/25 01/16/25 Range/Units 17:28 17:39 17:40 WBC 5.0 (4.5-10.0) K/mm3 RBC 5.37 (4.2-5.4) M/mm3 Hgb 15.2 H (12.0-15.0) g/dL Hct 47.7 H (37.0-47.0) % MCV 88.8 (80-100) fl MCH 28.3 (26-34) pg MCHC 31.9 L (32-36) g/dl RDW 14.1 (11.5-14.5) % Plt Count 240 (150-375) k/mm3 MPV 9.5 (7.4-10.4) fl Immature Gran % (Auto) 0.4 (0-0.5) % Neut % (Auto) 48.5 (45.5-73.1) % Lymph % (Auto) 33.3 (18.3-44.2) % [place] % (Auto) 16.6 H (2.6-8.5) % Eos % (Auto) 0.6 (0-4.4) % Baso % (Auto) 0.6 (0.2-1.2) % Lymph # (Auto) 1.67 (0.9-3.2) K/mm3 [place] # (Auto) 0.8 H (0.1-0.6) K/mm3 Eos # (Auto) 0.0 (0-0.3) K/mm3 Baso # (Auto) 0.0 (0.0-0.1) K/mm3 Abs Immat Gran (auto) 0.02 (0.00-0.031) K/mm3 Absolute Neuts (auto) 2.4 (1.3-6.7) K/mm3 Absolute Nucleated RBC 0.000 (0.0-0.012) K/mm3 Nucleated RBC % 0.0 (0.0-0.2) % Sodium 136 L (137-145) mmol/L Potassium 3.7 (3.4-5.0) mmol/L Chloride 102 (98-107) mmol/L Carbon Dioxide 22 (22-30) mmol/L Anion Gap 12 (4-12) mmol/L BUN 9 (7-17) mg/dL Creatinine 0.70 (0.7-1.0) mg/dL Estim Creat Clear Calc 66 ml/min Estimated GFR > 60 (59 - ) Glucose 121 H (65-110) mg/dL Calcium 9.9 (8.4-10.2) mg/dL Total Bilirubin 0.4 (0.2-1.3) mg/dL AST 24 (14-36) U/L ALT 18 (6-35) U/L Alkaline Phosphatase 75 (38-126) U/L Total Protein 8.0 (6.3-8.2) g/dL Albumin 4.2 (3.5-5.1) g/dL Lipase 124 (23-300) U/L Urine Color (Yellow) Urine Appearance (Clear) Urine pH (5.0-9.0) Ur Specific [place] (1.001-1.035) Urine Protein (Negative) mg/dL Urine Glucose (UA) (Negative) mg/dL Urine Ketones (Negative) mg/dL Ur Blood (Man) (Negative) Urine Nitrate (Negative) Urine Bilirubin (Negative) Urine Urobilinogen (<2.0) mg/dL Leukocyte Esterase Rfl (Negative) TARSHA/UL Influenza A (RT-PCR) Negative (Negative) Influenza B (RT-PCR) Negative (Negative) RSV (RT-PCR) Negative (Negative) SARS-CoV-2 RNA (RT-PCR) Negative (Negative) Group A Strep (PCR) Not detected (Negative) 01/16/25 Range/Units 19:40 WBC (4.5-10.0) K/mm3 RBC (4.2-5.4) M/mm3 Hgb (12.0-15.0) g/dL Hct (37.0-47.0) % MCV (80-100) fl MCH (26-34) pg MCHC (32-36) g/dl RDW (11.5-14.5) % Plt Count (150-375) k/mm3 MPV (7.4-10.4) fl Immature Gran % (Auto) (0-0.5) % Neut % (Auto) (45.5-73.1) % Lymph % (Auto) (18.3-44.2) % [place] % (Auto) (2.6-8.5) % Eos % (Auto) (0-4.4) % Baso % (Auto) (0.2-1.2) % Lymph # (Auto) (0.9-3.2) K/mm3 [place] # (Auto) (0.1-0.6) K/mm3 Eos # (Auto) (0-0.3) K/mm3 Baso # (Auto) (0.0-0.1) K/mm3 Abs Immat Gran (auto) (0.00-0.031) K/mm3 Absolute Neuts (auto) (1.3-6.7) K/mm3 Absolute Nucleated RBC (0.0-0.012) K/mm3 Nucleated RBC % (0.0-0.2) % Sodium (137-145) mmol/L Potassium (3.4-5.0) mmol/L Chloride (98-107) mmol/L Carbon Dioxide (22-30) mmol/L Anion Gap (4-12) mmol/L BUN (7-17) mg/dL Creatinine (0.7-1.0) mg/dL Estim Creat Clear Calc ml/min Estimated GFR (59 - ) Glucose (65-110) mg/dL Calcium (8.4-10.2) mg/dL Total Bilirubin (0.2-1.3) mg/dL AST (14-36) U/L ALT (6-35) U/L Alkaline Phosphatase (38-126) U/L Total Protein (6.3-8.2) g/dL Albumin (3.5-5.1) g/dL Lipase (23-300) U/L Urine Color Yellow (Yellow) Urine Appearance Clear (Clear) Urine pH 5.5 (5.0-9.0) Ur Specific [place] 1.007 (1.001-1.035) Urine Protein Negative (Negative) mg/dL Urine Glucose (UA) Negative (Negative) mg/dL Urine Ketones Negative (Negative) mg/dL Ur Blood (Man) Negative (Negative) Urine Nitrate Negative (Negative) Urine Bilirubin Negative (Negative) Urine Urobilinogen 0.2 (<2.0) mg/dL Leukocyte Esterase Rfl Negative (Negative) TARSHA/UL Influenza A (RT-PCR) (Negative) Influenza B (RT-PCR) (Negative) RSV (RT-PCR) (Negative) SARS-CoV-2 RNA (RT-PCR) (Negative) Group A Strep (PCR) (Negative) Critical Care Time Critical Care Time Critical Care Time: No Discharge Plan Discharge Clinical Impression: Acute viral syndrome Patient Disposition: Home Condition: Stable Instructions: Viral Syndrome (ED) Additional Instructions: Return to the emergency department if you experience fever, chest pain, shortness of breath, abdominal pain with nausea and vomiting, weakness, numbness, or any other symptoms that are concerning to you. Rest. Remain well hydrated. Over the counter pain medication as needed. Ondansetron as needed for nausea Follow up with your primary care doctor Patient Language: Croatian Prescriptions: New ondansetron 4 mg tablet,disintegrating 4 mg PO Q8H PRN (Reason: nausea and vomiting) Qty: 10 0RF Follow-up/Referrals: PHYSICIAN,MULTIMEDIA JOURNALIST [Primary Care Provider] - Stand Alone Forms: Work/School Release IP
[2025-01-16 17:15] VITALS: BP 125/94; PULSE 98; RESP 14; O2SAT 98
[2025-01-16] MEDS: ACETAMINOPHEN 500 MG TABLET 1000 MG PO (17:50)
[2025-01-16] MEDS: SODIUM CHLORIDE 0.9% IV 1,000 ML 999 ML IV CONT (17:50)
[2025-01-16] MEDS: ONDANSETRON INJ 4 MG/2 ML VIAL IV PUSH (17:51)
[2025-01-16] MEDS: FAMOTIDINE 20 MG/2 ML VIAL IV PUSH (17:51)
[2025-01-16 17:52] LABS: Basophils Percent Auto 0.6 % (0.2-1.2); Eosinophils Percent Auto 0.6 % (0-4.4); Hematocrit 47.7 % (37.0-47.0); Hemoglobin 15.2 g/dL (12.0-15.0); Immature Granulocyte Absolute 0.02 K/mm3 (0.00-0.031); Immature Granulocyte Percent A 0.4 % (0-0.5); Lymphocytes Absolute Auto 1.67 K/mm3 (0.9-3.2); Lymphocytes Percent Auto 33.3 % (18.3-44.2); Mean Corpuscular HGB Conc 31.9 g/dl (32-36); Mean Corpuscular Hemoglobin 28.3 pg (26-34); Mean Corpuscular Volume 88.8 fl (80-100); Mean Platelet Volume 9.5 fl (7.4-10.4); Monocytes Absolute Auto 0.8 K/mm3 (0.1-0.6); Monocytes Percent Auto 16.6 % (2.6-8.5); Neutrophils Absolute Auto 2.4 K/mm3 (1.3-6.7); Neutrophils Percent Auto 48.5 % (45.5-73.1); Platelet Count Result 240 k/mm3 (150-375); Red Blood Count 5.37 M/mm3 (4.2-5.4); Red Cell Distribution Width 14.1 % (11.5-14.5)
[2025-01-16 17:59] LABS: Alanine Aminotransferase 18 U/L (6-35); Albumin Level 4.2 g/dL (3.5-5.1); Alkaline Phosphatase 75 U/L (38-126); Anion Gap 12 mmol/L (4-12); Aspartate Amino Transferase 24 U/L (14-36); Bilirubin,Total 0.4 mg/dL (0.2-1.3); Blood Urea Nitrogen 9 mg/dL (7-17); Calcium 9.9 mg/dL (8.4-10.2); Carbon Dioxide 22 mmol/L (22-30); Chloride 102 mmol/L (98-107); Estimated CRCL calculation 66 ml/min; Estimated Glomerular Filt Rate > 60; Glucose 121 mg/dL (65-110); Lipase 124 U/L (23-300); Potassium 3.7 mmol/L (3.4-5.0); Sodium 136 mmol/L (137-145)
[2025-01-16 18:11] LABS: Strep Group A RT-PCR NOT DETECTED (Negative)
[2025-01-16 18:22] LABS: Influenza A QL RT-PCR Negative (Negative); Influenza B QL RT-PCR Negative (Negative); RSV RNA, RT-PCR Negative (Negative); SARS-CoV-2 RNA PCR Negative (Negative)
[2025-01-16 19:46] LABS: Add Urine Microscopic? NO; Appearance Urine Clear (Clear); Bilirubin Urine Negative (Negative); Blood Urine Negative (Negative); Color Urine Yellow (Yellow); Glucose Urine UA Negative (Negative); Ketones Urine Negative (Negative); Leukocyte Esterase Ur Negative LEU/UL (Negative); Nitrate Urine Negative (Negative); Protein Urine Negative (Negative); Specific Grav Ur 1.007 (1.001-1.035); Urobilinogen Urine 0.2 mg/dL (<2.0); pH Urine 5.5 (5.0-9.0)
[2025-01-16] MEDS: METOCLOPRAMIDE HCL INJ 10 MG/2 ML VIAL IV PUSH (20:27)
[2025-01-16] MEDS: diphenhydrAMINE HCl INJ 50 MG/ML VIAL 25 MG IV PUSH (20:27)
[2025-01-16 20:36] VITALS: BP 129/85; PULSE 88; RESP 16; O2SAT 98
== END 2025-01-16 20:38 | disposition home or self-care (01) ==
PROVIDERS: Emergency Provider Physician Assistant
DX: B34.9 Viral infection, unspecified (principal); Z20.822 Contact with and (suspected) exposure to COVID-19; E11.9 Type 2 diabetes mellitus without complications; F17.210 Nicotine dependence, cigarettes, uncomplicated
CPT/HCPCS: 36415; 80053; 81003; 83690; 85025; 87637; 87651; 96361; 96374; 96375; 99284; A9270; J1200; J2405; J2765; J7030